=== PATIENT | male | born 2000 | race Caucasian/White ===

== ENCOUNTER → 2020-02-15 16:51 | Outpatient (BNVA) | payer BC, SELFPAY | PROVIDERS: Family Provider General Practice; PCP Family Medicine; Visit Provider Nurse Practitioner Family | DX: J02.9 Acute pharyngitis, unspecified (principal); J02.0 Streptococcal pharyngitis | CPT/HCPCS: 87880 ==

== ENCOUNTER → 2022-12-08 16:42 | Outpatient (BNVA) | payer SELFPAY | PROVIDERS: Family Provider General Practice; PCP Family Medicine; Visit Provider Registered Nurse Neonatal Intensive Care | DX: S29.9XXA Unspecified injury of thorax, initial encounter (principal); W19.XXXA Unspecified fall, initial encounter | CPT/HCPCS: 71046 ==

== ENCOUNTER 2023-03-15 21:00 | Emergency (ER) | payer SELFPAY ==
[2023-03-15 21:08] VITALS: BP 157/101; PULSE 114; RESP 16; TEMP 37.1; O2SAT 98; BMI 44.7
--- NOTE | 2023-03-15 21:26 | W.ED.BACK ---
HPI - Back Pain/Injury General: Chief Complaint: Back Pain/Injury Stated Complaint: cough, back pain Time Seen by Provider: 03/15/23 21:14 Source: patient Mode of arrival: ambulatory Limitations: no limitations History of Present Illness: Patient is a 22-year-old male who presents to ED today with complaint of posterior rib/chest pain. Patient states he has had a cough for several weeks now. He states earlier today he was coughing so hard that he heard a pop in the left side of his back. Since then he has had pain with deep inhalation, movement, further coughing. He has not complaining of shortness of breath or difficulty breathing. No abdominal pain. He has not been running fevers. MD elicited complaint: back pain Onset (ago): hour(s) Timing: constant Severity: severe Similar Symptoms Previously: No Radiation: none Exacerbating factors: movement and other (coughing) Relieving factors: none Associated symptoms: Deny abdominal pain, chills, fatigue, fever(s), nausea, syncope or vomiting Work related injury: No Review of Systems Const: Denies: fever(s), chills, body aches, fatigue or malaise Card: Reports: chest pain (L posterior chest wall pain); Denies: palpitations, irregular heart rhythm, edema, swelling of feet/ankles, lightheadedness, syncope, pre-syncope, dyspnea on exertion, orthopnea, leg pain with exertion or acrocyanosis Resp: Reports: dyspnea, non-productive cough and pain on inspiration; Denies: productive cough, wheezing, stridor, change in phlegm color, hemoptysis or chest congestion GI: Denies: abdominal pain, nausea or vomiting Musc: Reports: back pain; Denies: neck pain, extremity pain, extremity swelling, joint pain or joint swelling Skin/Breast: Denies: rash Neuro: Denies: headache(s), numbness in extremities, weakness in extremities, sensory changes or dizziness PFSH ED PFSH: Social History Smoking and tobacco status: never smoked Alcohol intake: never Substance/Drug Use: never Physical Exam Const: COMMON NORMALS: no acute distress, patient oriented x3, no limitations and alert GENERAL APPEARANCE: cooperative NUTRITIONAL APPEARANCE: obese ORIENTATION/CONSCIOUSNESS: Yes awake, Yes oriented to person, Yes oriented to place and Yes oriented to time Chest: COMMONS NORMALS: normal inspection of the chest CHEST: Yes tenderness (posteriolateral lower chest wall/rib pain; no crepitus noted) Resp: COMMON NORMALS: normal respiratory effort and clear to auscultation bilaterally AUSCULTATION: clear to auscultation bilaterally Cardio: COMMON NORMALS: regular rate and regular rhythm RATE: regular rate RHYTHM: regular rhythm GI: COMMON NORMALS: Normal to inspection, nondistended, normoactive bowel sounds present, Soft to palpation, non-tender and no masses PALPATION: Yes Soft to palpation Neuro: COMMON NORMALS: patient oriented x3 SENSORIUM/ORIENTATION: Yes alert, Yes oriented to person, Yes oriented to place and Yes oriented to time Course Vital Signs: Vital signs: Vital Signs Temperature 98.7 F 03/15/23 23:25 Pulse Rate 101 H 03/15/23 23:25 Respiratory Rate 16 03/15/23 23:25 Blood Pressure 155/105 03/15/23 23:25 Pulse Oximetry 99 03/15/23 23:25 Oxygen Delivery Me thod Room Air 03/15/23 21:08 MDM - Back Pain/Injury Medical Decision Making Patient here with a cough over the past several weeks as well as a complaint of coughing earlier today and hearing a pop to the posterior lateral aspect of the left chest wall. Patient does have tenderness here but no crepitus was appreciated. Lung sounds are normal. CXR showing no osseous abnormality but he does have findings suspicious for left lower lobe pneumonia. I suspect this is viral however we will go ahead and place him on antibiotics for coverage of community-acquired pneumonia. Will obtain respiratory panel. Will call with any results and we can tailor treatment at that time. Return ED precautions given. Will write him for anti-inflammatories for the chest wall strain. Labs Radiology Impressions Ribs X-Ray 03/15/23 21:52 IMPRESSION: 1. Mild nonspecific airspace disease at the left lung base, suspicious for left lower lobe pneumonia. This is new when compared to 12/08/2022. 2. No acute osseous abnormality demonstrated. All radiology interpretation(s) finalized by discharge Discharge Plan Discharge Patient Disposition: Home Clinical Impression: Chest wall muscle strain Qualifiers: Encounter type: initial encounter Qualified Code(s): S29.011A - Strain of muscle and tendon of front wall of thorax, initial encounter Left lower lobe pneumonia Qualifiers: Pneumonia type: due to unspecified organism Qualified Code(s): J18.9 - Pneumonia, unspecified organism Condition: Stable Prescriptions: New amoxicillin 500 mg capsule 500 mg PO BID 7 Days Qty: 14 0RF azithromycin 250 mg tablet See Rx Instructions .ROUTE .COMPLEX Qty: 6 0RF Rx Instructions: take 500 mg today (day 1), then 250 mg for 4 days (days 2-5) ibuprofen 800 mg tablet 800 mg PO Q8H PRN (Reason: pain) Qty: 20 0RF Discharge Orders: Discharge ED (Routine); Ordered 03/15/23 Ordered By: Cheryl Harris Referrals: Kelton Harmon MD [Family Provider] - Yamilet Jackson FNP [Primary Care Provider] - Activity Restrictions/Additional Instructions: As we discussed we will collect a respiratory panel and sent to lab. Results of this will not be resulted until tomorrow. You should get a follow-up phone call if something comes back positive. Your chest x-ray today showing suspicion for a left lower lobe pneumonia. You will be placed on antibiotics for this. We will treat your musculoskeletal chest wall strain with anti-inflammatories. Please follow-up with primary care later this week if symptoms do not seem to be improving. May return to the emergency department for worsening pain, shortness of breath, difficulty breathing, fevers, or any other concerns you may have. Coding Level of Care Code ED Clinical Technologist for Bekah Sahu
--- NOTE | 2023-03-15 21:52 | XRR_ITS ---
PROCEDURE INFORMATION: Exam: XR Left Ribs with PA Chest Exam date and time: 03/15/2023 9:59 PM Age: 22 years old Clinical indication: Painful respiration; Additional info: Cough, chest pain TECHNIQUE: Imaging protocol: Radiologic exam of the left ribs with PA chest. Views: 3 views COMPARISON: CR XR chest 2V* [id number] 12/08/2022 4:52 PM FINDINGS: Lungs: Mild nonspecific airspace disease at the left lung base, suspicious for left lower lobe pneumonia. Pleural spaces: No pleural effusion. No pneumothorax. Heart/Mediastinum: Unremarkable. No cardiomegaly. Bones/joints: No acute fracture or other acute osseous abnormality. XR/XR ribs LT mn 3V w CXR1V [id number] IMPRESSION: 1. Mild nonspecific airspace disease at the left lung base, suspicious for left lower lobe pneumonia. This is new when compared to 12/08/2022. 2. No acute osseous abnormality demonstrated.
[2023-03-15] MEDS: ketorolac 60 mg/2 mL INJ IM (22:12)
[2023-03-15] MEDS: orphenadrine 30 mg/mL Inj 2 mL 60 MG IM (22:12)
[2023-03-15 22:18] VITALS: BP 155/105; PULSE 101; RESP 16; O2SAT 99
[2023-03-15] MEDS: azithromycin 250 mg Tablet 500 MG PO (23:17)
[2023-03-15] MEDS: amoxicillin 500 mg Capsule PO (23:17)
[2023-03-15 23:25] VITALS: BP 155/105; PULSE 101; RESP 16; TEMP 37.1; O2SAT 99
[2023-03-16 01:18] LABS: Adenovirus Not Detected (NOT DETECT); Chlamydia Pneumoniae Not Detected (NOT DETECT); Coronavirus 229E,HKU1,NL63,OC4 Not Detected (NOT DETECT); Human Metapneumovirus Not Detected (NOT DETECT); Human Rhinovirus/Enterovirus Not Detected (NOT DETECT); Influenza A Not Detected (NOT DETECT); Influenza A H1 Not Detected (NOT DETECT); Influenza A H1-2009 Not Detected (NOT DETECT); Influenza A H3 Not Detected (NOT DETECT); Influenza B Not Detected (NOT DETECT); Mycoplasma Pneumoniae Not Detected (NOT DETECT); Parainfluenza Virus Type 1 Not Detected (NOT DETECT); Parainfluenza Virus Type 2 Not Detected (NOT DETECT); Parainfluenza Virus Type 3 Not Detected (NOT DETECT); Parainfluenza Virus Type 4 Not Detected (NOT DETECT); Respiratory Syncytial Virus A Not Detected (NOT DETECT); Respiratory Syncytial Virus B Not Detected (NOT DETECT); SARS-COV-2 Not Detected (NOT DETECT)
== END 2023-03-15 23:26 | disposition home or self-care (01) ==
PROVIDERS: Emergency Provider Physician Assistant; Family Provider General Practice; PCP Registered Nurse
DX: J18.9 Pneumonia, unspecified organism (principal); S29.011A Strain of muscle and tendon of front wall of thorax, initial encounter; X50.9XXA Other and unspecified overexertion or strenuous movements or postures, initial encounter
CPT/HCPCS: 71101; 87486; 87581; 87633; 96372; 99284; J1885; J2360; Q0144

== ENCOUNTER → 2023-06-21 16:26 | Outpatient (BNVA) | payer OTHER, SELFPAY | PROVIDERS: Family Provider General Practice; PCP Family Medicine Adult Medicine; Visit Provider Family Medicine Adult Medicine | DX: R63.4 Abnormal weight loss (principal); R63.1 Polydipsia; F54 Psychological and behavioral factors associated with disorders or diseases classified elsewhere; R11.2 Nausea with vomiting, unspecified; F41.9 Anxiety disorder, unspecified; F32.A Depression, unspecified; E66.9 Obesity, unspecified; K21.9 Gastro-esophageal reflux disease without esophagitis | CPT/HCPCS: 80053; 83036; 84443; 85025 ==

== ENCOUNTER 2023-07-07 09:07 | Outpatient (CLI) | payer OTHER, SELFPAY ==
--- NOTE | 2023-07-07 09:30 | US_ITS ---
WS: [id number] ULTRASOUND ABDOMEN CLINICAL INFORMATION: 90 lb weight loss COMPARISON: None. FINDINGS: Liver Size: Enlarged Craniocaudal length: 17.2 cm. Echogenicity: Normal. Surface nodularity: None. Mass (size and location): 2 echogenic lesions nonspecific but suspicious for cavernous hemangiomas. Bile ducts Intrahepatic ducts: Normal. Common bile duct diameter: 0.4 cm. Gallbladder Normal. Gallstones: None. Gallbladder sludge: None. Gallbladder wall thickening: None. Pericholecystic fluid: None. Sonographic Mcmanus sign: Absent. Pancreas Not well seen Spleen Splenomegaly: Mild Craniocaudal length: 12.5 cm. Right kidney: Hydronephrosis upper RIGHT kidney. Parenchymal calcifications. Hydronephrosis: Mild Size: 13.8 cm x 6.6 cm x 6.7 cm Left kidney: Normal. Hydronephrosis: None. Size: 12.8 cm x 4.9 cm x 5.0 cm. Abdominal aorta and IVC Visualized portions are normal. Ascites: None. IMPRESSION: 1. Small RIGHT pleural effusion. Small pericardial effusion. 2. Normal gallbladder and common bile duct. 3. No hydronephrosis in the LEFT kidney. 4. Mild splenomegaly measuring 12.5 cm. 5. 2 small echogenic lesions in the liver measuring 1.1 x 0.9 cm and 1.9 x 1.7 cm. These most likely represent small cavernous hemangiomas but recommend contrast-enhanced CT abdomen pelvis with liver p rotocol for confirmation. 6. Mild hepatomegaly measuring 17.2 cm 7. Mild hydronephrosis upper pole RIGHT kidney with intraparenchymal calcifications. Recommend furth er evaluation with noncontrast CT abdomen/pelvis to evaluate for obstruction. *Recommend follow-up with noncontrast CT abdomen pelvis (to evaluate for obstructing renal calculi) f ollowed by contrast-enhanced CT abdomen pelvis with liver protocol with delayed imaging for liver hem angioma evaluation.
== END 2023-07-07 09:08 | disposition home or self-care (01) ==
LOC: RAD 09:08
PROVIDERS: Family Provider General Practice; PCP Family Medicine Adult Medicine; Visit Provider Family Medicine Adult Medicine
DX: R11.2 Nausea with vomiting, unspecified (principal); R63.4 Abnormal weight loss; E66.9 Obesity, unspecified; I31.39 Other pericardial effusion (noninflammatory); J90 Pleural effusion, not elsewhere classified; D73.9 Disease of spleen, unspecified; K76.9 Liver disease, unspecified; R16.0 Hepatomegaly, not elsewhere classified; N13.30 Unspecified hydronephrosis; N20.0 Calculus of kidney
CPT/HCPCS: 76700

== ENCOUNTER → 2023-07-13 16:32 | Outpatient (BNVA) | payer OTHER, SELFPAY | PROVIDERS: Family Provider General Practice; PCP Family Medicine Adult Medicine; Visit Provider Family Medicine Adult Medicine | DX: R16.2 Hepatomegaly with splenomegaly, not elsewhere classified (principal); R93.5 Abnormal findings on diagnostic imaging of other abdominal regions, including retroperitoneum; D72.9 Disorder of white blood cells, unspecified; R05.3 Chronic cough; J40 Bronchitis, not specified as acute or chronic; R63.4 Abnormal weight loss | CPT/HCPCS: 85025 ==

== ENCOUNTER → 2023-07-27 16:26 | Outpatient (BNVA) | payer OTHER, SELFPAY | PROVIDERS: Family Provider General Practice; PCP Family Medicine Adult Medicine; Visit Provider Family Medicine Adult Medicine | DX: D72.9 Disorder of white blood cells, unspecified (principal); R63.4 Abnormal weight loss; R16.2 Hepatomegaly with splenomegaly, not elsewhere classified; R93.5 Abnormal findings on diagnostic imaging of other abdominal regions, including retroperitoneum; K21.9 Gastro-esophageal reflux disease without esophagitis; R22.32 Localized swelling, mass and lump, left upper limb; R05.3 Chronic cough; E66.9 Obesity, unspecified; F41.9 Anxiety disorder, unspecified; F32.A Depression, unspecified; Z79.899 Other long term (current) drug therapy | CPT/HCPCS: 85025; 86140 ==

== ENCOUNTER 2023-08-03 12:44 | Outpatient (CLI) | payer OTHER, MEDICAID, SELFPAY ==
--- NOTE | 2023-08-03 13:15 | CTR_ITS ---
PROCEDURE INFORMATION: Exam: CT Chest Without and With Contrast; Diagnostic Exam date and time: 08/03/2023 1:36 PM Age: 22 years old Clinical indication: Other: 100lb weight loss since feb. Cough since November, elevated white count; Additional info: Weight loss, elevated white count for 4 months last was 19,000 left TECHNIQUE: Imaging protocol: Diagnostic computed tomography of the chest without and with contrast. Radiation optimization: All CT scans at this facility use at least one of these dose optimization techniques: automated exposure control; mA and/or kV adjustment per patient size (includes targeted exams where dose is matched to clinical indication); or iterative reconstruction. Contrast material: OMNI 350; Contrast volume: 95 ml; Contrast route: INTRAVENOUS (IV); COMPARISON: CR (CHEST, ) 03/15/2023 9:59 PM RADIATION DOSE METRICS: Total DLP (mGy-cm): 2218.63 FINDINGS: Thyroid: The partially imaged bilateral thyroid lobes are unremarkable. Lungs: Innumerable pulmonary nodules, which where discernible appear to be peribronchovascular in distribution. Focal call consolidative densities anterior right apex, anterior and posterior segments right upper lobe. Pleural spaces: Large dependent right pleural effusion. No pneumothorax. Heart: No cardiomegaly. No pericardial effusion. Coronary arteries: No coronary artery calcifications. Lymph nodes: Extensive left axillary lymphadenopathy, largest 3 cm short axis. Mild right axillary lymphadenopathy, largest measuring 1.9 cm short axis. Right supraclavicular lymph node measuring 2.6 cm short axis. Left supraclavicular lymph node measuring 18 mm short axis. Anterior mediastinal lymphadenopathy, largest 2.0 cm short axis. Right internal mammary lymph node measuring 17 mm short axis. Right paratracheal lymph nodes, largest 3.3 cm short axis. Right hilar lymph nodes, largest 3.5 cm short axis. Subcarinal lymph node measuring 4.1 cm short axis. Left hilar lymph nodes, largest 3.0 cm short axis. Right paraesophageal lymph nodes, largest 2.9 cm short axis. Vasculature: Unremarkable. No aortic aneurysm. Bones/joints: Left mid thoracic spine vertebral body marginal osteophyte. Destructive lesion left posterolateral 11th rib with adjacent callus. Subacute possibly pathologic fracture posterolateral left 10th rib. Superior T2 lytic lesion which is poorly delineated and proximally 12.5 mm in size. Moderate T7-8 and T8-9 spondylosis. Mild T6-7 and T7-8 spondylosis. Soft tissues: Unremarkable. PROCEDURE INFORMATION: Exam: CT Abdomen And Pelvis Without And With Contrast Exam date and time: 08/03/2023 1:36 PM Age: 22 years old Clinical indication: Other: 100lb weight loss since feb. Cough since November, elevated white count; Additional info: Weight loss, elevated white count for 4 months last was 19,000 left TECHNIQUE: Imaging protocol: Computed tomography of the abdomen and pelvis without and with contrast. Radiation optimization: All CT scans at this facility use at least one of these dose optimization techniques: automated exposure control; mA and/or kV adjustment per patient size (includes targeted exams where dose is matched to clinical indication); or iterative reconstruction. Contrast material: OMNI 350; Contrast volume: 95 ml; Contrast route: INTRAVENOUS (IV); COMPARISON: US abdomen complete* [id number] 07/07/2023 9:15 AM RADIATION DOSE METRICS: Total DLP (mGy-cm): 2218.63 FINDINGS: Liver: Focal hypoattenuation of the hepatic left lobe medial segment adjacent to the falciform ligament fissure and adjacent to the gallbladder fossa, likely representing focal fatty infiltration. Gallbladder and bile ducts: Normal. No calcified stones. No ductal dilation. Pancreas: Normal. No ductal dilation. Spleen: Multiple hypoenhancing splenic foci, largest 10.9 mm. The spleen is enlarged measuring cm longitudinally. Adrenal glands: Normal. No mass. Kidneys and ureters: Horseshoe kidney. Right renal calculi, the largest in the lateral kidney extending into the lateral upper renal pelvis measuring 2.7 cm, with upper pole severe caliectasis. Stomach and bowel: Unremarkable. No obstruction. No mucosal thickening. Appendix: No evidence of appendicitis. Intraperitoneal space: Unremarkable. No free air. No significant fluid collection. Vasculature: Right pelvic calcified phleboliths. Lymph nodes: Upper retroperitoneal (renal level, suprarenal predominant) and celiac lymphadenopathy, the largest in the aortocaval lymph node measuring 3.5 cm AP dimension. Left internal iliac lymph node measuring 8.7 mm short axis. Right external iliac lymph node measuring 10.5 mm short axis. Left common iliac lymph nodes, largest measuring 8.8 mm short axis. Urinary bladder: The urinary bladder is decompressed and difficult to assess. Reproductive: Unremarkable as visualized. Bones/joints: Mild right L1-L2 central spondylosis. Moderate L3-L4, mild L5-S1 and T12-L1 spondylosis. Soft tissues: Unremarkable. CT/CT abdpel wo/w [id number] IMPRESSION: 1. Extensive lymphadenopathy. Consider lymphoma. 2. Large dependent right pleural effusion. 3. Innumerable pulmonary nodules, predominantly peribronchovascular. Differential diagnosis includes neoplastic and infectious etiologies. 4. Focal call consolidative densities anterior right apex, anterior and posterior segments right upper lobe. Pneumonia is difficult to exclude. Clinical correlation is recommended. 5. Lytic bony lesions concerning for neoplasia. 6. Please see the abdomen/pelvis CT report of the same date for additional findings. IMPRESSION: 1. Horseshoe kidney. 2. Right renal calyceal and pelvic lithiasis, with upper pole major calyx obstruction. 3. Upper abdominal lymphadenopathy. Consider lymphoma. 4. Multiple hypoenhancing splenic foci, differential diagnosis includes neoplasia and infection. 5. Mild splenomegaly. 6. Please see the CT chest report of the same date for additional findings.
[2023-08-03] MEDS: iohexol 350 mg/mL 500 mL Btl (per mL) PO (13:29)
[2023-08-03] MEDS: iohexol 350 mg/mL 500 mL Btl (per mL) IV (13:46)
== END 2023-08-03 12:45 | disposition home or self-care (01) ==
LOC: RAD 12:44
PROVIDERS: Family Provider General Practice; PCP Family Medicine Adult Medicine; Visit Provider Family Medicine Adult Medicine
DX: R16.2 Hepatomegaly with splenomegaly, not elsewhere classified (principal); R11.2 Nausea with vomiting, unspecified; N20.0 Calculus of kidney; Q63.1 Lobulated, fused and horseshoe kidney; R59.1 Generalized enlarged lymph nodes; J90 Pleural effusion, not elsewhere classified; R91.8 Other nonspecific abnormal finding of lung field; M89.9 Disorder of bone, unspecified; R63.4 Abnormal weight loss; D72.9 Disorder of white blood cells, unspecified
CPT/HCPCS: 71260; 74178; Q9967

== ENCOUNTER 2023-08-08 07:28 | Emergency (ER) | payer OTHER, MEDICAID, SELFPAY ==
[2023-08-08 07:35] VITALS: BP 159/89; PULSE 119; RESP 16; TEMP 37.2; O2SAT 89; BMI 31.3
--- NOTE | 2023-08-08 07:36 | XR_ITS ---
WS: [id number] PORTABLE CHEST HISTORY: dyspnea/cough COMPARISON: 03/15/2023, chest CT 08/03/2023 Patient has extensive abnormalities throughout both lungs and into the mediastinum. There are numerou s scattered nodular opacifications and more consolidated areas centrally. On the recent CT there are multiple pulmonary nodules of various sizes with lymphadenopathy centrally. Small bilateral pleural e ffusions. Cardiac size: Heart size is being obscured by the airspace disease and adenopathy. On the recent CT h eart size was normal. Mediastinum/Aorta: Dense areas of consolidation greatest along the RIGHT paratracheal region and RIGH T infrahilar consistent with adenopathy previously described. Patient has extensive bilateral adenopa thy encasing the trachea. No osseous abnormality seen. IMPRESSION: 1. Innumerable bilateral pulmonary nodules with mediastinal and hilar lymphadenopathy. These changes were also described on the CT of 08/03/2023. 2. Most likely neoplastic/lymphoma or infectious such as fungal in etiology.
--- NOTE | 2023-08-08 08:09 | ED_ITS ---
HPI - General Adult 2 General: Chief complaint: General Medical Stated complaint: cough Time Seen by Provider: 08/08/23 07:35 Source: patient Mode of arrival: ambulatory History of Present Illness: 22-year-old male presents emergency room he states he has not felt well since February 2023. Onset (ago): month(s) Severity: moderate Pain Consistency: constant Relieving factors: none Exacerbating factors: none Associated symptoms: Deny chest pain, confusion, cough, diaphoresis, decreased appetite, dyspnea, fevers/chills, headache(s), malaise, nausea, rash, palpitations, seizures, short of breath, syncope, vomiting or weakness Treatments prior to arrival: none Review of Systems 2 Const: Denies: fever(s), chills, malaise or diaphoresis Card: Denies: chest pain, palpitations or syncope Resp: Denies: dyspnea GI: Denies: abdominal pain, nausea or vomiting : Denies: flank pain, dysuria, urinary frequency or urinary urgency Musc: Reports: neck pain; Denies: back pain Skin/Breast: Denies: rash or pruritus Neuro: Denies: headache(s) or confusion Stanley/Lymph: Reports: enlarged lymph nodes and tender lymph nodes PFSH ED 2 PFSH: Medical History (Updated 08/08/23 @ 16:30 by Antoine Palumbo DO) Metastasis to lung Mass of left axilla Bronchitis Chronic coughing Neutrophilic leukocytosis Hepatosplenomegaly Abnormal abdominal ultrasound Excessive weight loss Allergic rhinitis due to allergen Obesity (BMI 30-39.9) Anxiety and depression GERD (gastroesophageal reflux disease) No pertinent past medical history Surgical History No pertinent past surgical history Family History Father Stroke Hypertension Mother Thyroid disease Social History Smoking and tobacco/nicotine status: never used tobacco/nicotine Alcohol intake: never Substance/Drug Use: never Physical Exam 2 Const: GENERAL APPEARANCE: cooperative and comfortable O RIENTATION/CONSCIOUSNESS: Yes awake, Yes oriented to person, Yes oriented to place and Yes oriented to time HENMT: COMMON NORMALS: normocephalic, atraumatic and hearing grossly normal bilaterally HEAD & SCALP: normocephalic and atraumatic Lymph: LYMPHATIC: lymphadenopathy (Anterior and posterior cervical supraclavicular and axillary bilaterally) bilateral OTHER: No inguinal nodes noted Resp: COMMON NORMALS: normal respiratory effort, No retractions, No use of accessory muscles and clear to auscultation bilaterally AUSCULTATION: clear to auscultation bilaterally Cardio: COMMON NORMALS: regular rate, regular rhythm and No murmurs present (Cardio) RATE: regular rate RHYTHM: regular rhythm GI: COMMON NORMALS: Soft to palpation and No hepatosplenomegaly present A USCULTATION: Yes normoactive bowel sounds PALPATION: Yes Soft to palpation, No Tenderness to palpation present (GI), No Guarding due to palpation present (GI) and Yes No hepatosplenomegaly present Extremity: COMMON NORMALS: normal to inspection, capillary refill normal, no clubbing, cyanosis or edema, no calf tenderness and no pedal edema Neuro: SENSORIUM/ORIENTATION: Yes oriented to person, Yes oriented to place and Yes oriented to time Skin: COMMON NORMALS: no rashes or lesions noted GENERAL SKIN EXAM: no rashes or lesions noted Course 2 Vital Signs: Vital signs: Vital Signs Temperature 98.9 F 08/08/23 07:35 Pulse Rate 119 H 08/08/23 07:35 Respiratory Rate 16 08/08/23 07:35 Blood Pressure 159/89 08/08/23 07:35 Pulse Oximetry 86 L 08/08/23 12:03 Oxygen Delivery Me thod Room Air 08/08/23 07:35 Oxygen Flow Rate 3 08/08/23 12:03 [facility] - General Adult Medical Decision Making Patient has had significant weight loss also has extremely abnormal imaging CTA of the chest and the chest x-ray. There is no PE. He is requiring oxygen. I discussed with Dr. Baldwin and with Dr. Vickers. After discussion we decided ultimately discharge patient home with oxygen support which she did qualify for 3 L/min. We have scheduled an ultrasound-guided needle core biopsy tomorrow which Dr. Vázquez agreed with. I have confirmed in that with scheduling that is scheduled for tomorrow. He had an appoint with Dr. Baldwin tomorrow we have canceled that and rescheduled for later in the week or hoping that by then we will have confirmation of diagnosis by tissue biopsy. Also contacted Dr. Fuller to update him on what was done today is to help coordinate and expedite diagnosis and treatment. Patient was discharged home with oxygen from home after home O2 eval. Return if has any worsening problems. Medical Records I reviewed the patient's medical records. Lab Data I reviewed the patient's lab results. 08/08/23 08:23 08/08/23 08:23 Laboratory Results WBC 20.56 10^3/uL (3.29-11.43) H 08/08/23 08:23 RBC 4.93 10^6/uL (3.85-5.65) 08/08/23 08:23 Hgb 11.60 g/dL (11.27-16.99) 08/08/23 08:23 Hct 38.0 % (37-53) 08/08/23 08:23 MCV 77.1 fl (82-101) L 08/08/23 08:23 MCH 23.5 pg (27-33) L 08/08/23 08:23 MCHC 30.5 g/dL (30-55) 08/08/23 08:23 RDW 18.2 % (12.1-15.1) H 08/08/23 08:23 Plt Count 660 10^3/cmm (157-399) H 08/08/23 08:23 MPV 8.9 fL (7.4-10.4) 08/08/23 08:23 Neut % (Auto) 79.5 % 08/08/23 08:23 Lymph % (Auto) 7.7 % 08/08/23 08:23 Osborne % (Auto) 10.9 % 08/08/23 08:23 Eos % (Auto) 0.5 % 08/08/23 08:23 Baso % (Auto) 0.3 % 08/08/23 08:23 Neut # (Auto) 16.34 10^3/uL (1.8-7.7) H 08/08/23 08:23 Lymph # (Auto) 1.6 10^3/uL (0.8-4.8) 08/08/23 08:23 Osborne # (Auto) 2.2 10^3/uL (0.2-0.9) H 08/08/23 08:23 Eos # (Auto) 0.1 10^3/uL (0.0-0.8) 08/08/23 08:23 Baso # (Auto) 0.1 10^3/uL (0.0-0.1) 08/08/23 08:23 Nucleated RBC % (auto) 0 % 08/08/23 08:23 Nucleated RBCs # 0.0 /100WBC 08/08/23 08:23 Sodium 132 mmol/L (136-145) L 08/08/23 08:23 Potassium 3.6 mmol/L (3.5-5.1) 08/08/23 08:23 Chloride 93 mmol/L (98-107) L 08/08/23 08:23 Carbon Dioxide 26 mmol/L (22-29) 08/08/23 08:23 Anion Gap 16.6 (5-19) 08/08/23 08:23 BUN 4 mg/dL (6-20) L 08/08/23 08:23 Creatinine 0.4 mg/dL (0.7-1.2) L 08/08/23 08:23 GFR Calculation 264.3 mL/min (90-130) H 08/08/23 08:23 Glucose 102 mg/dL (65-115) 08/08/23 08:23 Calculated Osmolality 271 mOsm/kg (285-295) L 08/08/23 08:23 Lactic Acid 1.8 mmol/L (0.5-2.2) 08/08/23 08:23 Calcium 8.3 mg/dL (8.5-10.5) L 08/08/23 08:23 Total Bilirubin 0.4 mg/dL (0.15-1.2) 08/08/23 08:23 AST 25 U/L (0-40) 08/08/23 08:23 ALT 25 U/L (0-41) 08/08/23 08:23 Alkaline Phosphatase 112 U/L (40-130) 08/08/23 08:23 Lactate Dehydrogenase 251 U/L (135-225) H 08/08/23 08:23 Total Protein 6.9 g/dL (6.6-8.7) 08/08/23 08:23 Albumin 3.0 g/dL (3.5-5.2) L 08/08/23 08:23 Globulin 3.9 g/dL (1.3-4.6) 08/08/23 08:23 Coronavirus 229E (PCR) Not detected (NOT DETECT) 08/08/23 08:25 HIV 1&2 Ab & HIV 1 Ag Non-reactive (Non-Reactiv) 08/08/23 08:23 HIV 1&2 Antibody Non-reactive (Non-Reactiv) 08/08/23 08:23 Influenza A (H1) PCR Not detected (NOT DETECT) 08/08/23 08:25 Influ A (H1/09) PCR Not detected (NOT DETECT) 08/08/23 08:25 Influenza A (H3) PCR Not detected (NOT DETECT) 08/08/23 08:25 Influenza Type A Ag Cancelled 08/08/23 08:25 Influenza Type A (PCR) Not detected (NOT DETECT) 08/08/23 08:25 Influenza Type B Ag Cancelled 08/08/23 08:25 Influenza Type B (PCR) Not detected (NOT DETECT) 08/08/23 08:25 SARS-CoV-2 (PCR) Not detected (NOT DETECT) 08/08/23 08:25 All radiology interpretation(s) finalized by discharge Discharge Plan Discharge Patient Disposition: Home Clinical Impression: Metastasis to lung of unknown origin, Leukocytosis, Lymphadenopathy, Excessive weight loss Condition: Stable Prescriptions: No Action albuterol sulfate [Ventolin HFA] 90 mcg/actuation HFA aerosol inhaler 2 puff inhalation QID Qty: 6.7 0RF clarithromycin 500 mg tablet 500 mg PO BID Qty: 30 0RF Discharge Orders: Discharge ED (Routine); Ordered 08/08/23 Ordered By: Antoine Palumbo Other Ambulatory Orders: DME: Oxygen (Order) Location: None Selected Ordered By: Antoine Palumbo Referrals: Enrrique Fuller MD [Primary Care Provider] - Walt Baldwin MD [Hospitalist] - (Dr. Baldwin's office is cancelling your appointment tomorrow since you will be having a biopsy. They will watch for your biopsy results, and they will call you with a follow-up appointment date. ) Patient Instructions: Opioid Safety, Pain Management Activity Restrictions/Additional Instructions: Thank you for choosing [facility] for your healthcare needs today. Please realize this is an emergency room and that we are providing you with a medical screening exam and this may not be complete and all inclusive of all the testing and or work up that you may need to determine your ailment or severity of your illness. It is very important that you follow up as instructed or that you return to the Emergency Department should you have concerns or if your condition changes or worsens in any way. Case management is currently working on scheduling the lymph node biopsy tomorrow in the radiology department. You do require oxygen recommend you wear oxygen at 2 L/min continuously. Case management also reschedule your appointment with the oncology clinic for later this week. Coding Level of Care Code ED Hogshead Mat Inspector for Bekah Sahu
--- NOTE | 2023-08-08 08:12 | CT_ITS ---
WS: [id number] CT CHEST ANGIOGRAPHY WITH REFORMATS HISTORY: hypoxia/tachycardia TECHNIQUE: Contiguous axial images are obtained through the chest during arterial injection of intrav enous contrast. Images are reconstructed to evaluate the pulmonary arteries. MIP imaging also reviewe d. All CT scans at [facility] use at least one of these dose optimization techniques: automat ed exposure control; mA and/or kV adjustment per patient size (includes targeted exams where dose is matched to clinical indication); or iterative reconstruction. CONTRAST: Omnipaque 350; 100 mL IV. DLP: 535.96 mGy.cm COMPARISON: 08/03/2023 Adequate opacification of the pulmonary arteries. Centrally there is no pulmonary emboli. Opacificati on becomes limited within the distal pulmonary arteries. There is soft tissue from adenopathy and air space disease encasing the central and peripheral pulmonary arteries. No embolism is identified at le ast to the lobar and proximal segmental branches. Normal size pulmonary artery. Normal sized thoracic aorta. As noted on a prior recent CT of 08/03/2023 there are innumerable pulmonary nodules and opacifications with coalescence throughout both lungs, greatest throughout the RIGHT lung along with a small to mode rate RIGHT pleural effusion. There is extensive mediastinal and hilar lymphadenopathy. Bilateral lowe r cervical chain and supraclavicular lymphadenopathy. There is extensive bilateral axillary and subpe ctoralis adenopathy. Much greater distribution of abnormal lymph nodes on the LEFT. There is extensiv e mediastinal and hilar lymphadenopathy which is confluent. Retrocrural lymph nodes. Reidentified are mesenteric and retroperitoneal lymph nodes noted in the upper abdomen. Large lymph nodes encasing th e celiac axis. Abnormal posterolateral LEFT 10th and 11th ribs. These may be healing fractures. Increasing soft tiss ue associated with the LEFT rib fracture for which neoplasm cannot be excluded. IMPRESSION: 1. No pulmonary embolism. Beyond the lobar branches the pulmonary artery opacification comes limited . 2. There is extensive, innumerable bilateral pulmonary nodules and consolidations. The areas of dens e consolidation may be pneumonia and these are greatest throughout the RIGHT lung. Nodules probably r epresent metastatic disease but less likely infectious etiology. 3. Patient has extensive lymphadenopathy throughout the chest including the lower neck, supraclavicu lar, axillary, mediastinal and hilar and retrocrural. Lymphadenopathy extends into the upper abdomen to encase the celiac axis and into the retroperitoneum. These findings were described also on 4. 4. Small to moderate RIGHT pleural effusion.
--- NOTE | 2023-08-08 08:13 | ECG_ITS ---
[facility] Test Date: 2023-08-08 Pat Name: Naeem Juarez Department: Room: Gender: Male Erp Engineer: : 2000 Requested By: Antoine Hernandez Order Number: [id number] Helen MD: Rigo Artis M.D. Measurements Intervals [place] Rate: 112 P: 31 [place]: 139 QRS: 16 QRSD: 82 T: 25 QT: 315 QTc: 432 Interpretive Statements SINUS TACHYCARDIA NONSPECIFIC T-WAVE ABNORMALITY ABNORMAL RHYTHM ECG No previous ECG available for comparison Electronically Signed On 08-08-2023 14:18:34 PET TRAINING INSTRUCTOR by Rigo Artis M.D. [email or web address] county memorial hospitalExarauc west chester hospitalShield Therapeutics/store/[id number]
[2023-08-08] MEDS: sodium chloride 0.9% 1,000 ML 999 ML IV (08:26)
[2023-08-08 08:33] LABS: Basophils # 0.1 10^3/uL (0.0-0.1); Basophils % 0.3 %; Eosinophils # 0.1 10^3/uL (0.0-0.8); Eosinophils % 0.5 %; Lymphocytes # 1.6 10^3/uL (0.8-4.8); Lymphocytes % 7.7 %; Mean Corpuscular HGB Conc 30.5 g/dL (30-55); Mean Corpuscular Hemoglobin 23.5 pg (27-33); Mean Corpuscular Volume 77.1 fl (82-101); Mean Platelet Volume 8.9 fL (7.4-10.4); Monocytes # 2.2 10^3/uL (0.2-0.9); Monocytes % 10.9 %; Neutrophils # 16.34 10^3/uL (1.8-7.7); Neutrophils % 79.5 %; Nucleated Red Blood Cells % 0 %; Platelet Count 660 10^3/cmm (157-399); Red Blood Count 4.93 10^6/uL (3.85-5.65); Red Cell Distribution Width 18.2 % (12.1-15.1); White Blood Count 20.56 10^3/uL (3.29-11.43)
[2023-08-08] MEDS: iohexol 350 mg/mL 500 mL Btl (per mL) IV (08:53)
[2023-08-08 08:57] LABS: Alanine Aminotransferase 25 U/L (0-41); Alkaline Phosphatase 112 U/L (40-130); Anion Gap 16.6 (5-19); Aspartate Amino Transferase 25 U/L (0-40); Blood Urea Nitrogen 4 mg/dL (6-20); Calcium 8.3 mg/dL (8.5-10.5); Carbon Dioxide 26 mmol/L (22-29); Chloride 93 mmol/L (98-107); Globulin 3.9 g/dL (1.3-4.6); Glomerular Filtration Rate 264.3 mL/min (90-130); Glucose 102 mg/dL (65-115); Lactate Dehydrogenase 251 U/L (135-225); Osmolality Calculated 271 mOsm/kg (285-295); Potassium 3.6 mmol/L (3.5-5.1); Sodium 132 mmol/L (136-145); Total Bilirubin 0.4 mg/dL (0.15-1.2); Total Protein 6.9 g/dL (6.6-8.7)
[2023-08-08 08:58] LABS: Lactic Sepsis W/Reflex 1.8 mmol/L (0.5-2.2)
--- NOTE | 2023-08-08 10:14 | PC.SOCIAL ---
Lymph Node Biopsy Orders faxed to [facility] Sched[facility]. Called and spoke with them to alert them that Dr. Palumbo is requesting that this be scheduled tomorrow. They are going to work on it and call CM back. Message sent to oncology to see if patient could be scheduled this /Tuesday for f/u of biopsy procedure.
[2023-08-08 10:28] LABS: Adenovirus Not Detected (NOT DETECT); Chlamydia Pneumoniae Not Detected (NOT DETECT); Coronavirus 229E,HKU1,NL63,OC4 Not Detected (NOT DETECT); Human Metapneumovirus Not Detected (NOT DETECT); Human Rhinovirus/Enterovirus Not Detected (NOT DETECT); Influenza A Not Detected (NOT DETECT); Influenza A H1 Not Detected (NOT DETECT); Influenza A H1-2009 Not Detected (NOT DETECT); Influenza A H3 Not Detected (NOT DETECT); Influenza B Not Detected (NOT DETECT); Mycoplasma Pneumoniae Not Detected (NOT DETECT); Parainfluenza Virus Type 1 Not Detected (NOT DETECT); Parainfluenza Virus Type 2 Not Detected (NOT DETECT); Parainfluenza Virus Type 3 Not Detected (NOT DETECT); Parainfluenza Virus Type 4 Not Detected (NOT DETECT); Respiratory Syncytial Virus A Not Detected (NOT DETECT); Respiratory Syncytial Virus B Not Detected (NOT DETECT); SARS-COV-2 Not Detected (NOT DETECT)
[2023-08-08 10:29] LABS: Influenza A Not Detected (NOT DETECT); Influenza A H1 Not Detected (NOT DETECT); Influenza A H1-2009 Not Detected (NOT DETECT); Influenza A H3 Not Detected (NOT DETECT); Influenza B Not Detected (NOT DETECT); Results from Genmark
[2023-08-08 10:41] LABS: HIV 1 & 2 Antibody Non-Reactive (Non-Reactiv); HIV 1 & 2 Antigen Non-Reactive (Non-Reactiv)
[2023-08-08 12:03] VITALS: O2SAT 86; O2SAT 93
--- NOTE | 2023-08-08 13:34 | PC.SOCIAL ---
Hema. Scheduling calls and reports that the soonest that Maeve in Ultrasound reported that they could get patient scheduled is Tuesday morning, and that is if patient has not had any type of blood thinner including NSAIDs in the last 7-[address] Palumbo of this information.
== END 2023-08-08 13:16 | disposition home or self-care (01) ==
PROVIDERS: Emergency Provider Family Medicine; PCP Family Medicine Adult Medicine
DX: C80.1 Malignant (primary) neoplasm, unspecified (principal); C78.00 Secondary malignant neoplasm of unspecified lung; D72.829 Elevated white blood cell count, unspecified; Z11.52 Encounter for screening for COVID-19; R59.1 Generalized enlarged lymph nodes; R63.4 Abnormal weight loss; Z68.31 Body mass index [BMI] 31.0-31.9, adult
CPT/HCPCS: 36415; 71045; 71275; 80053; 83605; 83615; 85025; 87040; 87631; 87635; 87806; 93005; 96360; 99285; J7030; Q9967

== ENCOUNTER 2023-08-09 07:01 | Outpatient (CLI) | payer OTHER, MEDICAID, SELFPAY ==
--- NOTE | 2023-08-09 | US_ITS ---
WS: [id number] ULTRASOUND GUIDED LEFT AXILLARY BIOPSY. INDICATION: LEFT axillary biopsy. Enlarged lymph nodes. FINDINGS: The procedure including risk, benefits, and complications were discussed with the patient w ho agreed to proceed. Timeout was performed. After 1% lidocaine, using ultrasound guidance, 8 18-gaug e core samples were obtained of the largest enlarged LEFT axillary lymph node. No immediate complicat ions. Pathology is pending. IMPRESSION: 1. Uncomplicated LEFT axillary lymph node biopsy 2. Pathology demonstrates Lymph node, left axilla, needle core biopsy: 1. 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 3. Recommend oncology consultation.
[2023-08-10 13:05] LABS: Lymphoma Profile (BBPL) See Report
== END 2023-08-09 07:02 | disposition home or self-care (01) ==
LOC: RAD 07:02
PROVIDERS: PCP Family Medicine Adult Medicine; Visit Provider Family Medicine
DX: C81.14 Nodular sclerosis Hodgkin lymphoma, lymph nodes of axilla and upper limb (principal)
CPT/HCPCS: 38505; 76942; 88184; 88185; 88305; 88342

== ENCOUNTER 2023-08-15 12:54 | Emergency (ER) | payer OTHER, MEDICAID, SELFPAY ==
[2023-08-15] VITALS (7 sets, daily range): BP systolic 143–173; BP diastolic 83–100; PULSE 113–124; RESP 17–20; TEMP 36.6; O2SAT 89–97; BMI 34.2
--- NOTE | 2023-08-15 13:53 | ECG_ITS ---
[facility] Test Date: 2023-08-15 Pat Name: Naeem Juarez Department: Room: Gender: Male Edge Setter: : 2000 Requested By: Rohan Bass Order Number: [id number] Cervantes MD: Mehran Oscar M.D. Measurements Intervals [place] Rate: 119 P: 14 NM: 138 QRS: 16 QRSD: 72 T: 21 QT: 326 QTc: 459 Interpretive Statements SINUS TACHYCARDIA POSSIBLE ANTERIOR MYOCARDIAL INFARCTION , PROBABLY OLD [30 ms Q WAVE IN V3/V4, OR R < 0.2 mV IN V4] Compared to ECG 08/08/2023 08:21:34 Myocardial infarct finding now present T-wave abnormality no longer present Electronically Signed On 08-15-2023 15:43:30 MANDREL MAKER by Mehran Oscar M.D. [email or web address] [email or web address] clinic [email or web address] hospital.[employer]/store/[id number]
[2023-08-15 14:03] LABS: Basophils % 0.2 %; Eosinophils % 0.2 %; Hematocrit 37.4 % (37-53); Lymphocytes # 1.8 10^3/uL (0.8-4.8); Lymphocytes % 9.3 %; Mean Corpuscular HGB Conc 29.4 g/dL (30-55); Mean Corpuscular Hemoglobin 23.1 pg (27-33); Mean Corpuscular Volume 78.4 fl (82-101); Mean Platelet Volume 8.2 fL (7.4-10.4); Monocytes # 1.6 10^3/uL (0.2-0.9); Monocytes % 8.3 %; Neutrophils # 15.28 10^3/uL (1.8-7.7); Neutrophils % 81.4 %; Nucleated Red Blood Cells % 0 %; Platelet Count 567 10^3/cmm (157-399); Red Blood Count 4.77 10^6/uL (3.85-5.65); Red Cell Distribution Width 17.9 % (12.1-15.1); White Blood Count 18.77 10^3/uL (3.29-11.43)
[2023-08-15 14:26] LABS: Partial Thromboplastin Time 38.4 SECONDS (23.9-36.7)
[2023-08-15 14:27] LABS: INR 1.24 (0.8-1.2)
[2023-08-15 14:30] LABS: Troponin(5th) Baseline 9 ng/L (0-15)
[2023-08-15 14:35] LABS: D Dimer 5.54 ug/mLFEU (0-0.59)
[2023-08-15 14:42] LABS: Alanine Aminotransferase 20 U/L (0-41); Alkaline Phosphatase 107 U/L (40-130); Anion Gap 17.3 (5-19); Aspartate Amino Transferase 22 U/L (0-40); Blood Urea Nitrogen 5 mg/dL (6-20); Calcium 8.5 mg/dL (8.5-10.5); Carbon Dioxide 29 mmol/L (22-29); Chloride 93 mmol/L (98-107); Globulin 3.3 g/dL (1.3-4.6); Glomerular Filtration Rate 264.3 mL/min (90-130); Glucose 93 mg/dL (65-115); Magnesium 2.1 mg/dL (1.7-2.3); NT Pro B Type Natriuretic Pept 123 pg/mL (0-125); Osmolality Calculated 277 mOsm/kg (285-295); Potassium 4.3 mmol/L (3.5-5.1); Sodium 135 mmol/L (136-145); Total Bilirubin 0.3 mg/dL (0.15-1.2); Total Protein 6.3 g/dL (6.6-8.7)
--- NOTE | 2023-08-15 15:14 | USR_ITS ---
PROCEDURE INFORMATION: Exam: US Duplex Lower Extremity Veins, Bilateral Exam date and time: 08/15/2023 3:39 PM Age: 22 years old Clinical indication: Swelling (edema) of limb; Lower extremity, left; Additional info: Swelling new onset-h/o new dx hodgkin's TECHNIQUE: Imaging protocol: Real-time duplex ultrasound of the bilateral extremities with 2-D kim scale, color Doppler flow and spectral waveform analysis including responses to compression and other maneuvers (when performed) with image documentation. Complete exam focused on the lower extremity veins. COMPARISON: CT ch abdpel wo/w [id number] 08/03/2023 1:36 PM FINDINGS: Right deep veins: Unremarkable. The common femoral, femoral, proximal profunda femoral and popliteal veins as well as the visualized deep veins of the lower leg are patent without thrombus. Normal Doppler waveforms. Normal compressibility and/or augmentation response. Left deep veins: Unremarkable. The common femoral, femoral, proximal profunda femoral and popliteal veins as well as the visualized deep veins of the lower leg are patent without thrombus. Normal Doppler waveforms. Normal compressibility and/or augmentation response. Superficial veins: Bilateral saphenofemoral junctions are patent without thrombus. Soft tissues: Unremarkable. US/[place] [id number] IMPRESSION: No evidence of deep vein thrombosis.
--- NOTE | 2023-08-15 15:39 | ECG_ITS ---
[facility] Test Date: 2023-08-15 Pat Name: Naeem Juarez Department: Room: Gender: Male Termite Renewal Inspector: : 2000 Requested By: Rohan Bass Order Number: [id number] Cervantes MD: Mehran Oscar M.D. Measurements Intervals [place] Rate: 120 P: 15 SD: 142 QRS: 17 QRSD: 79 T: 20 QT: 313 QTc: 443 Interpretive Statements SINUS TACHYCARDIA POSSIBLE ANTERIOR MYOCARDIAL INFARCTION , PROBABLY OLD [30 ms Q WAVE IN V3/V4, OR R < 0.2 mV IN V4] Compared to ECG 08/15/2023 13:53:25 No significant changes Electronically Signed On 08-15-2023 17:07:40 MRI TECHNICIAN by Mehran Oscar M.D. [email or web address] riverside [facility] hospital.[employer]/store/[id number]
--- NOTE | 2023-08-15 16:17 | ED_ITS ---
HPI - Extremity Problem 2 General: Chief complaint: Extremity Injury, Lower Stated complaint: swollen feet and ankles, cancer pt Time Seen by Provider: 08/15/23 13:38 History of Present Illness: 22-year-old male presents to the emergen cy department with complaints of bilateral lower extremity swelling for the previous 1 week. He states he was recently diagnosed with Hodgkin's lymphoma with significant pulmonary nodules he did have a CT scan on 08/08/2023 that did not show a pulmonary embolism. He is on supplemental oxygen since the diagnosis. His mother states that he sits up in a chair to sleep as he is unable to lay flat because of his tumor burden. Review of Systems 2 General: Reports: 10 or more systems reviewed and unremarkable except in HPI and below Const: Reports: fatigue and malaise Card: Reports: edema Resp: Reports: dyspnea PFS ED 2 PFSH: Medical History (Updated 08/15/23 @ 17:50 by Rohan Bass MD) Metastasis to lung Mass of left axilla Bronchitis Chronic coughing Neutrophilic leukocytosis Hepatosplenomegaly Abnormal abdominal ultrasound Excessive weight loss Allergic rhinitis due to allergen Obesity (BMI 30-39.9) Anxiety and depression GERD (gastroesophageal reflux disease) No pertinent past medical history Surgical History No pertinent past surgical history Family History Father Stroke Hypertension Mother Thyroid disease Social History Smoking and tobacco/nicotine status: former use of tobacco/nicotine Quit status (tobacco/nicotine): has quit using Year quit tobacco: 2021 Former quit date comment: 2 years vaping Alcohol intake: never Substance/Drug Use: never Physical Exam 2 Narrative: EXAM NARRATIVE: Constitutional: the patient appears well nourished and of normal development. Vital signs as documented. No acute distress at present. Alert and oriented-to person, place, time and situation. Head, eyes, ears, nose, mouth, throat: Normocephalic, atraumatic. Pupils-equal, round, reactive to light. No scleral icterus. Normal-appearing external ears. Normal appearing nasal turbinates, no drainage. No obvious oral lesions, posterior oropharynx without erythema or exudates. Neck: Supple, trachea is midline, no lymphadenopathy, no jugular venous distension, thyromegaly, or carotid bruits. Carotid upstrokes are brisk bilaterally. Lungs: Coarse throughout, decreased significantly bilaterally in the bases symmetrical rise and fall of chest, no obvious signs of increased work of breathing at present. Cardiac: Sinus tachycardia, positive S1, S2. No murmurs, rubs or gallops that I can appreciate Abdomen: Soft, non-tender to palpation, normal active bowel sounds to all quadrants. No palpable masses, no organomegaly and abdominal bruits. Extremities: 2+ pulses in the upper extremities that are equal bilaterally, 2+ pulses in the lower extremities that are equal bilaterally. 1+ bilateral lower extremity edema. Moves all extremities well, sensation to all extremities are noted. Skin: Warm, dry, intact. Course 2 Vital Signs: Vital signs: Vital Signs Temperature 97.9 F 08/15/23 13:12 Pulse Rate 118 H 08/15/23 17:30 Respiratory Rate 17 08/15/23 17:30 Blood Pressure 169/98 08/15/23 17:30 Pulse Oximetry 94 08/15/23 17:30 Oxygen Delivery Me thod Nasal Cannula 08/15/23 17:30 Oxygen Flow Rate 3 08/15/23 17:30 MDM - Extremity (Nontraumatic) Medical Decision Making Physical exam completed and documented I will obtain an ultrasound to rule out DVT as well as a CBC CMP and a D-dimer and if the D-dimer is elevated I will obtain a CTA to rule out pulmonary embolism risk. Patient recently had a CTA for ruling out PE on 08/08/2023 given his recent diagnosis of lymphoma he may have developed a clot burden we will evaluate that and treat accordingly. The patient has continued to have swelling to the lower extremities we will provide him Lasix as a written prescription to help him decrease his fluid volume excess and have advised him to utilize compression socks. Medical Records I reviewed the patient's medical records. Lab Data I reviewed the patient's lab results. 08/15/23 13:57 08/15/23 13:57 Radiology Impressions Venous Duplex 08/15/23 15:14 IMPRESSION: No evidence of deep vein thrombosis. Chest CTA 08/15/23 16:25 IMPRESSION: I see no significant exchange administrator the past week. Extensive metastatic tumor again noted along with a moderate right pleural effusion. Laboratory Results WBC 18.77 10^3/uL (3.29-11.43) H 08/15/23 13:57 RBC 4.77 10^6/uL (3.85-5.65) 08/15/23 13:57 Hgb 11.00 g/dL (11.27-16.99) L 08/15/23 13:57 Hct 37.4 % (37-53) 08/15/23 13:57 MCV 78.4 fl (82-101) L 08/15/23 13:57 MCH 23.1 pg (27-33) L 08/15/23 13:57 MCHC 29.4 g/dL (30-55) L 08/15/23 13:57 RDW 17.9 % (12.1-15.1) H 08/15/23 13:57 Plt Count 567 10^3/cmm (157-399) H 08/15/23 13:57 MPV 8.2 fL (7.4-10.4) 08/15/23 13:57 Neut % (Auto) 81.4 % 08/15/23 13:57 Lymph % (Auto) 9.3 % 08/15/23 13:57 [place] % (Auto) 8.3 % 08/15/23 13:57 Eos % (Auto) 0.2 % 08/15/23 13:57 Baso % (Auto) 0.2 % 08/15/23 13:57 Neut # (Auto) 15.28 10^3/uL (1.8-7.7) H 08/15/23 13:57 Lymph # (Auto) 1.8 10^3/uL (0.8-4.8) 08/15/23 13:57 [place] # (Auto) 1.6 10^3/uL (0.2-0.9) H 08/15/23 13:57 Eos # (Auto) 0.0 10^3/uL (0.0-0.8) 08/15/23 13:57 Baso # (Auto) 0.0 10^3/uL (0.0-0.1) 08/15/23 13:57 Nucleated RBC % (auto) 0 % 08/15/23 13:57 Nucleated RBCs # 0.0 /100WBC 08/15/23 13:57 PT 16.00 SECONDS (12.1-14.9) H 08/15/23 13:57 INR 1.24 (0.8-1.2) H 08/15/23 13:57 APTT 38.4 SECONDS (23.9-36.7) H 08/15/23 13:57 D-Dimer 5.54 ug/mLFEU (0-0.59) H 08/15/23 13:57 Sodium 135 mmol/L (136-145) L 08/15/23 13:57 Potassium 4.3 mmol/L (3.5-5.1) 08/15/23 13:57 Chloride 93 mmol/L (98-107) L 08/15/23 13:57 Carbon Dioxide 29 mmol/L (22-29) 08/15/23 13:57 Anion Gap 17.3 (5-19) 08/15/23 13:57 BUN 5 mg/dL (6-20) L 08/15/23 13:57 Creatinine 0.4 mg/dL (0.7-1.2) L 08/15/23 13:57 GFR Calculation 264.3 mL/min (90-130) H 08/15/23 13:57 Glucose 93 mg/dL (65-115) 08/15/23 13:57 Calculated Osmolality 277 mOsm/kg (285-295) L 08/15/23 13:57 Calcium 8.5 mg/dL (8.5-10.5) 08/15/23 13:57 Magnesium 2.1 mg/dL (1.7-2.3) 08/15/23 13:57 Total Bilirubin 0.3 mg/dL (0.15-1.2) 08/15/23 13:57 AST 22 U/L (0-40) 08/15/23 13:57 ALT 20 U/L (0-41) 08/15/23 13:57 Alkaline Phosphatase 107 U/L (40-130) 08/15/23 13:57 Troponin T Baseline 9 ng/L (0-15) 08/15/23 13:57 Troponin T 120 Minute 8.34 ng/L (0-15) 08/15/23 15:55 Delta Troponin T -0.66 ABS# (0-10) L 08/15/23 15:55 NT-Pro-B Natriuret Pep 123 pg/mL (0-125) 08/15/23 13:57 Total Protein 6.3 g/dL (6.6-8.7) L 08/15/23 13:57 Albumin 3.0 g/dL (3.5-5.2) L 08/15/23 13:57 Globulin 3.3 g/dL (1.3-4.6) 08/15/23 13:57 All radiology interpretation(s) finalized by discharge EKG Data EKG 1: Interpretation: Twelve-lead EKG obtained at 1620 reviewed at 1622 demonstrates sinus tachycardia with a ventricular rate of 120, DE interval 142, QRS duration 79, QT 313, QTc 384 at present there is no ST elevation or depression to demonstrate acute ischemia or infarction. Discharge Plan Discharge Patient Disposition: Home Clinical Impression: Bilateral edema of lower extremity, Acute dyspnea Condition: Stable Prescriptions: New Lasix 20 mg tablet 20 mg PO DAILY Qty: 7 0RF No Action acetaminophen 500 mg capsule 500 mg PO Q6H PRN (Reason: Pain) albuterol sulfate [Ventolin HFA] 90 mcg/actuation HFA aerosol inhaler 2 puff inhalation QID Qty: 6.7 0RF clarithromycin 500 mg tablet 500 mg PO BID Qty: 30 0RF benzonatate 200 mg capsule 200 mg PO TID Qty: 90 0RF oxycodone 10 mg tablet 10 - 20 mg PO Q4H PRN (Reason: pain) pantoprazole 40 mg tablet,delayed release (DR/EC) 40 mg PO BID PRN (Reason: Acid Reflux) ondansetron 4 mg tablet,disintegrating 4 mg PO Q6H PRN (Reason: NAUSEA/VOMITING) Discharge Orders: Discharge ED (Routine); Ordered 08/15/23 Ordered By: Rohan Bass Referrals: Enrrique Fuller MD [Primary Care Provider] - Discharge Diet: Low Salt Discharge Activity: Resume usual activity Patient Instructions: Opioid Safety, Pain Management Activity Restrictions/Additional Instructions: Activity Restrictions/Additional Instructions: Thank you for choosing [facility] for your healthcare needs today. Please realize that you were seen in the Emergency Department and that we are providing you with an emergency medical screening exam and this may not be a complete and all inclusive of all the testing and or medical work-up that you may need to determine your ailment or severity of your illness. It is very important that you follow-up as instructed with your Primary care provider or Specialist for additional evaluation and to discuss your medical treatment plan. You may return to the Emergency Department should you have concerns or if your condition changes or worsens in any way. Coding Level of Care Code ED Supervisor Reclamation for Bekah Sahu
--- NOTE | 2023-08-15 16:25 | CTR_ITS ---
PROCEDURE INFORMATION: Exam: CTA Chest With Contrast Exam date and time: 08/15/2023 4:47 PM Age: 22 years old Clinical indication: Dyspnea; Additional info: Dyspnea/edema to le TECHNIQUE: Imaging protocol: Computed tomographic angiography of the chest with contrast. Exam focused on the arteries. 3D rendering (Not supervised by radiologist): MIP and/or 3D reconstructed images were created by the technologist. Radiation optimization: All CT scans at this facility use at least one of these dose optimization techniques: automated exposure control; mA and/or kV adjustment per patient size (includes targeted exams where dose is matched to clinical indication); or iterative reconstruction. Contrast material: OMNI 350; Contrast volume: 100 ml; Contrast route: INTRAVENOUS (IV); COMPARISON: CT angio chest PE protcl [id number] 08/08/2023 8:48 AM RADIATION DOSE METRICS: Total DLP (mGy-cm): 1123 FINDINGS: Pulmonary arteries: Normal. No pulmonary emboli. Aorta: Unremarkable. No aortic aneurysm. No aortic dissection. Lungs: Numerous pulmonary nodules are noted bilaterally. Pleural spaces: Moderate right-sided pleural effusion noted. Heart: Unremarkable. No cardiomegaly. No pericardial effusion. Lymph nodes: There are massively enlarged lymph nodes throughout both axillary regions as well as the mediastinum and both lux. Enlarged lymph nodes are noted in the periaortic space of the upper abdomen. Bones/joints: Unremarkable. No acute fracture. Soft tissues: Unremarkable. CT/CT angio chest PE protcl [id number] IMPRESSION: I see no significant knife changer the past week. Extensive metastatic tumor again noted along with a moderate right pleural effusion.
[2023-08-15 16:49] LABS: Troponin 5 2HR 8.34 ng/L (0-15)
[2023-08-15 16:50] LABS: Troponin 5 2HR Delta -0.66 ABS# (0-10)
== END 2023-08-15 18:19 | disposition home or self-care (01) ==
PROVIDERS: Emergency Provider Internal Medicine; PCP Family Medicine Adult Medicine
DX: R60.0 Localized edema (principal); R06.00 Dyspnea, unspecified; Z87.891 Personal history of nicotine dependence
CPT/HCPCS: 36415; 71275; 80053; 83735; 83880; 84484; 85025; 85378; 85610; 85730; 93005; 93970; 99285; Q9967

== ENCOUNTER 2023-08-16 07:45 | Outpatient (CLI) | payer OTHER, SELFPAY ==
--- NOTE | 2023-08-16 08:00 | PETR_ITS ---
PROCEDURE INFORMATION: Exam: PET/CT Skull Base to Mid-thigh Exam date and time: 08/16/2023 9:26 AM Age: 22 years old Clinical indication: Initial staging of Hodgkin lymphoma with involvement of the lungs. LABS AND CLINICAL REPORTS: Glucose: 113 mg/dl Treatment strategy for malignancy (PET staging): Initial Staging (PI) TECHNIQUE: Imaging protocol: Following at least four-hour fasting and following the injection of radiopharmaceutical, low dose CT images were obtained. Then, PET images were obtained. Attenuation corrected images were constructed using the CT scan. Fused images of PET and CT were reviewed. The standardized uptake values (SUV) reported below are maximum values within a region of interest, expressed in gm/ml. Exam includes orbital meatal line to mid-thigh. Radiopharmaceutical: 13.11 mCi F-18 FDG (Fluorodeoxyglucose), IV. Time of imaging post radiopharmaceutical administration: 1 hour Injection site: Left antecubital vein COMPARISON: CT angio chest PE protcl [id number] 08/15/2023 4:47 PM FINDINGS: Brain: Visualized brain has normal physiologic uptake. Pharynx: No abnormal uptake. Larynx: No abnormal uptake. Lungs, pleura and trachea: Innumerable lung nodules with the highest uptake of 3.7 SUV are suggestive of lung involvement by lymphoma. There is associated diffuse thickening of the secondary pulmonary lobules in the bilateral upper lobes on the right more than on the left suggestive of lymphangitic lymphomatosis. Significant partial consolidation in the right middle lobe with air bronchogram. There is [id number] right pleural effusion (maximal thickness of 4 cm) and a trace amount of left pleural effusion with no abnormal uptake in the pleura. Heart: Normal physiologic uptake. There is no cardiomegaly. There is minimal pericardial effusion. No abnormal uptake within the pericardium. Mediastinal space: No abnormal uptake. Liver: No abnormal uptake. Maximum uptake of 2 SUV. Gallbladder and bile ducts: No abnormal uptake. No calcified gallstones. Pancreas: No abnormal uptake. Spleen: Mildly diffusely increased uptake of 2.8 SUV slightly increased in comparison with normal uptake in the liver suspicious for lymphomatous involvement. The spleen is mildly enlarged measuring 13.6 cm in the oblique craniocaudal span.. Adrenal glands: No abnormal uptake. No nodules. Kidneys and ureters: Normal physiologic uptake. No hydronephrosis. 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 Stomach and bowel: No abnormal uptake. Intraperitoneal and retroperitoneal spaces: No abnormal uptake. No ascites. Bladder: Normal physiologic uptake. Reproductive: No abnormal uptake. Vasculature: No abnormal uptake. No aortic aneurysm. Lymph nodes: There is multicompartmental lymphadenopathy in bilateral neck more bulky on the right side particularly in the supraclavicular area (10.1 SUV on the left side 7.8 SUV on the left side), in both axillas more bulky on the left (7.9 SUV on the left side, 5.3 SUV on the right side), in the mediastinum (9.8 SUV in the paratracheal area, 9.5 SUV in the subcarinal nodes, 8.3 SUV in the posterior mediastinum), in bilateral lux (9.7 SUV on the right side, in the in the right internal mammary chain (6.4 SUV), 7.3 SUV on the left side), along the diaphragm (4.7 SUV), in the retroperitoneum (7.4 SUV above the level of renal vessels, 9.9 SUV below the level of renal vessels). Mildly enlarged bilateral common iliac lymph nodes measure up to 6.2 SUV. Mildly enlarged 1.9 x 1.2 cm right mesenteric lymph node on axial image 194 measures 3.1 SUV. Borderline in size left external iliac lymph nodes with a short axis of 0.9 cm shows low-grade uptake of 1.3 SUV. Bones/joints: No abnormal uptake in the visualized axial and appendicular skeleton. Soft tissues: No abnormal uptake in the visualized head, neck, chest, abdomen, pelvis, and extremities. There is soft tissue edema in the left axilla, left anterior chest wall, in the back, gluteal areas and proximal thighs. PET/PET [facility] INITIAL [id number] IMPRESSION: Multicompartmental lymphadenopathy in the neck, axillas, chest and the retroperitoneum in keeping with known lymphomatous involvement with the highest uptake of 10.1 SUV in the left neck. A few small mildly enlarged and mildly FDG avid mesenteric and pelvic lymph nodes. Mild splenomegaly with mildly diffusely increased uptake of 2.8 SUV suggestive of lymphomatous involvement of the spleen. Extensive diffuse bilateral lymphomatous involvement of the lungs within numerable lung nodules measuring up to 3.7 SUV and thickening of the secondary pulmonary lobules indicating lymphangitic lymphomatosis. [id number] right pleural effusion, trace amount left pleural effusion, minimal pericardial effusion with no abnormal uptake within the pleura or pericardium.
== END 2023-08-16 07:46 | disposition home or self-care (01) ==
PROVIDERS: PCP Family Medicine Adult Medicine; Visit Provider Internal Medicine Medical Oncology
DX: C81.99 Hodgkin lymphoma, unspecified, extranodal and solid organ sites (principal); R93.89 Abnormal findings on diagnostic imaging of other specified body structures; R16.1 Splenomegaly, not elsewhere classified; J90 Pleural effusion, not elsewhere classified
CPT/HCPCS: 78815; A9552

== ENCOUNTER 2023-08-23 11:24 | Day surgery (SDC) | payer OTHER, SELFPAY ==
[2023-08-23] VITALS (9 sets, daily range): BP systolic 134–151; BP diastolic 83–101; PULSE 119–124; RESP 16–20; TEMP 36.4–36.8; O2SAT 86–97; BMI 34.4
--- NOTE | 2023-08-23 11:35 | XR_ITS ---
WS: [id number] Exam: XR chest 1V portable [id number] Date/Time of Exam: 08/23/2023 1:46 PM Reason For Exam: Postop Mediport placement No previous exams. Extensive nodular appearing infiltrates throughout both lungs. Dense area of consolidation in the mid dle and upper lobes of the RIGHT lung. The heart is slightly enlarged. Probable small bibasal pleural effusions. A LEFT subclavian port appears to in near the cavoatrial junction. No pneumothorax. Bony structures are intact. IMPRESSION: 1. Left-sided Port-A-Cath ending at the cavoatrial junction. 2. Extensive nodular appearing infiltrates throughout both lungs. Consolidating infiltrate in the mid dle and upper lobes of the RIGHT lung.
--- NOTE | 2023-08-23 11:35 | SC_ITS ---
WS: [id number] Exam: C-arm FL for CVA [id number] Date/Time of Exam: 08/23/2023 11:35 AM Reason For Exam: Mediport placement Single AP C-arm image of the upper LEFT chest submitted for evaluation. The image depicts a LEFT subc lavian port in place with the tip difficult to identify on this limited study. No obvious pneumothora x. Numerous nodules identified in the visualized LEFT lung.
--- NOTE | 2023-08-23 11:40 | W.PM.OPSUD ---
Surgery/Procedure H&P Update DATE OF PROCEDURE: August 23, 2023 DATE H&P PERFORMED: 08/18/23 H&P UPDATE INFORMATION: I have reviewed H&P completed within last 30 days, I have examined patient prior to procedure and No changes to prior documentation PLANNED PROCEDURE: Operation Date: 08/23/23 12:55 Proposed Procedures p [id number] port placement R59.0,R22.32,C81.90(Not Applicable) - Jared Natarajan,
--- NOTE | 2023-08-23 12:18 | P.ANESASSM_ITS ---
Pre-Anesthetic Assessment Height/Weight: Height 1.8 m Weight 112.037 kg Temp Pulse Resp BP Pulse Ox O2 Del Method O2 Flow Rate 97.6 F 120 H 16 151/92 90 Nasal Cannula 4 08/23/23 11:51 08/23/23 11:51 08/23/23 11:51 08/23/23 11:51 08/23/23 12:14 08/23/23 12:14 08/23/23 12:14 Operation Date: 08/23/23 12:55 Proposed Procedures p [id number] port placement R59.0,R22.32,C81.90(Not Applicable) - Jared Natarajan, DO Was Beta Ronnie taken within 24 hours: N/A Was Clonidine taken within 24 hours: N/A Last intake: Intake Last Liquid Date 08/22/23 Last Liquid Time 23:30 Last Solid Date 08/22/23 Last Solid Time 23:30 Social No tobacco Exam alert and oriented x 3 Airway Submandibular: within normal limits Cervical ROM: within normal limits Mallampati: Class I History/ROS No significant history except as noted and No significant complaints Pulmonary Shortness of Breath Hodgkins lymphoma with METS to lung; O2 @ 3 Lpm x 17/01 Anesthetic Plan ASA status: 3 Anesthesia: General and MAC Risk of > 500 ml blood loss (7ml/kg in children): No Medications/Allergies Home Medications Medication Instructions Recorded Confirmed Last Taken Type albuterol sulfate 90 mcg/actuation 2 puff inhalation QID #6.7 grams 04/25/23 08/23/23 08/19/23 Rx aerosol inhaler (Ventolin HFA) acetaminophen 500 mg capsule 500 mg PO Q6H PRN Pain 08/11/23 08/23/23 3 Weeks Ago History ~08/02/23 benzonatate 200 mg capsule 200 mg PO TID #90 caps 08/11/23 08/23/23 08/22/23 Rx ondansetron 4 mg disintegrating 4 mg PO Q6H PRN NAUSEA/VOMITING 08/15/23 08/23/23 2 Weeks Ago History tablet ~08/09/23 oxycodone 10 mg tablet 10 mg PO Q4H PRN pain 30 days #120 08/17/23 08/23/23 08/23/23 Rx tabs Allergies Allergy/AdvReac Type Severity Reaction Status Date / Time No Known Allergies Allergy Verified 08/23/23 11:50 [facility] Anesthesia Medical History Metastasis to lung Mass of left axilla Bronchitis Chronic coughing Neutrophilic leukocytosis Hepatosplenomegaly Abnormal abdominal ultrasound Excessive weight loss Allergic rhinitis due to allergen Obesity (BMI 30-39.9) Anxiety and depression GERD (gastroesophageal reflux disease) No pertinent past medical history Surgical History No pertinent past surgical history Family History Father Stroke Hypertension Mother Thyroid disease Social History Smoking and tobacco/nicotine status: former use of tobacco/nicotine Quit status (tobacco/nicotine): has quit using Year quit tobacco: 2021 Former quit date comment: 2 years vaping Alcohol intake: never Substance/Drug Use: never Data Anesthesia Cardiac Studies: No Data to Display
[2023-08-23] MEDS: sodium chloride 0.9% 1,000 ML 30 ML IV (12:29)
[2023-08-23] MEDS: midazolam 1 mg/mL INJ 2 mL 2 MG IVP (12:30)
[2023-08-23] MEDS: albuterol 2.5 mg/3 mL Neb INHALATION (12:35)
[2023-08-23] MEDS: ipratropium 0.5 mg/2.5 mL Neb INHALATION (12:35)
[2023-08-23] MEDS: ceFAZolin 2,000 MG in sodium chloride 0.9% (plus) 50 ML 100 MG IV (12:54)
[2023-08-23] MEDS: lidocaine-epi 2% PF 1:200,000 20 mL SDV XX (13:17)
[2023-08-23] MEDS: heparin, porcine 1,000 unit/mL INJ 10 mL 10000 UNIT IRRIGATION (13:17)
--- NOTE | 2023-08-23 14:18 | SUR.PHASEII ---
pt is to be sent home with simple mask for pt to utilize during episodes where a higher dose of O2 is needed than what has be initially prescribed pt sat at 94 to 95 on 8L with simple mask during phase 2 recovery these recommendations were given to the family by Dr. Rosa from anesthesia pt family educated on having discussion with pt care team about increasing the amount of O2 the patient is currently receiving
[2023-08-23] MEDS: oxyCODONE 5 mg IR Tab/Cap 10 MG PO (14:23)
--- NOTE | 2023-08-23 15:57 | PM.OP ---
Operative Report Date of procedure: September 01, 2023 Pre-op diagnosis: Hodgkin's lymphoma Post-op diagnosis: same Procedure done: Mediport placement Implants: PowerPort Specimens removed/disposition: None Surgeon: Jared Natarajan DO Anesthesia: MAC and Local Estimated blood loss (mL): 5 Complications: None apparent Brief History: Is a very pleasant 22-year-old gentleman with Hodgkin's lymphoma. Chemotherapy access was required. Mediport placement was indicated. The risk and benefits were explained and documented. Procedure: They put another order I will do right now things the patient was taken to the operating room and placed supine on the operating room table. All bony prominences were padded. She was given IV sedation and monitored throughout the case by the anesthesia personnel. SCDs were placed and turned on. The arms were tucked to the side. Patient received Ancef 2 g preoperatively IV. The bilateral chest wall was prepped and draped in usual sterile fashion using chlorhexidine base prep. Sterile drapes were applied. We did procedure pause prior to beginning. An 18 gauge needle was placed in the left subclavian vein. Dark, nonpulsatile blood was aspirated. A guidewire was placed through the needle centrally toward the atrial/vena caval junction. Fluoroscopy visualized good placement. The needle was removed and the guidewire was clipped to the drape with a hemostat. Further local anesthetic was infiltrated in the soft tissues of the left chest wall and a #15 blade was used to make a horizontal skin incision. A subcutaneous Mediport pocket was created using Bovie cautery, dissecting down through the skin and subcutaneous tissues. Meticulous hemostasis was achieved. The Mediport was sutured in position using 3-0 vicryl suture x2 stitches. A #15 blade was used to make a small skin may around the guidewire insertion area. The Mediport tubing was tunneled through the subcutaneous tissues up to the needle insertion location. A dilator with a peel-away sheath was placed over the guidewire and placed centrally. After measuring the Mediport tubing was cut to length so that the tip would end at the atrial/vena caval junction. The inner cannula and the guidewire were removed, leaving the dilator sheath in place. The Mediport was flushed. The tip of the catheter was inserted through the peel-away sheath and the peel-away sheath removed in the standard fashion. The Mediport was accessed with a straight [place] needle and dark, nonpulsatile blood was aspirated and flushed using heparinized saline to hep-lock the Mediport. Final fluoroscopy visualization showed no kink in the catheter and the tip of the Mediport tubing near the atrial/vena caval junction. Both skin incisions were thoroughly irrigated and suctioned dry. Meticulous hemostasis noted. The dermis was approximated with 3-0 Vicryl in an interrupted fashion. Skin was closed with Dermabond. Patient was awakened from anesthesia and transferred via her cart to the recovery room in stable condition. All needle, sponge, and instrument counts were correct per the operating personnel x2 counts.
--- NOTE | 2023-08-23 16:33 | ANE.PACU2 ---
Inpatient post-anesthesia follow up: Airway intact: Yes Vital signs: Temperature 98.3 F Pulse Rate 119 Respiratory Rate 20 Blood Pressure 148/93 Pulse Oximetry 96 Oxygen Delivery Me thod Simple Mask Oxygen Flow Rate 8 Fraction of Inspir ed Oxygen Hydration adequate: Yes Nausea and vomiting: No Pain level: 1 Mental status: Baseline
== END 2023-08-23 14:45 | disposition home or self-care (01) ==
PROVIDERS: PCP Family Medicine Adult Medicine; Visit Provider Surgery
PROC: (CPT 36561; principal; 2023-08-23 12:35)
DX: C81.90 Hodgkin lymphoma, unspecified, unspecified site (principal); C78.00 Secondary malignant neoplasm of unspecified lung; Z99.81 Dependence on supplemental oxygen; E66.9 Obesity, unspecified; Z68.34 Body mass index [BMI] 34.0-34.9, adult; K21.9 Gastro-esophageal reflux disease without esophagitis; Z87.891 Personal history of nicotine dependence; R59.0 Localized enlarged lymph nodes
CPT/HCPCS: 36561; 71045; 77001; 94640; C1788; J0690; J1644; J2250; J2704; J3490; J7030; J7613; J7644

== ENCOUNTER 2023-08-24 14:15 | Outpatient (CLI) | payer OTHER, SELFPAY ==
--- NOTE | 2023-08-24 14:30 | USCV_ITS ---
Larry Naeem Age: 22 Gender: M : 2000 Exam Date: 08/24/2023 13:53 Ordering Phys: Walt Baldwin MD Technologist: CT Exam Location: [facility] [place] Indication: CA pt., sob BP: 139 / 86 HR: Rhythm: Sinus Technical Quality: Adequate MEASUREMENTS (Male / Female) Normal Values 2D ECHO LVOT Diameter 2.1 cm LV Ejection Fraction MOD 2C 73.7 % LV Ejection Fraction 2C AL 0.0 % LA Diameter 3.1 cm Aorta at Sinotubular Diameter 2.6 cm IVC Diameter 1.9 cm M-MODE LA Ao Ratio MM 1.1 AV Cusp Separation MM 2.7 cm DOPPLER AV Peak Velocity 186.0 cm/s LVOT Peak Velocity 196.0 cm/s AV Area Cont Eq vti 3.9 cm squared AV Area Cont Eq pk 3.6 cm squared MV Area PHT 5.6 cm squared Mitral E to A Ratio 0.9 TR Peak Velocity 99.0 cm/s TR Peak Gradient 3.9 mmHg TV Peak E Velocity 69.0 cm/s Right Atrial Pressure 3.0 mmHg Pulmonary Artery Systolic Pressu 6.9 mmHg PV Peak Velocity 150.0 cm/s FINDINGS Left Ventricle Normal left ventricular size and systolic function, EF 74%. No gross wall motion normalities. Right Ventricle The right ventricle is normal in size and function. Right Atrium The right atrium is normal in size. Left Atrium The left atrium is normal in size. Mitral Valve Mild mitral valve regurgitation. Aortic Valve No gross abnormalities noted . Tricuspid Valve No gross abnormalities noted Pulmonic Valve No gross abnormalities noted Pericardium Trivial to small pericardial effusion. Aorta Normal ascending aorta dimension. IVC Normal inferior vena cava. CONCLUSIONS Normal left ventricular size and systolic function, EF 74%. No gross wall motion normalities. Normal chamber sizes Trace to small pericardial effusion No intracardiac masses Dr Larry Gramajo MD FACC (Electronically Signed) Final Date: 24 August 2023 20:21 S
== END 2023-08-24 14:16 | disposition home or self-care (01) ==
LOC: RAD 14:15
PROVIDERS: PCP Family Medicine Adult Medicine; Visit Provider Internal Medicine Medical Oncology
DX: I31.39 Other pericardial effusion (noninflammatory) (principal); C78.00 Secondary malignant neoplasm of unspecified lung; C81.90 Hodgkin lymphoma, unspecified, unspecified site; Z79.899 Other long term (current) drug therapy
CPT/HCPCS: 93306

== ENCOUNTER 2023-08-29 09:17 | Oncology outpatient (recurring) (ONCR) | payer OTHER, SELFPAY ==
[2023-08-29 10:08] LABS: Basophils # 0.1 10^3/uL (0.0-0.1); Basophils % 0.2 %; Eosinophils # 0.1 10^3/uL (0.0-0.8); Eosinophils % 0.4 %; Hematocrit 37.9 % (37-53); Lymphocytes # 2.8 10^3/uL (0.8-4.8); Lymphocytes % 12.5 %; Mean Corpuscular HGB Conc 28.2 g/dL (30-55); Mean Corpuscular Hemoglobin 23.3 pg (27-33); Mean Corpuscular Volume 82.4 fl (82-101); Mean Platelet Volume 8.3 fL (7.4-10.4); Monocytes # 1.9 10^3/uL (0.2-0.9); Monocytes % 8.5 %; Neutrophils # 17.22 10^3/uL (1.8-7.7); Neutrophils % 77.9 %; Nucleated Red Blood Cells % 0 %; Platelet Count 385 10^3/cmm (157-399); White Blood Count 22.11 10^3/uL (3.29-11.43)
[2023-08-29 10:22] VITALS: BP 152/90; PULSE 127; RESP 20; TEMP 36.6; O2SAT 92
[2023-08-29 10:46] LABS: Alanine Aminotransferase 18 U/L (0-41); Albumin Level 2.9 g/dL (3.5-5.2); Alkaline Phosphatase 106 U/L (40-130); Anion Gap 9.6 (5-19); Aspartate Amino Transferase 17 U/L (0-40); Blood Urea Nitrogen 8 mg/dL (6-20); Calcium 8.7 mg/dL (8.5-10.5); Chloride 92 mmol/L (98-107); Globulin 3.9 g/dL (1.3-4.6); Glomerular Filtration Rate 264.3 mL/min (90-130); Glucose 123 mg/dL (65-115); Lactate Dehydrogenase 231 U/L (135-225); Osmolality Calculated 286 mOsm/kg (285-295); Potassium 4.6 mmol/L (3.5-5.1); Sodium 138 mmol/L (136-145); Thyroid Stimulating Hormone 1.09 uIU/mL (0.27-4.20); Total Bilirubin 0.2 mg/dL (0.15-1.2); Total Protein 6.8 g/dL (6.6-8.7)
[2023-08-29 10:54] LABS: Carbon Dioxide 41 mmol/L (22-29)
[2023-08-29] MEDS: acetaminophen 325 mg Tablet 650 MG PO (12:27)
[2023-08-29] MEDS: OLANZapine 5 mg TABLET PO (12:27)
[2023-08-29] MEDS: sodium chloride 0.9% 250 ML 75 ML IV (12:27)
[2023-08-29] MEDS: famotidine 20 mg/2 mL INJ IVP (12:28)
[2023-08-29] MEDS: diphenhydrAMINE 50 mg/mL SDV 1mL 25 MG IVP (12:34)
[2023-08-29] MEDS: palonosetron 0.25 mg/5 mL SDV IVP (12:35)
[2023-08-29] MEDS: fosaprepitant 150 MG in sodium chloride 0.9% 150 ML 300 MG IV (12:57)
[2023-08-29 13:28] VITALS: BMI 34.2
[2023-08-29 13:50] VITALS: BP 152/94; PULSE 132; RESP 20; TEMP 36.1; O2SAT 76
--- NOTE | 2023-08-29 14:06 | PC.NURSE ---
Addendum entered by Tiny Rodriguez RN 08/29/23 14:14: 1350 Original Note: 1050 Patient pale diaphoretic 76% on 4L NC HR 132 O2 turned up to 10L Breathing treatment given per RN. MD notified of change in condition. Orders for breathing treatment and hold chemo until condition improves. Orders implemented. Very lethargic. Unable to answer questions. Will nod head at times. Monitored continually.
[2023-08-29] MEDS: ipratropium-albuterol 3 mL Neb INHALATION (14:15)
[2023-08-29] MEDS: nivolumab 480 MG in sodium chloride 0.9% 250 ML 596 MG IV (14:47)
[2023-08-29] MEDS: DOXOrubicin 2 mg/ml MDV 58 MG IVP (15:41)
[2023-08-29] MEDS: VINBLASTINE IV (15:56)
[2023-08-29] MEDS: SODIUM CHLORIDE 0.9% IV ×2 (15:56→16:15)
[2023-08-29 16:00] VITALS: BP 144/82; PULSE 128; RESP 24; TEMP 36.6; O2SAT 97
[2023-08-29] MEDS: DACARBAZINE IV (16:15)
[2023-08-29 16:33] VITALS: BP 142/81; PULSE 128; RESP 24; TEMP 36.1; O2SAT 91
[2023-08-29 17:55] VITALS: BP 144/90; PULSE 126; RESP 24; TEMP 36.1; O2SAT 91
== END 2023-08-29 23:59 | disposition home or self-care (01) ==
PROVIDERS: Internal Medicine Medical Oncology; PCP Family Medicine Adult Medicine; Visit Provider Family Medicine Adult Medicine
DX: C78.00 Secondary malignant neoplasm of unspecified lung; C80.1 Malignant (primary) neoplasm, unspecified; Z51.11 Encounter for antineoplastic chemotherapy; Z51.12 Encounter for antineoplastic immunotherapy
CPT/HCPCS: 80053; 83615; 84443; 85025; 96365; 96367; 96374; 96375; 96409; 96413; 96417; A4222; J1100; J1200; J1453; J2469; J3490; J7040; J7050; J9000; J9130; J9299; J9360

== ENCOUNTER 2023-08-29 17:13 | Inpatient (IN) | payer OTHER, SELFPAY ==
[2023-08-29] VITALS (19 sets, daily range): BP systolic 116–177; BP diastolic 66–101; PULSE 87–121; RESP 19–25; TEMP 36.7; O2SAT 91–100; BMI 35.3
--- NOTE | 2023-08-29 18:11 | P.HP_ITS ---
Providers/Chief Complaint 2 Admitting Physician: Evelyn Martinez MD Primary Care Provider: Enrrique Fuller MD Chief Complaint: Hypoxia,lethargic History of Present Illness Naeem Juarez is a 22 year old male who has a diagnosis of nodular sclerosing Hodgkin's lymphoma went to Dr. Baldwin clinic to start for session of chemotherapy today, as per the family patient has been experiencing disturbed sleeping pattern, frequently naps, shortness of breath for last 1 week, he will experience significant night sweats, he would use a fan in his room, did not complain of any chest pain, recently had a PET scan and echo which is showing metastatic lesion to lungs, pelvic lymph nodes, there is mild splenomegaly lymphangitic lymphomatosis of lung respiratory effusion. As per the family when Naeem walked in the clinic he started experiencing shortness of breath with profuse sweating, he was very drowsy however will be redirectable, this happened before chemotherapy was started, however chemotherapy took 3 hours then he was sent to the hospital as a direct admit for evaluation of his symptoms. On arrival patient is extremely groggy, he is verbally redirectable, he opens eyes to verbal commands, gives me a thumbs up and then goes back to sleep stat ABG showed hypoxic hypercarbic respite failure with put him on AVAPS with tidal volume 550, plan was made to immediately transfer him to ICU from [facility] Our goal is to stabilize him before starting the investigation Considering the fact he is responsive to verbal commands and following simple commands(gave me a thumbs up when I asked him how he is feeling) will repeat ABG in 30 to 40 minutes in the ICU, my threshold to intubate patient stay low, I will stay in the hospital until he is stabilized before signing out to the night team at the time of dictation of this note time is 7:26 PM Family is at the bedside & in agreement As per the uncle who is at the bedside stating that he has been taking shallow breaths for last 1 week, they knew something was off he was seen in the ER twice in past few weeks he was given supply of Lasix, . Echo shows preserved ejection fraction, Chemotherapy, Adriamycin, dacarbazine, vinblastine Opdivo Patient became hypoxic following premedication Review of Systems 2 General: Reports: ROS unobtainable due to medical condition Const: Denies: fever(s) Eyes: Reports: change in vision Medications/Allergies Home Medications Medication Instructions Recorded Confirmed Last Taken Type albuterol sulfate 90 mcg/actuation 2 puff inhalation QID #6.7 grams 04/25/23 08/29/23 08/19/23 Rx aerosol inhaler (Ventolin HFA) acetaminophen 500 mg capsule 500 mg PO Q6H PRN Pain 08/11/23 08/29/23 3 Weeks Ago History ~08/02/23 benzonatate 200 mg capsule 200 mg PO TID #90 caps 08/11/23 08/29/23 08/29/23 08:00 Rx ondansetron 4 mg disintegrating 4 mg PO Q6H PRN NAUSEA/VOMITING 08/15/23 08/29/23 2 Weeks Ago History tablet ~08/09/23 oxycodone 10 mg tablet 10 mg PO Q4H PRN pain 30 days #120 08/17/23 08/29/23 08/29/23 08:00 Rx tabs ondansetron HCl 4 mg tablet 4 mg PO QID PRN Nausea/vomiting 08/26/23 08/29/23 Unknown Rx #30 tabs prochlorperazine maleate 10 mg 10 mg PO Q4H PRN Mild Nausea #30 08/26/23 08/29/23 Unknown Rx tablet (Compazine) tabs allopurinol 300 mg tablet 300 mg PO DAILY #30 tabs 08/29/23 08/29/23 08/29/23 Rx 0800 lidocaine-prilocaine 2.5 %-2.5 % 1 applic topical .COMPLEX #30 grams 08/29/23 08/29/23 Unknown Rx topical cream lorazepam 1 mg tablet 0.5 - 1 mg (0.5 - 1 x 1 mg) PO Q6H 08/29/23 08/29/23 Unknown Rx PRN Severe Nausea #30 tabs Allergies Allergy/AdvReac Type Severity Reaction Status Date / Time No Known Allergies Allergy Verified 08/29/23 10:48 PFSH Acute 2 PFSH: Medical History (Updated 08/29/23 @ 19:29 by Evelyn Martinez MD) Nodular sclerosis Hodgkin lymphoma, unspecified site Metastasis to lung Mass of left axilla Bronchitis Chronic coughing Neutrophilic leukocytosis Hepatosplenomegaly Abnormal abdominal ultrasound Excessive weight loss Last 110 pounds in last 6 to 8 weeks Allergic rhinitis due to allergen Obesity (BMI 30-39.9) Anxiety and depression GERD (gastroesophageal reflux disease) No pertinent past medical history Surgical History No pertinent past surgical history Family History Father Stroke Hypertension Mother Thyroid disease Social History Smoking and tobacco/nicotine status: former use of tobacco/nicotine Quit status (tobacco/nicotine): has quit using Year quit tobacco: 2021 Former quit date comment: 2 years vaping Alcohol intake: never Substance/Drug Use: never Physical Exam 2 Narrative: Patient is very drowsy Able to follow simple commands Morbidly obese Visible lymph nodes cervical chain Splenomegaly Distended abdomen Nontender Patient gave me a thumbs up when asked him how he is doing today Family at the bedside S1, S2 sinus tachycardia Transition from 10 L nasal cannula to AVAPS Lower extremity edema Data 08/29/23 18:31 A&P Assessment and plan (1) Obesity (BMI 30-39.9): (2) Excessive weight loss: (3) GERD (gastroesophageal reflux disease): Qualifiers: Esophagitis presence: without esophagitis Qualified Code(s): K21.9 - Gastro-esophageal reflux disease without esophagitis (4) Neutrophilic leukocytosis: (5) Metastasis to lung: (6) Chronic coughing: (7) Bronchitis: (8) Mass of left axilla: (9) Nodular sclerosis Hodgkin lymphoma, unspecified site: (10) Acute hypoxic on chronic hypercapnic respiratory failure: (11) Lymphedema: Plan Acute hypoxic hypercarbic respite failure pCO2 is 121 Patient is responding to simple verbal commands Able to open eyes on verbal command We did not use noxious stimuli to get a response He protruded his tongue when I asked him to show his teeth and tongue Currently we are using AVAPS Transfer him to ICU Repeat ABG in 30 to 40 minutes Threshold to intubate him to stay low for airway protection Because of hyperventilation seems to be medication with underlying pulmonary pathology with lymphoma with mets Will request CTA chest CT head CT abdomen pelvis without contrast Diastolic preserved ejection fraction heart failure exacerbation Will give him [id number] IV Lasix Lymphedema related to significant pelvic lymphadenopathy He is wearing compression stocking Significant weight loss in the recent few months related to lymphoma Significant diaphoresis, Asterixis positive Related to hypercapnic respite failure Will request serial troponin EKG No need to repeat echo as it was done recently For prevention of tumor lysis syndrome I will put him on Decadron and allopurinol Avoid Ativan or opioids Transfer to ICU Full code N.p.o. Review of records reviewed patient received chemotherapy today, PET scan showed significant mets to spleen, pelvic lymph nodes and lungs Patient not able provide history, uncle at the bedside and mother providing history Attestations 2 Medical Necessity Statement*: More than 2 midnights anticipated Coding Level of Care Code Critical Care >/= 30 minutes Critical care time (in minutes): 90 The high probability of a clinically significant, sudden or life threatening deterioration, as referenced in this documentation, required my full and direct attention, intervention and personal management. The critical care time shown is in addition to time spent performing any reported separately billable procedures and includes the following: [x] Data and vital sign review and interpretation [x ] Patient assessment, examination and intervention [x] Medication orders and management [x] Patient/Family updates as able [x] Care Coordination and Documentation. Diagnoses Obesity (BMI 30-39.9) E66.9 Excessive weight loss R63.4 Gastroesophageal reflux disease without esophagitis K21.9 Esophagitis presence: without esophagitis Neutrophilic leukocytosis D72.9 Metastasis to lung C78.00 Chronic coughing R05.3 Bronchitis J40 Mass of left axilla R22.32 Nodular sclerosis Hodgkin lymphoma, unspecified site C81.10 Acute hypoxic on chronic hypercapnic respiratory failure J96.01; J96.12 Lymphedema I89.0
--- NOTE | 2023-08-29 18:11 | CTR_ITS ---
PROCEDURE INFORMATION: Exam: CTA Chest With Contrast Exam date and time: 08/30/2023 1:11 AM Age: 22 years old Clinical indication: Other: Hypoxia, lymphoma TECHNIQUE: Imaging protocol: Computed tomographic angiography of the chest with contrast. Exam focused on the arteries. 3D rendering (Not supervised by radiologist): MIP and/or 3D reconstructed images were created by the technologist. Radiation optimization: All CT scans at this facility use at least one of these dose optimization techniques: automated exposure control; mA and/or kV adjustment per patient size (includes targeted exams where dose is matched to clinical indication); or iterative reconstruction. Contrast material: OMNI 350; Contrast volume: 100 ml; Contrast route: INTRAVENOUS (IV); COMPARISON: CT angio chest PE protcl [id number] 08/15/2023 4:47 PM RADIATION DOSE METRICS: Total DLP (mGy-cm): 1853 FINDINGS: Tubes, catheters and devices: Tunneled left-sided chest port catheter terminates in the mid SVC. Pulmonary arteries: Normal. No pulmonary emboli. Aorta: Unremarkable. No aortic aneurysm. No aortic dissection. Thyroid: Unremarkable thyroid lobes. Lungs: Innumerable diffuse pulmonary nodules are redemonstrated. Diffuse septal thickening features throughout the lungs. Increasing peribronchial opacities are noted in the right middle lobe and the lower lobes with further volume loss of the normal lung parenchyma. The bronchi are constricted in appearance with no focal obstructing endobronchial lesion seen. Pleural spaces: Large volume right pleural effusion. Small volume left pleural effusion. Heart: Unremarkable. No cardiomegaly. No pericardial effusion. Lymph nodes: Extensive bilateral supraclavicular and axillary lymphadenopathy is redemonstrated without significant change from the recent comparison. Extensive diffuse mediastinal and bilateral hilar lymphadenopathy is redemonstrated without significant change from the comparison. Bones/joints: Unremarkable. No acute fracture. Soft tissues: Unremarkable. PROCEDURE INFORMATION: Exam: CT Abdomen And Pelvis With Contrast Exam date and time: 08/30/2023 1:11 AM Age: 22 years old Clinical indication: Other: Hypoxia, lymphoma TECHNIQUE: Imaging protocol: Computed tomography of the abdomen and pelvis with contrast. Radiation optimization: All CT scans at this facility use at least one of these dose optimization techniques: automated exposure control; mA and/or kV adjustment per patient size (includes targeted exams where dose is matched to clinical indication); or iterative reconstruction. Contrast material: OMNI 350; Contrast volume: 100 ml; Contrast route: INTRAVENOUS (IV); COMPARISON: 1. PT PET skulltothigh INITIAL [id number] 08/16/2023 9:[address] ch abdpel wo/w [id number] 08/03/2023 1:36 PM RADIATION DOSE METRICS: Total DLP (mGy-cm): 1853 FINDINGS: Liver: Normal. No mass. Gallbladder and bile ducts: Normal. No calcified stones. No ductal dilation. Pancreas: Normal. No ductal dilation. Spleen: Mild severity splenomegaly. Spleen measures 15.8 cm longitudinal. Adrenal glands: Normal. No mass. Kidneys and ureters: Horseshoe kidney. The right renal moiety upper pole calices are dilated with multiple stones similar to prior. Stomach and bowel: Unremarkable. No obstruction. No mucosal thickening. Appendix: No evidence of appendicitis. Intraperitoneal space: Unremarkable. No free air. No significant fluid collection. Vasculature: Unremarkable. No abdominal aortic aneurysm. Lymph nodes: Bulky extensive upper abdominal lymphadenopathy is redemonstrated without significant interval changes. Urinary bladder: Claudio catheter in the bladder. Reproductive: Unremarkable as visualized. Bones/joints: Unremarkable. No acute fracture. Soft tissues: Body wall anasarca. CT/CT angio chest w abd pel w con IMPRESSION: Negative for pulmonary artery embolism. IMPRESSION: 1. Negative for acute abdominopelvic pathology. 2. No significant overall change in the metastatic disease.
[2023-08-29 18:42] LABS: Alveolar-Arterial Oxygen Gradi 25.9 mmHg (5-10); Base Excess ABG 8.8 mmol/L (-2.0-2.0); Blood Gas Allen Test Pos; Blood Gas Operator Identificat glc; Blood Gas Sample Site Radial, left; Blood Gas Sample Type Arterial; Carboxyhemoglobin 1.2 %THgb (0.4-20.1); HCO3 ABG 41.3 mmol/L (22-26); HGB O2 Sat 93.1 % (95-100); Ionized Calcium Level - ABG 1.3 mmol/L (1.1-1.4); Methemoglobin 0.1 % (0.4-1.5); Oxygen Device NC; Oxygen Saturation ABG 94.3; PO2 ABG 86.2 mmHg (80.0-100.0); PO2 FiO2 Ratio Arterial Blood 0; Potassium Level - ABG 4.9 mmol/L (3.5-5.0); Total Hemoglobin 11.1 g/dL (14-18)
[2023-08-29 18:44] LABS: ABG PH Result 7.14 (7.35-7.45)
[2023-08-29 19:08] LABS: NT Pro B Type Natriuretic Pept 336 pg/mL (0-125); Procalcitonin 0.15 ng/mL (0-0.5)
[2023-08-29 19:10] LABS: D Dimer 5.05 ug/mLFEU (0-0.59)
--- NOTE | 2023-08-29 19:18 | CTR_ITS ---
PROCEDURE INFORMATION: Exam: CT Head Without Contrast Exam date and time: 08/30/2023 1:04 AM Age: 22 years old Clinical indication: Altered mental status/memory loss; Additional info: AMS TECHNIQUE: Imaging protocol: Computed tomography of the head without contrast. Radiation optimization: All CT scans at this facility use at least one of these dose optimization techniques: automated exposure control; mA and/or kV adjustment per patient size (includes targeted exams where dose is matched to clinical indication); or iterative reconstruction. COMPARISON: No relevant prior studies available. RADIATION DOSE METRICS: Total DLP (mGy-cm): 1116 FINDINGS: Brain: No acute intracranial hemorrhage or mass effect. No definite acute infarct by CT. MRI would be more sensitive/specific for detection, as clinically directed. Cerebral ventricles: Ventricle size is normal for age. Paranasal sinuses: Included paranasal sinuses are essentially clear. Mastoid air cells: No significant acute finding. Bones/joints: No definite acute skull fracture. Soft tissues: No significant acute finding. CT/CT head wo con* [id number] IMPRESSION: 1. No acute intracranial hemorrhage or mass effect. 2. No definite acute infarct by CT, see above. 3. Other findings discussed above.
[2023-08-29 19:19] LABS: Blood Urea Nitrogen 10 mg/dL (6-20); Calcium 8.6 mg/dL (8.5-10.5); Carbon Dioxide 39 mmol/L (22-29); Chloride 93 mmol/L (98-107); Glomerular Filtration Rate 204.3 mL/min (90-130); Glucose 170 mg/dL (65-115); Lactate Dehydrogenase 219 U/L (135-225); Osmolality Calculated 285 mOsm/kg (285-295); Sodium 136 mmol/L (136-145)
[2023-08-29] MEDS: allopurinol 300 mg Tablet PO (19:25)
[2023-08-29] MEDS: FUROsemide 10 mg/mL SDV 10mL 20 MG IVP (19:25)
[2023-08-29] MEDS: dexamethasone 10 mg/mL INJ IVP (19:26)
--- NOTE | 2023-08-29 19:30 | PC.NURSE ---
Called and gave report to Mane MOY. Patient to be transfered when floor is ready to take patient.
[2023-08-29 19:34] LABS: Troponin(5th) Baseline 13 ng/L (0-15)
[2023-08-29 20:06] LABS: ABG PH Result 7.29 (7.35-7.45); Alveolar-Arterial Oxygen Gradi 32.1 mmHg (5-10); Arterial Blood Gas Hematocrit 32.7 % (42-52); Base Excess ABG 12.9 mmol/L (-2.0-2.0); Blood Gas Sample Site Brachial, left; Blood Gas Sample Type Arterial; HCO3 ABG 42.5 mmol/L (22-26); HGB O2 Sat 96.1 % (95-100); Ionized Calcium Level - ABG 1.2 mmol/L (1.1-1.4); Methemoglobin < 0.0 % (0.4-1.5); Oxygen Device BIPAP; Oxygen Saturation ABG 94.9; PO2 ABG 74.6 mmHg (80.0-100.0); PO2 FiO2 Ratio Arterial Blood 0; Potassium Level - ABG 4.9 mmol/L (3.5-5.0); Total Hemoglobin 10.7 g/dL (14-18)
[2023-08-29 20:07] LABS: ABG PCO2 88.9 mmHg (35-45)
[2023-08-29] MEDS: ondansetron 2 mg/ML SDV 2 mL 4 MG IVP (20:29)
[2023-08-29] MEDS: ipratropium-albuterol 3 mL Neb INHALATION (20:42)
[2023-08-29] MEDS: vancomycin 1,500 MG/300 ML PIGGYBACK 200 MG IV (20:42)
[2023-08-29 21:44] LABS: Troponin 5 2HR 22.84 ng/L (0-15); Troponin 5 2HR Delta 9.84 ABS# (0-10)
[2023-08-29 21:59] LABS: ABG PH Result 7.32 (7.35-7.45); Base Excess ABG 15.2 mmol/L (-2.0-2.0); Blood Gas Allen Test Pos; Blood Gas Sample Site Radial, right; Blood Gas Sample Type Arterial; HCO3 ABG 44.3 mmol/L (22-26); PO2 FiO2 Ratio Arterial Blood 0
[2023-08-29 22:02] LABS: ABG PCO2 86.8 mmHg (35-45)
[2023-08-29] MEDS: piperacillin-tazobactam 4.5 GM in sodium chloride 0.9% (plus) 50 ML IV (22:03)
[2023-08-30] VITALS (91 sets, daily range): BP systolic 92–152; BP diastolic 53–111; PULSE 94–117; RESP 0–30; TEMP 36.7–37.2; O2SAT 86–100; BMI 35.3
--- NOTE | 2023-08-30 01:15 | ECG_ITS ---
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 Measurements Intervals [place] Rate: 105 P: 12 [place]: 131 QRS: 55 QRSD: 74 T: 30 QT: 323 QTc: 428 Interpretive Statements SINUS TACHYCARDIA ABNORMAL RHYTHM ECG Compared to ECG 08/15/2023 16:20:09 Myocardial infarct finding no longer present Electronically Signed On 08-30-2023 18:32:34 [employer] by Larry Gramajo M.D. [id number]
[2023-08-30] MEDS: iohexol 350 mg/mL 500 mL Btl (per mL) IV (01:24)
[2023-08-30 01:40] LABS: Basophils % 0.1 %; Hematocrit 32.3 % (37-53); Lymphocytes # 0.5 10^3/uL (0.8-4.8); Lymphocytes % 3.1 %; Mean Corpuscular HGB Conc 28.2 g/dL (30-55); Mean Corpuscular Hemoglobin 23.1 pg (27-33); Mean Platelet Volume 8.4 fL (7.4-10.4); Monocytes # 0.2 10^3/uL (0.2-0.9); Monocytes % 1.4 %; Neutrophils # 16.12 10^3/uL (1.8-7.7); Neutrophils % 94.9 %; Nucleated Red Blood Cells % 0 %; Platelet Count 296 10^3/cmm (157-399); Red Blood Count 3.94 10^6/uL (3.85-5.65); Red Cell Distribution Width 18.1 % (12.1-15.1); White Blood Count 16.98 10^3/uL (3.29-11.43)
[2023-08-30 01:58] LABS: Troponin 5 6HR 15.64 ng/L (0-15); Troponin 5 6HR Delta 2.64 ng/L (0-12)
[2023-08-30] MEDS: ipratropium-albuterol 3 mL Neb INHALATION ×4 (02:00→19:38)
[2023-08-30 02:09] LABS: Blood Urea Nitrogen 12 mg/dL (6-20); Calcium 8.3 mg/dL (8.5-10.5); Carbon Dioxide 38 mmol/L (22-29); Chloride 95 mmol/L (98-107); Creatinine Clr Calc Pharmacy 293.8022; Glomerular Filtration Rate 204.3 mL/min (90-130); Glucose 122 mg/dL (65-115); Magnesium 2.1 mg/dL (1.7-2.3); Osmolality Calculated 291 mOsm/kg (285-295); Phosphorus 3.8 mg/dL (2.5-4.5); Sodium 140 mmol/L (136-145)
[2023-08-30 02:15] LABS: Anion Gap 12.2 (5-19); Potassium 5.2 mmol/L (3.5-5.1)
[2023-08-30 02:32] LABS: Add Urine Microscopic? YES; Bacteria Urine TRACE /hpf; Bilirubin Urine Neg (Negative); Blood Urine Neg (Negative); Glucose Urine UA Norm (Normal); Ketones Urine Negative (Negative); Leukocyte Esterase Urine Trace (Negative); Nitrate Urine Negative (Negative); Protein Urine Trace (Negative); RBC Urine 0-4 /hpf (0-2); Urine Appearance Clear (CLEAR); Urine Color Yellow (Yellow); Urobilinogen Urine Neg (Negative); WBC Urine 0-4 /hpf (0-5); pH Urine 7 (5-7)
[2023-08-30 02:33] LABS: Add Urine Culture? No; Calcium Oxalate Crystals Urine 0-4 /hpf; Mucus Urine 1+ /hpf
[2023-08-30 04:14] LABS: ABG PCO2 70.6 mmHg (35-45); ABG PH Result 7.39 (7.35-7.45); Arterial Blood Gas Hematocrit 29.9 % (42-52); Base Excess ABG 15.6 mmol/L (-2.0-2.0); Blood Gas Sample Site Brachial, right; Blood Gas Sample Type Arterial; Oxygen Device BIPAP; PO2 ABG 77.9 mmHg (80.0-100.0); PO2 FiO2 Ratio Arterial Blood 0
[2023-08-30] MEDS: piperacillin-tazobactam 4.5 GM in sodium chloride 0.9% (plus) 50 ML IV ×3 (05:18→21:15)
[2023-08-30] MEDS: FUROsemide 10 mg/mL SDV 10mL 20 MG IVP ×2 (08:32→17:33)
[2023-08-30] MEDS: vancomycin 1,250 MG/250 ML PIGGYBACK 250 MG IV ×2 (08:33→21:11)
[2023-08-30 09:35] LABS: INR 1.15 (0.8-1.2)
[2023-08-30 09:37] LABS: Partial Thromboplastin Time 33.1 SECONDS (23.9-36.7)
[2023-08-30] MEDS: allopurinol 300 mg Tablet PO (09:42)
[2023-08-30] MEDS: sennosides-docusate Tablet 1 TAB PO (09:42)
--- NOTE | 2023-08-30 12:12 | P.PN_ITS ---
Subjective 2 Subjective: Transition from BiPAP to high flow nasal cannula On BiPAP requiring 55% oxygen Patient is awake and alert Overnight no vomiting Requesting thoracentesis today Hemolyzed sample to show high potassium LDH is not high BNP 336 No new changes on CT scan of head chest abdomen pelvis Patient seems to have indication for BiPAP, he is hypercapnic which improved with BiPAP hypoxia improved as well is morbidly obese it is very important for this young male to receive BiPAP at home will request pulse ox overnight Vitals/I&O/Wt Last Vital Signs Temp 98.9 F 08/30/23 06:15 Pulse 109 H 08/30/23 10:15 Resp 22 H 08/30/23 10:06 BP 141/80 08/30/23 10:15 Pulse Ox 88 L 08/30/23 10:15 O2 Del Method BiPAP 08/30/23 08:00 O2 Flow Rate 50 08/30/23 10:06 FiO2 55 08/30/23 10:06 08/29/23 08/30/23 08/30/23 22:59 06:59 14:59 Intake Total 300 / 300 50 / 350 300 / 300 Output Total 230 / 230 1450 / 1680 Balance 70 / 70 -1400 / -1330 300 / 300 Weight last 48 hrs Weight 115 kg Weight 115 kg Physical Exam 2 Narrative: Awake and alert GCS 15 Nonfocal neuroexam Pleasant cooperative Off BiPAP to nasal cannula Wants to eat No active vomiting No sign of stroke NIH 0 Extremity edema present, Abdomen soft Splenomegaly Palpable lymphadenopathy anterior cervical neck chain Urinary Catheter Management: Claudio: Cath Placed During This Visit: yes Reason for Continuing Indwelling Catheter: Accurate Measurement of Urinary Output in Critically Ill Patients Urinary Catheter Date of Insertion: 08/29/23 Urinary Catheter Time of Insertion: 21:30 Data 08/30/23 01:33 08/30/23 01:33 A&P Assessment and plan (1) Anxiety and depression: (2) Obesity (BMI 30-39.9): (3) Excessive weight loss: (4) GERD (gastroesophageal reflux disease): Qualifiers: Esophagitis presence: without esophagitis Qualified Code(s): K21.9 - Gastro-esophageal reflux disease without esophagitis (5) Hepatosplenomegaly: (6) Abnormal abdominal ultrasound: (7) Neutrophilic leukocytosis: (8) Metastasis to lung: (9) Chronic coughing: (10) Bronchitis: (11) Acute hypoxic on chronic hypercapnic respiratory failure: (12) Mass of left axilla: (13) Lymphedema: (14) Nodular sclerosis Hodgkin lymphoma, unspecified site: Plan Acute hypoxic hypercarbic respiratory failure Improved on BiPAP Patient will need BiPAP at home He had significant hypoxic hypercarbic episode Will request overnight pulse ox study as well CT head abdomen pelvis did not show any acute neurochange other than worsening right-sided pleural effusion I have requested thoracentesis Patient has not been getting any anticoagulating agent PT/INR is unremarkable I will let him eat after thoracentesis Continue empirical antibiotic coverage Full code Recent echo showed preserved action fraction is seen to be in heart failure continue Lasix Will monitor him in ICU Attestations 2 Medical Necessity Statement*: Keep him in ICU continue current management Diagnoses Anxiety and depression F41.9; F32.A Obesity (BMI 30-39.9) E66.9 Excessive weight loss R63.4 Gastroesophageal reflux disease without esophagitis K21.9 Esophagitis presence: without esophagitis Hepatosplenomegaly R16.2 Abnormal abdominal ultrasound R93.5 Neutrophilic leukocytosis D72.9 Metastasis to lung C78.00 Chronic coughing R05.3 Bronchitis J40 Acute hypoxic on chronic hypercapnic respiratory failure J96.01; J96.12 Mass of left axilla R22.32 Lymphedema I89.0 Nodular sclerosis Hodgkin lymphoma, unspecified site C81.10
--- NOTE | 2023-08-30 14:07 | XR_ITS ---
WS: [id number] PORTABLE CHEST HISTORY: Post thoracentesis, RIGHT COMPARISON: 08/23/2023 No pneumothorax status post thoracentesis. Right-sided thoracentesis was performed. No residual pleur al effusion identified. There is a very small LEFT pleural effusion. Dense consolidation in the centr al RIGHT lung and scattered opacifications throughout the remaining lungs. Cardiac size: Mildly enlarged. Mediastinum/Aorta: Mediastinal widening due to airspace disease. Left-sided Mediport. No osseous abnormality seen. IMPRESSION: 1. No right-sided pneumothorax status post thoracentesis. 2. No residual RIGHT pleural effusion. 3. Dense areas of consolidation and scattered opacifications throughout both lungs.
--- NOTE | 2023-08-30 14:32 | PC.NURSE ---
500 ml removed with thoracentesis
[2023-08-30 15:04] LABS: Mononuclear %, Pleural Fluid 91 %; Mononuclear, Pleural Fluid # 2.203 10^3/uL; Polynuclear Cells, Pleural % 9 %
[2023-08-30 15:09] LABS: LDH Pleural Fluid 188 U/L; Total Protein Pleural Fluid 2.8 g/dL
[2023-08-30 15:42] LABS: Appearance, Pleural Fluid CLOUDY (CLEAR); Color, Pleural Fluid Yellow (Pale Yellow); PATH Referal YES
[2023-08-30 15:43] LABS: Fluid Laterality RIGHT LOWER
[2023-08-30 15:46] LABS: Right Pleural Fluid Right Lung
[2023-08-30 15:52] LABS: Cyto Order Verification No Order; PATH Referral YES
--- NOTE | 2023-08-30 18:15 | US_ITS ---
WS: [id number] ULTRASOUND-GUIDED THORACENTESIS HISTORY: rt sided effusion Procedure, risks, and complications were explained to the patient. With the patient in an upright pos ition, the skin over the RIGHT posterior thorax was cleansed with ChloraPrep and anesthetized with 1% buffered lidocaine. A 5 Serbian Yueh needle is inserted into the pleural fluid without complication. Approximately 500 cc of clear pleural fluid is removed without difficulty. Specimen collected for analysis. IMPRESSION: 1. RIGHT thoracentesis yielding 500 cc of fluid. 2. Chest radiograph to follow to evaluate for pneumothorax.
[2023-08-31] VITALS (32 sets, daily range): BP systolic 96–142; BP diastolic 48–83; PULSE 81–107; RESP 10–24; TEMP 36.4–37; O2SAT 88–100; BMI 35.2
[2023-08-31] MEDS: ipratropium-albuterol 3 mL Neb INHALATION ×4 (02:22→20:02)
[2023-08-31 05:18] LABS: Basophils % 0.1 %; Hematocrit 28.2 % (37-53); Lymphocytes # 1.3 10^3/uL (0.8-4.8); Lymphocytes % 8.1 %; Mean Corpuscular HGB Conc 29.1 g/dL (30-55); Mean Corpuscular Hemoglobin 23.4 pg (27-33); Mean Corpuscular Volume 80.6 fl (82-101); Mean Platelet Volume 9.2 fL (7.4-10.4); Monocytes # 0.9 10^3/uL (0.2-0.9); Monocytes % 5.3 %; Neutrophils # 13.88 10^3/uL (1.8-7.7); Nucleated Red Blood Cells % 0 %; Platelet Count 263 10^3/cmm (157-399); Red Cell Distribution Width 18.6 % (12.1-15.1); White Blood Count 16.14 10^3/uL (3.29-11.43)
[2023-08-31] MEDS: piperacillin-tazobactam 4.5 GM in sodium chloride 0.9% (plus) 50 ML IV ×3 (05:30→21:44)
[2023-08-31 05:45] LABS: Anion Gap 9.1 (5-19); Blood Urea Nitrogen 17 mg/dL (6-20); Calcium 8.1 mg/dL (8.5-10.5); Chloride 96 mmol/L (98-107); Creatinine Clr Calc Pharmacy 293.4916; Glomerular Filtration Rate 204.3 mL/min (90-130); Glucose 112 mg/dL (65-115); Osmolality Calculated 296 mOsm/kg (285-295); Potassium 4.1 mmol/L (3.5-5.1); Sodium 142 mmol/L (136-145)
[2023-08-31 05:59] LABS: Carbon Dioxide 41 mmol/L (22-29)
[2023-08-31 08:23] LABS: ABG PH Result 7.44 (7.35-7.45); Arterial Blood Gas Hematocrit 26.1 % (42-52); Blood Gas Allen Test Pos; Blood Gas Operator Identificat GD; Blood Gas Sample Site Radial, left; Blood Gas Sample Type Arterial; HCO3 ABG 44.6 mmol/L (22-26); Oxygen Device BIPAP; PO2 ABG 81.3 mmHg (80.0-100.0); PO2 FiO2 Ratio Arterial Blood 0
[2023-08-31 08:24] LABS: ABG PCO2 66.4 mmHg (35-45)
[2023-08-31] MEDS: vancomycin 1,250 MG/250 ML PIGGYBACK 250 MG IV (08:50)
[2023-08-31] MEDS: allopurinol 300 mg Tablet PO (08:51)
[2023-08-31] MEDS: sennosides-docusate Tablet 1 TAB PO (08:51)
[2023-08-31] MEDS: FUROsemide 10 mg/mL SDV 10mL 20 MG IVP ×2 (08:51→18:14)
--- NOTE | 2023-08-31 09:55 | P.PN_ITS ---
Subjective 2 Subjective: History much better Required BiPAP overnight pCO2 has improved Will request pulse ox overnight they were not able to because he was requiring 50% oxygen on heated high flow and BiPAP I have turned his oxygen down to 35% I have asking Resp therapist to use humidified high flow nasal cannula 5 to 6 L Patient will not go home without BiPAP because he is at risk of respiratory compromise with significant hypercapnic episode noted during hospitalization, he is also requiring higher oxygen concentration, sleep apnea episode noted by the nursing staff overnight Vitals/I&O/Wt Last Vital Signs Temp 97.5 F L 08/31/23 05:30 Pulse 84 08/31/23 08:00 Resp 16 08/31/23 07:45 BP 110/61 08/31/23 06:00 Pulse Ox 95 08/31/23 08:00 O2 Del Method BiPAP 08/31/23 07:45 O2 Flow Rate 50 08/31/23 02:23 FiO2 55 08/31/23 08:00 08/30/23 08/31/23 08/31/23 22:59 06:59 14:59 Intake Total 550 / 850 850 / 1700 690 / 690 Output Total 1100 / 2400 1100 / 3500 Balance -550 / -1550 -250 / -1800 690 / 690 Weight last 48 hrs Weight 114.759 kg Weight 115 kg Weight 115 kg Physical Exam 2 Narrative: Sign of fluid load improving Extremity edema Pleasant cooperative GCS 15 No signs of confusion S1, S2 Nonfocal neuroexam Abdomen soft with splenomegaly Lower extremity edema Urinary Catheter Management: Claudio: Cath Placed During This Visit: yes Reason for Continuing Indwelling Catheter: Accurate Measurement of Urinary Output in Critically Ill Patients Urinary Catheter Date of Insertion: 08/29/23 Urinary Catheter Time of Insertion: 21:30 Data 08/31/23 04:44 08/31/23 04:44 A&P Assessment and plan (1) Anxiety and depression: (2) Obesity (BMI 30-39.9): (3) Excessive weight loss: (4) GERD (gastroesophageal reflux disease): Qualifiers: Esophagitis presence: without esophagitis Qualified Code(s): K21.9 - Gastro-esophageal reflux disease without esophagitis (5) Hepatosplenomegaly: (6) Neutrophilic leukocytosis: (7) Metastasis to lung: (8) Chronic coughing: (9) Bronchitis: (10) Acute hypoxic on chronic hypercapnic respiratory failure: (11) Lymphedema: (12) Nodular sclerosis Hodgkin lymphoma, unspecified site: Plan Acute hypoxic hypercapnic respiratory failure Improved with BiPAP We are trying to arrange BiPAP for home Will request pulse ox study overnight He is significantly hypercapnic Acute hypoxia: Requiring 35% oxygen on BiPAP I will switch him to humidified nasal cannula 5 to 6 L Postthoracentesis Exudative as per lights criteria Likely cancer related Afebrile Continue broad-spectrum antibiotics I will request respiratory panel Lymphoma status post first chemotherapy with Dr. Baldwin No signs of tumor lysis syndrome Continue allopurinol Discontinue steroids Diastolic CHF exacerbation continue Lasix as well and continue IV Lasix 20 IV twice daily Full code Regular diet Continue ICU management Attestations 2 Medical Necessity Statement*: Continue ICU management Diagnoses Anxiety and depression F41.9; F32.A Obesity (BMI 30-39.9) E66.9 Excessive weight loss R63.4 Gastroesophageal reflux disease without esophagitis K21.9 Esophagitis presence: without esophagitis Hepatosplenomegaly R16.2 Neutrophilic leukocytosis D72.9 Metastasis to lung C78.00 Chronic coughing R05.3 Bronchitis J40 Acute hypoxic on chronic hypercapnic respiratory failure J96.01; J96.12 Lymphedema I89.0 Nodular sclerosis Hodgkin lymphoma, unspecified site C81.10
[2023-08-31 11:24] LABS: Adenovirus Not Detected (NOT DETECT); Chlamydia Pneumoniae Not Detected (NOT DETECT); Coronavirus 229E,HKU1,NL63,OC4 Not Detected (NOT DETECT); Human Metapneumovirus Not Detected (NOT DETECT); Human Rhinovirus/Enterovirus Not Detected (NOT DETECT); Influenza A Not Detected (NOT DETECT); Influenza A H1 Not Detected (NOT DETECT); Influenza A H1-2009 Not Detected (NOT DETECT); Influenza A H3 Not Detected (NOT DETECT); Influenza B Not Detected (NOT DETECT); Mycoplasma Pneumoniae Not Detected (NOT DETECT); Parainfluenza Virus Type 1 Not Detected (NOT DETECT); Parainfluenza Virus Type 2 Not Detected (NOT DETECT); Parainfluenza Virus Type 3 Not Detected (NOT DETECT); Parainfluenza Virus Type 4 Not Detected (NOT DETECT); Respiratory Syncytial Virus A Not Detected (NOT DETECT); Respiratory Syncytial Virus B Not Detected (NOT DETECT); SARS-COV-2 Not Detected (NOT DETECT)
[2023-08-31 20:33] LABS: Vancomycin Trough 7.8 ug/mL (10-15)
[2023-08-31] MEDS: vancomycin 1,500 MG/300 ML PIGGYBACK 200 MG IV (21:46)
[2023-09-01] VITALS (30 sets, daily range): BP systolic 107–135; BP diastolic 54–85; PULSE 95–109; RESP 1–39; O2SAT 86–100; BMI 35.2
[2023-09-01] MEDS: ipratropium-albuterol 3 mL Neb INHALATION ×2 (01:02→08:28)
[2023-09-01 05:17] LABS: ABG PH Result 7.42 (7.35-7.45); Arterial Blood Gas Hematocrit 25.7 % (42-52); Base Excess ABG 14.7 mmol/L (-2.0-2.0); Blood Gas Allen Test Pos; Blood Gas Operator Identificat JB; Blood Gas Sample Site Radial, right; Blood Gas Sample Type Arterial; Oxygen Device NC; PO2 ABG 69.1 mmHg (80.0-100.0)
[2023-09-01 05:18] LABS: Basophils % 0.2 %; Eosinophils % 0.3 %; Hematocrit 30.6 % (37-53); Lymphocytes # 1.5 10^3/uL (0.8-4.8); Lymphocytes % 16.9 %; Mean Corpuscular HGB Conc 28.4 g/dL (30-55); Mean Corpuscular Volume 80.7 fl (82-101); Mean Platelet Volume 8.8 fL (7.4-10.4); Monocytes # 0.3 10^3/uL (0.2-0.9); Neutrophils # 7.17 10^3/uL (1.8-7.7); Neutrophils % 79.2 %; Nucleated Red Blood Cells % 0 %; Platelet Count 266 10^3/cmm (157-399); Red Blood Count 3.79 10^6/uL (3.85-5.65); Red Cell Distribution Width 19.2 % (12.1-15.1); White Blood Count 9.06 10^3/uL (3.29-11.43)
[2023-09-01] MEDS: piperacillin-tazobactam 4.5 GM in sodium chloride 0.9% (plus) 50 ML IV (05:42)
[2023-09-01 05:55] LABS: Anion Gap 10.8 (5-19); Blood Urea Nitrogen 14 mg/dL (6-20); Calcium 7.9 mg/dL (8.5-10.5); Carbon Dioxide 39 mmol/L (22-29); Chloride 96 mmol/L (98-107); Creatinine Clr Calc Pharmacy 293.4916; Glomerular Filtration Rate 204.3 mL/min (90-130); Glucose 91 mg/dL (65-115); Osmolality Calculated 294 mOsm/kg (285-295); Potassium 3.8 mmol/L (3.5-5.1); Sodium 142 mmol/L (136-145)
[2023-09-01] MEDS: sennosides-docusate Tablet 1 TAB PO (08:35)
[2023-09-01] MEDS: FUROsemide 10 mg/mL SDV 10mL 20 MG IVP (08:35)
[2023-09-01] MEDS: allopurinol 300 mg Tablet PO (08:35)
--- NOTE | 2023-09-01 10:04 | PM.DCS ---
Discharge Providers Date of Admission: 08/29/23 17:13 Date of Discharge: September 01, 2023 Attending Provider at Admission: Evelyn Martinez MD Attending Provider at Discharge: Evelyn Martinez MD Primary Care Provider: Enrrique Fuller MD Diagnoses at Discharge Discharge Diagnosis (1) Anxiety and depression: Status: Acute (2) Obesity (BMI 30-39.9): Status: Acute (3) Excessive weight loss: Status: Acute Permanent problem details: Last 110 pounds in last 6 to 8 weeks (4) GERD (gastroesophageal reflux disease): Status: Acute Qualifiers: Esophagitis presence: without esophagitis Qualified Code(s): K21.9 - Gastro-esophageal reflux disease without esophagitis (5) Hepatosplenomegaly: Status: Acute (6) Neutrophilic leukocytosis: Status: Acute (7) Metastasis to lung: Status: Acute (8) Chronic coughing: Status: Chronic (9) Bronchitis: Status: Acute (10) Acute hypoxic on chronic hypercapnic respiratory failure: Status: Acute (11) Lymphedema: Status: Acute (12) Nodular sclerosis Hodgkin lymphoma, unspecified site: Status: Acute Reason for Visit Reason for Visit: Hypoxia,lethargic Hospital Course Hospital Course 22-year-old male who was diagnosed with sclerosing Hodgkin's lymphoma, came to Dr. Baldwin clinic to attend his first chemotherapy session became symptomatic with diaphoresis, altered mental status, very drowsy, he was sent to the hospital as a direct admit after 3 hours of first chemotherapy cycle, patient was diagnosed with hypoxic hypercarbic respiratory failure pCO2 121, he was immediately transferred from CICU to ICU he was put on AVAPS with tidal volume 550 mL, repeat blood gases did show improvement, we were able to avoid intubation, he was closely monitored in the ICU, repeat ABGs showed gradual improvement, patient seems to have obesity hypoventilation syndrome, qualify for BiPAP, overnight pulse ox showed hypoxia as well, we arranging BiPAP with settings 18/8 FiO2 50% respirate 14, patient will also need home oxygen about 4 L at the time of discharge, CT head, chest abdomen pelvis did not show anything acute/new onset. I kept him on broad-spectrum antibiotics however he remained afebrile cultures negative no significant leukocytosis. He was given allopurinol no signs of tumor lysis syndrome. He will discharge back home with BiPAP and oxygen. Patient has preserved action fraction heart failure mild exacerbation for which I will give him Lasix to be used on as needed basis along albuterol Physical Exam Narrative: Awake and alert GCS 15 Using 4 L of oxygen Pleasant and cooperative Sign of fluid load improving Lymphedema of lower extremities S1, S2 Nonfocal neuroexam NIH 0 Urinary Catheter Management: Claudio: Cath Placed During This Visit: yes Reason for Continuing Indwelling Catheter: Accurate Measurement of Urinary Output in Critically Ill Patients Urinary Catheter Date of Insertion: 08/29/23 Urinary Catheter Time of Insertion: 21:30 Discharge Data Studies Completed and Pending Completed Studies During Hospitalization Category Date Time Status CT angio chest w abd pel w con Routine Cat Scan 08/29/23 18:[address] head wo con* [id number] Routine Cat Scan 08/29/23 19:18 Completed XR chest 1V portable [id number] Routine Exams 08/30/23 14:07 Completed US thoracentesis [id number] Routine Ultrasound 08/30/23 18:15 Completed Radiology Impressions Chest/Abdomen/Pelvis CT 08/29/23 18:11 IMPRESSION: Negative for pulmonary artery embolism. IMPRESSION: 1. Negative for acute abdominopelvic pathology. 2. No significant overall change in the metastatic disease. Head CT 08/29/23 19:18 IMPRESSION: 1. No acute intracranial hemorrhage or mass effect. 2. No definite acute infarct by CT, see above. 3. Other findings discussed above. Laboratory Results WBC 9.06 10^3/uL (3.29-11.43) 09/01/23 04:02 RBC 3.79 10^6/uL (3.85-5.65) L 09/01/23 04:02 Hgb 8.70 g/dL (11.27-16.99) L 09/01/23 04:02 Hct 30.6 % (37-53) L 09/01/23 04:02 MCV 80.7 fl (82-101) L 09/01/23 04:02 MCH 23.0 pg (27-33) L 09/01/23 04:02 MCHC 28.4 g/dL (30-55) L 09/01/23 04:02 RDW 19.2 % (12.1-15.1) H 09/01/23 04:02 Plt Count 266 10^3/cmm (157-399) 09/01/23 04:02 MPV 8.8 fL (7.4-10.4) 09/01/23 04:02 Neut % (Auto) 79.2 % 09/01/23 04:02 Lymph % (Auto) 16.9 % 09/01/23 04:02 [facility] % (Auto) 3.0 % 09/01/23 04:02 Eos % (Auto) 0.3 % 09/01/23 04:02 Baso % (Auto) 0.2 % 09/01/23 04:02 Neut # (Auto) 7.17 10^3/uL (1.8-7.7) 09/01/23 04:02 Lymph # (Auto) 1.5 10^3/uL (0.8-4.8) 09/01/23 04:02 [facility] # (Auto) 0.3 10^3/uL (0.2-0.9) 09/01/23 04:02 Eos # (Auto) 0.0 10^3/uL (0.0-0.8) 09/01/23 04:02 Baso # (Auto) 0.0 10^3/uL (0.0-0.1) 09/01/23 04:02 Nucleated RBC % (auto) 0 % 09/01/23 04:02 Total Counted Not Reportable 08/30/23 14:05 Nucleated RBCs # 0.0 /100WBC 09/01/23 04:02 PT 15.00 SECONDS (12.1-14.9) H 08/30/23 09:03 INR 1.15 (0.8-1.2) 08/30/23 09:03 APTT 33.1 SECONDS (23.9-36.7) 08/30/23 09:03 D-Dimer 5.05 ug/mLFEU (0-0.59) H 08/29/23 18:31 Specimen Type Arterial 09/01/23 04:45 Sample Site Radial, right 09/01/23 04:45 ABG pH 7.42 (7.35-7.45) 09/01/23 04:45 ABG pCO2 63.0 mmHg (35-45) H* 09/01/23 04:45 ABG pO2 69.1 mmHg (80.0-100.0) L 09/01/23 04:45 ABG PO2/FiO2 Ratio 0 08/31/23 08:07 ABG HCO3 41.0 mmol/L (22-26) H 09/01/23 04:45 ABG O2 Saturation 94.9 08/29/23 19:52 ABG Base Excess 14.7 mmol/L (-2.0-2.0) H 09/01/23 04:45 Juan C Test Pos 09/01/23 04:45 A-a O2 Gradient 32.1 mmHg (5-10) H 08/29/23 19:52 Hematocrit 25.7 % (42-52) L 09/01/23 04:45 Hgb O2 Saturation 96.1 % (95-100) 08/29/23 19:52 Carboxyhemoglobin 1.0 %THgb (0.4-20.1) 08/29/23 19:52 Methemoglobin < 0.0 % (0.4-1.5) L 08/29/23 19:52 Total Hemoglobin 10.7 g/dL (14-18) L 08/29/23 19:52 Sodium 142.0 mmol/L (131-143) 08/29/23 19:52 Potassium 4.9 mmol/L (3.5-5.0) 08/29/23 19:52 Glucose 167.0 mg/dL (70-115) H 08/29/23 19:52 Ionized Calcium 1.2 mmol/L (1.1-1.4) 08/29/23 19:52 O2 Delivery Device Nc 09/01/23 04:45 O2 Liters/Min 5.0 % 09/01/23 04:45 FiO2 55.0 % 08/31/23 08:07 Tidal Volume 0.50 08/30/23 04:00 PEEP 8.0 cmH20 08/30/23 04:00 Bracelet Form Coverer ID Augustin 09/01/23 04:45 Sodium 142 mmol/L (136-145) 09/01/23 04:02 Potassium 3.8 mmol/L (3.5-5.1) 09/01/23 04:02 Chloride 96 mmol/L (98-107) L 09/01/23 04:02 Carbon Dioxide 39 mmol/L (22-29) H 09/01/23 04:02 Anion Gap 10.8 (5-19) 09/01/23 04:02 BUN 14 mg/dL (6-20) 09/01/23 04:02 Creatinine 0.5 mg/dL (0.7-1.2) L 09/01/23 04:02 GFR Calculation 204.3 mL/min (90-130) H 09/01/23 04:02 Glucose 91 mg/dL (65-115) 09/01/23 04:02 Calculated Osmolality 294 mOsm/kg (285-295) 09/01/23 04:02 Calcium 7.9 mg/dL (8.5-10.5) L 09/01/23 04:02 Phosphorus 3.8 mg/dL (2.5-4.5) 08/30/23 01:33 Magnesium 2.1 mg/dL (1.7-2.3) 08/30/23 01:33 Lactate Dehydrogenase 219 U/L (135-225) 08/29/23 18:31 Troponin T Baseline 13 ng/L (0-15) 08/29/23 18:31 Troponin T 120 Minute 22.84 ng/L (0-15) H 08/29/23 21:17 Delta Troponin T 9.84 ABS# (0-10) 08/29/23 21:17 Troponin T Hi Sens 6Hr 15.64 ng/L (0-15) H 08/30/23 01:33 Troponin T Hi Sens 6Hr Delta 2.64 ng/L (0-12) 08/30/23 01:33 C-Reactive Protein 137.0 mg/L (0.0-4.9) H 08/30/23 01:33 NT-Pro-B Natriuret Pep 336 pg/mL (0-125) H 08/29/23 18:31 Procalcitonin 0.15 ng/mL (0-0.5) 08/29/23 18:31 TSH 0.50 uIU/mL (0.27-4.20) 08/29/23 18:31 Urine Color Yellow (Yellow) 08/30/23 02:15 Urine Appearance Clear (CLEAR) 08/30/23 02:15 Urine pH 7 (5-7) 08/30/23 02:15 Ur Specific [place] 1.010 (1.005-1.030) 08/30/23 02:15 Urine Protein Trace (Negative) 08/30/23 02:15 Urine Glucose (UA) Norm (Normal) 08/30/23 02:15 Urine Ketones Negative (Negative) 08/30/23 02:15 Urine Blood Neg (Negative) 08/30/23 02:15 Urine Nitrate Negative (Negative) 08/30/23 02:15 Urine Bilirubin Neg (Negative) 08/30/23 02:15 Urine Urobilinogen Neg mg/dL (Negative) 08/30/23 02:15 Ur Leukocyte Esterase Trace (Negative) H 08/30/23 02:15 Urine RBC 0-4 /hpf (0-2) H 08/30/23 02:15 Urine WBC 0-4 /hpf (0-5) H 08/30/23 02:15 Ur Squamous Epith Cells None /hpf (0-5) 08/30/23 02:15 Calcium Oxalate Crystal 0-4 /hpf H 08/30/23 02:15 Amorphous Sediment Not Reportable 08/30/23 02:15 Urine Bacteria Trace /hpf (NONE) 08/30/23 02:15 Urine Mucus 1+ /hpf 08/30/23 02:15 Fld Crystal Laterality Right lower 08/30/23 14:05 Pleural Color Yellow (Pale Yellow) H 08/30/23 14:05 Pleural Appearance Cloudy (CLEAR) 08/30/23 14:05 Pleural pH 9.00 (6.5-7.5) H 08/30/23 14:05 Pleural WBC 2433.000 /uL (0-1000) H 08/30/23 14:05 Pleural RBC 1.000 10^3/uL 08/30/23 14:05 Pleural Mononuc # Auto 2.203 10^3/uL 08/30/23 14:05 Pleural Other Cells Not Reportable 08/30/23 14:05 Pleural Polynuclear % 9 % 08/30/23 14:05 Pleural Polynuclear # 0.230 10^3/uL 08/30/23 14:05 Pleural Mononuclear % 91 % 08/30/23 14:05 Pleural Other Cells Rt Right lung 08/30/23 14:05 Pleural Total Protein 2.8 g/dL 08/30/23 14:05 Pleural LDH 188 U/L 08/30/23 14:05 Pleural Glucose 118.0 mg/dL 08/30/23 14:05 Vancomycin Trough 7.8 ug/mL (10-15) L 08/31/23 19:20 Adenovirus (PCR) Not detected (NOT DETECT) 08/31/23 09:00 C. pneumoniae DNA (PCR) Not detected (NOT DETECT) 08/31/23 09:00 Coronavirus 229E (PCR) Not detected (NOT DETECT) 08/31/23 09:00 Human Metapneumovir PCR Not detected (NOT DETECT) 08/31/23 09:00 Influenza A (H1) PCR Not detected (NOT DETECT) 08/31/23 09:00 Influ A (H1/09) PCR Not detected (NOT DETECT) 08/31/23 09:00 Influenza A (H3) PCR Not detected (NOT DETECT) 08/31/23 09:00 Influenza Type A (PCR) Not detected (NOT DETECT) 08/31/23 09:00 Influenza Type B (PCR) Not detected (NOT DETECT) 08/31/23 09:00 M. pneumoniae (PCR) Not detected (NOT DETECT) 08/31/23 09:00 Parainfluenza 1 (PCR) Not detected (NOT DETECT) 08/31/23 09:00 Parainfluenza 2 (PCR) Not detected (NOT DETECT) 08/31/23 09:00 Parainfluenza 3 (PCR) Not detected (NOT DETECT) 08/31/23 09:00 Parainfluenza 4 (PCR) Not detected (NOT DETECT) 08/31/23 09:00 RSV Type A (PCR) Not detected (NOT DETECT) 08/31/23 09:00 RSV Type B (PCR) Not detected (NOT DETECT) 08/31/23 09:00 Entero/Rhino (PCR) Not detected (NOT DETECT) 08/31/23 09:00 SARS-CoV-2 (PCR) Not detected (NOT DETECT) 08/31/23 09:00 Path Cons w/Slide Yes 08/30/23 14:05 Pathology Message Yes 08/30/23 14:05 Vitals Last Vital Signs Temp 98.5 F 08/31/23 22:00 Pulse 95 09/01/23 08:35 Resp 16 09/01/23 08:28 BP 111/75 09/01/23 04:20 Pulse Ox 100 09/01/23 08:28 O2 Del Method High Flow Nasal Cannula 09/01/23 08:28 O2 Flow Rate 4 09/01/23 08:28 FiO2 55 08/31/23 08:00 Discharge Plan Discharge Patient Disposition: Home Condition: Stable Prescriptions: New albuterol sulfate 90 mcg/actuation HFA aerosol inhaler 2 inh inhalation Q8H PRN (Reason: shortness of breath or wheezing) Qty: 6.7 3RF furosemide [Lasix] 20 mg tablet 20 mg PO DAILY PRN (Reason: edema) Qty: 60 2RF potassium chloride 10 mEq tablet extended release 10 meq PO .As needed PRN (Reason: edema) Qty: 30 1RF Rx Instructions: Only take 1 pill when you take Lasix Continued acetaminophen 500 mg capsule 500 mg PO Q6H PRN (Reason: Pain) lidocaine-prilocaine 2.5-2.5 % cream 1 applic topical .COMPLEX Qty: 30 3RF Rx Instructions: Apply quarter size amount 30-45 minutes prior to port access, cover with cellophane lorazepam 1 mg tablet 0.5 - 1 mg PO Q6H PRN (Reason: Severe Nausea) Qty: 30 3RF allopurinol 300 mg tablet 300 mg PO DAILY Qty: 30 0RF albuterol sulfate [Ventolin HFA] 90 mcg/actuation HFA aerosol inhaler 2 puff inhalation QID Qty: 6.7 0RF benzonatate 200 mg capsule 200 mg PO TID Qty: 90 0RF oxycodone 10 mg tablet 10 mg PO Q4H PRN (Reason: pain) 30 Days Qty: 120 0RF ondansetron HCl 4 mg Tablet 4 mg PO QID PRN (Reason: Nausea/vomiting) Qty: 30 3RF prochlorperazine maleate [Compazine] 10 mg tablet 10 mg PO Q4H PRN (Reason: Mild Nausea) Qty: 30 3RF ondansetron 4 mg tablet,disintegrating 4 mg PO Q6H PRN (Reason: NAUSEA/VOMITING) Discharge Orders: Discharge Order (Routine); Ordered 09/01/23 Ordered By: Evelyn Martinez Other Ambulatory Orders: DME: BIPAP (Order) Location: None Selected Ordered By: Evelyn Martinez Discharge Diet: Cardiac Discharge Activity: Increase activity as tolerated Patient Instructions: Opioid Safety Activity Restrictions/Additional Instructions: You can use Lasix when you think you are getting fluid overloaded and shortness of breath is getting worse I have given you potassium as well which you can take only on days when you are taking Lasix You have obesity hypoventilation syndrome that is why we have approved your BiPAP to be used at nighttime and oxygen during the day Good luck with your chemo treatment Discharge Attestations Time Spent in Discharge Care*: greater than 30 min Quality Metrics Clinical Quality Measures [ No reported AMI, CVA or VTE this stay] Coding Level of Care Code Acute Code for Chg Fwd Diagnoses Anxiety and depression F41.9; F32.A Obesity (BMI 30-39.9) E66.9 Excessive weight loss R63.4 Gastroesophageal reflux disease without esophagitis K21.9 Esophagitis presence: without esophagitis Hepatosplenomegaly R16.2 Neutrophilic leukocytosis D72.9 Metastasis to lung C78.00 Chronic coughing R05.3 Bronchitis J40 Acute hypoxic on chronic hypercapnic respiratory failure J96.01; J96.12 Lymphedema I89.0 Nodular sclerosis Hodgkin lymphoma, unspecified site C81.10
--- NOTE | 2023-09-01 13:57 | PC.NURSE ---
Discharge Note Patient discharged to [home] via [w/c to POV] accompanied by [family]. Discharge instructions reviewed with patient and/or indirect sales representative. Mobile pharmacy medications and/or prescriptions provided. Belongings returned.
== END 2023-09-01 13:20 | disposition home or self-care (01) | DRG 166 ==
LOC: CSU 17:33 → ICU 19:52
PROVIDERS: Student in an Organized Health Care Education/Training Program; Admitting Provider Internal Medicine; PCP Family Medicine Adult Medicine; Visit Provider Internal Medicine
DX: J96.22 Acute and chronic respiratory failure with hypercapnia (principal); I50.33 Acute on chronic diastolic (congestive) heart failure; C81.10 Nodular sclerosis Hodgkin lymphoma, unspecified site; J90 Pleural effusion, not elsewhere classified; E66.2 Morbid (severe) obesity with alveolar hypoventilation; C78.00 Secondary malignant neoplasm of unspecified lung; C78.89 Secondary malignant neoplasm of other digestive organs; J96.21 Acute and chronic respiratory failure with hypoxia; Z68.35 Body mass index [BMI] 35.0-35.9, adult; F41.9 Anxiety disorder, unspecified; F32.A Depression, unspecified; K21.9 Gastro-esophageal reflux disease without esophagitis; Z87.891 Personal history of nicotine dependence; R63.4 Abnormal weight loss; R05.3 Chronic cough; I89.0 Lymphedema, not elsewhere classified; J40 Bronchitis, not specified as acute or chronic; R22.9 Localized swelling, mass and lump, unspecified
CPT/HCPCS: 32555; 36415; 36591; 36592; 36600; 51702; 70450; 71045; 71275; 74177; 80048; 80051; 80053; 80202; 80503; 81001; 82330; 82803; 82805; 82945; 83615; 83735; 83880; 83986; 84100; 84145; 84157; 84443; 84484; 85025; 85378; 85610; 85730; 86140; 87486; 87581; 87633; 89050; 93005; 94640; 94660; 94760; 96365; 96367; 96374; 96375; 96376; 96409; 96413; 96417; A4222; J1100; J1200; J1453; J1642; J1940; J2405; J2469; J2543; J3370; J3490; J7040; J7050; J9000; J9130; J9299; J9360; Q9967

== ENCOUNTER 2023-09-03 21:22 | Inpatient (IN) | payer OTHER, SELFPAY ==
[2023-09-03 21:25] VITALS: BP 132/83; PULSE 115; RESP 22; TEMP 38.1; O2SAT 96; BMI 34.8
--- NOTE | 2023-09-03 21:33 | XRR_ITS ---
PROCEDURE INFORMATION: Exam: XR Chest Exam date and time: 09/03/2023 9:37 PM Age: 22 years old Clinical indication: Prior surgery; Surgery date: 6+ months; Surgery type: Chest port; Patient HX: Fever. History of lymphoma with lung mets. TECHNIQUE: Imaging protocol: Radiologic exam of the chest. Views: 1 view. COMPARISON: CR XR chest 1V portable [id number] 08/30/2023 2:21 PM FINDINGS: Tubes, catheters and devices: Left-sided infusion port catheter tip again reaches the cavoatrial junction. Low lung volumes. Lungs: Extensive bilateral airspace opacities in peribronchial thickening and micro nodularity again demonstrated. The degree of right upper lobe and suprahilar consolidation has improved since 08/30/2023. . Low lung volumes. Pleural spaces: Small left pleural effusion is unchanged. Trace recurrent right pleural effusion. Heart/Mediastinum: Stable borderline cardiac silhouette size. Bones/joints: Unremarkable. XR/XR chest 1V portable [id number] IMPRESSION: 1. Interval improvement in the degree of airspace consolidation in the right perihilar/upper and middle lobes since 08/30/2023. Moderately extensive bilateral airspace opacities remain bilaterally. 2. Small bilateral pleural effusions. Low lung volumes. Numerous lung nodules again demonstrated.
--- NOTE | 2023-09-03 21:39 | ED_ITS ---
HPI - Fever 2 General: Chief Complaint: Fever Stated Complaint: fever Time Seen by Provider: 09/03/23 21:30 Source: patient and family Mode of arrival: ambulatory Limitations: no limitations History of Present Illness: 22-year-old male who was diagnosed with Hodgkin's lymphoma roughly a month ago he got admitted last week after his first chemo treatment after having severe respiratory distress he has been on 4 L oxygen and was discharged . He states that today he started to feel very weak and very tired with body aches mother states she took his temperature and he is febrile he does have a temp of 100.5. Denies any worsening shortness of breath states that he just does feel very tired. Associated symptoms: Reports chills; Deny abdominal pain, chest pain, diarrhea, dysuria, headache(s), nausea or vomiting Review of Systems 2 Const: Reports: fever(s), chills, fatigue and malaise; Denies: body aches or change in appetite Eyes: Denies: eye discomfort ENMT: Denies: throat pain or dental pain Card: Denies: chest pain Resp: Reports: dyspnea GI: Denies: abdominal pain, nausea, vomiting or diarrhea : Denies: dysuria Musc: Denies: neck pain or back pain Skin/Breast: Denies: rash Neuro: Denies: headache(s) PFSH ED 2 PFSH: Medical History Lymphedema Acute hypoxic on chronic hypercapnic respiratory failure Nodular sclerosis Hodgkin lymphoma, unspecified site Metastasis to lung Mass of left axilla Bronchitis Chronic coughing Neutrophilic leukocytosis Hepatosplenomegaly Abnormal abdominal ultrasound Excessive weight loss Last 110 pounds in last 6 to 8 weeks Allergic rhinitis due to allergen Obesity (BMI 30-39.9) Anxiety and depression GERD (gastroesophageal reflux disease) No pertinent past medical history Surgical History No pertinent past surgical history Family History Father Stroke Hypertension Mother Thyroid disease Social History Smoking and tobacco/nicotine status: former use of tobacco/nicotine Quit status (tobacco/nicotine): has quit using Year quit tobacco: 2021 Former quit date comment: 2 years vaping Alcohol intake: never Substance/Drug Use: never Physical Exam 2 Const: COMMON NORMALS: patient oriented x3 GENERAL APPEARANCE: ill appearing HENMT: COMMON NORMALS: normocephalic and atraumatic HEAD & SCALP: n ormocephalic and atraumatic Eye: COMMON NORMALS: Equal, round and reactive pupils present and EOMs intact bilaterally PUPIL: Yes Equal, round and reactive pupils present Neck/C-Spine: COMMON NORMALS: full ROM and supple Chest: COMMONS NORMALS: normal inspection of the chest Resp: COMMON NORMALS: normal respiratory effort, No retractions, No use of accessory muscles and clear to auscultation bilaterally AUSCULTATION: clear to auscultation bilaterally Cardio: COMMON NORMALS: regular rhythm and No murmurs present (Cardio) R ATE: tachycardic RHYTHM: regular rhythm GI: COMMON NORMALS: Normal to inspection, nondistended, normoactive bowel sounds present, Soft to palpation, non-tender and no masses PALPATION: Yes Soft to palpation Extremity: COMMON NORMALS: normal to inspection and full ROM Neuro: COMMON NORMALS: patient oriented x3, moves all extremities and no focal motor deficits Psych: COMMON NORMALS: mental status grossly normal, Normal thought process present and cooperative THOUGHT PROCESS: Normal thought process present Skin: COMMON NORMALS: no rashes or lesions noted and no wounds GENERAL SKIN EXAM: no rashes or lesions noted Course 2 Vital Signs: Vital signs: Vital Signs Temperature 100.5 F H 09/03/23 21:25 Pulse Rate 109 H 09/03/23 22:21 Respiratory Rate 19 H 09/03/23 22:21 Blood Pressure 121/90 09/03/23 22:21 Pulse Oximetry 97 09/03/23 22:21 Oxygen Delivery Me thod Nasal Cannula 09/03/23 22:21 Oxygen Flow Rate 4 09/03/23 22:21 MDM - Fever Medical Decision Making Patient presents here with a fever he has a history of Hodgkin's as well he recently discussed with ICU here blood work here is normal x-ray is improving spoke to hospitalist will admit at this time following blood cultures did give him IV antibiotics. Medical Records I reviewed the patient's medical records. Lab Data I reviewed the patient's lab results. 09/03/23 22:18 09/03/23 22:18 Radiology Impressions Chest X-Ray 09/03/23 21:33 IMPRESSION: 1. Interval improvement in the degree of airspace consolidation in the right perihilar/upper and middle lobes since 08/30/2023. Moderately extensive bilateral airspace opacities remain bilaterally. 2. Small bilateral pleural effusions. Low lung volumes. Numerous lung nodules again demonstrated. Laboratory Results WBC 6.32 10^3/uL (3.29-11.43) 09/03/23 22:18 RBC 3.64 10^6/uL (3.85-5.65) L 09/03/23 22:18 Hgb 8.40 g/dL (11.27-16.99) L 09/03/23 22:18 Hct 28.5 % (37-53) L 09/03/23 22:18 MCV 78.3 fl (82-101) L 09/03/23 22:18 MCH 23.1 pg (27-33) L 09/03/23 22:18 MCHC 29.5 g/dL (30-55) L 09/03/23 22:18 RDW 18.6 % (12.1-15.1) H 09/03/23 22:18 Plt Count 222 10^3/cmm (157-399) 09/03/23 22:18 MPV 8.8 fL (7.4-10.4) 09/03/23 22:18 Neut % (Auto) 85.5 % 09/03/23 22:18 Lymph % (Auto) 10.3 % 09/03/23 22:18 [place] % (Auto) 0.9 % 09/03/23 22:18 Eos % (Auto) 1.9 % 09/03/23 22:18 Baso % (Auto) 0.3 % 09/03/23 22:18 Neut # (Auto) 5.40 10^3/uL (1.8-7.7) 09/03/23 22:18 Lymph # (Auto) 0.7 10^3/uL (0.8-4.8) L 09/03/23 22:18 [place] # (Auto) 0.1 10^3/uL (0.2-0.9) L 09/03/23 22:18 Eos # (Auto) 0.1 10^3/uL (0.0-0.8) 09/03/23 22:18 Baso # (Auto) 0.0 10^3/uL (0.0-0.1) 09/03/23 22:18 Nucleated RBC % (auto) 0 % 09/03/23 22:18 Nucleated RBCs # 0.0 /100WBC 09/03/23 22:18 Specimen Type Arterial 09/03/23 22:02 Sample Site Brachial, left 09/03/23 22:02 ABG pH 7.47 (7.35-7.45) H 09/03/23 22:02 ABG pCO2 43.4 mmHg (35-45) 09/03/23 22:02 ABG pO2 89.0 mmHg (80.0-100.0) 09/03/23 22:02 ABG PO2/FiO2 Ratio 0 09/03/23 22:02 ABG HCO3 31.7 mmol/L (22-26) H 09/03/23 22:02 ABG Base Excess 7.3 mmol/L (-2.0-2.0) H 09/03/23 22:02 Juan C Test N/a 09/03/23 22:02 Hematocrit 25.8 % (42-52) L 09/03/23 22:02 O2 Delivery Device Nc 09/03/23 22:02 O2 Liters/Min 4.0 % 09/03/23 22:02 FiO2 36.0 % 09/03/23 22:02 Tape Sewer ID Nadia 09/03/23 22:02 Sodium 133 mmol/L (136-145) L 09/03/23 22:18 Potassium 4.0 mmol/L (3.5-5.1) 09/03/23 22:18 Chloride 96 mmol/L (98-107) L 09/03/23 22:18 Carbon Dioxide 29 mmol/L (22-29) 09/03/23 22:18 Anion Gap 12.0 (5-19) 09/03/23 22:18 BUN 6 mg/dL (6-20) 09/03/23 22:18 Creatinine 0.4 mg/dL (0.7-1.2) L 09/03/23 22:18 GFR Calculation 264.3 mL/min (90-130) H 09/03/23 22:18 Glucose 97 mg/dL (65-115) 09/03/23 22:18 Calculated Osmolality 274 mOsm/kg (285-295) L 09/03/23 22:18 Calcium 7.6 mg/dL (8.5-10.5) L 09/03/23 22:18 Magnesium 2.0 mg/dL (1.7-2.3) 09/03/23 22:18 Total Bilirubin 0.3 mg/dL (0.15-1.2) 09/03/23 22:18 AST 20 U/L (0-40) 09/03/23 22:18 ALT 26 U/L (0-41) 09/03/23 22:18 Alkaline Phosphatase 110 U/L (40-130) 09/03/23 22:18 NT-Pro-B Natriuret Pep 426 pg/mL (0-125) H 09/03/23 22:18 Total Protein 5.5 g/dL (6.6-8.7) L 09/03/23 22:18 Albumin 2.9 g/dL (3.5-5.2) L 09/03/23 22:18 Globulin 2.6 g/dL (1.3-4.6) 09/03/23 22:18 Urine Color Light yellow (Yellow) 09/03/23 22:46 Urine Appearance Clear (CLEAR) 09/03/23 22:46 Urine pH 9 (5-7) H 09/03/23 22:46 Ur Specific [place] 1.015 (1.005-1.030) 09/03/23 22:46 Urine Protein Neg (Negative) 09/03/23 22:46 Urine Glucose (UA) Norm (Normal) 09/03/23 22:46 Urine Ketones Negative (Negative) 09/03/23 22:46 Urine Blood Neg (Negative) 09/03/23 22:46 Urine Nitrate Negative (Negative) 09/03/23 22:46 Urine Bilirubin Neg (Negative) 09/03/23 22:46 Prot Sulfosalicylic Acd Negative (Negative) 09/03/23 22:46 Urine Urobilinogen Neg mg/dL (Negative) 09/03/23 22:46 Ur Leukocyte Esterase Negative (Negative) 09/03/23 22:46 Influenza Type A Ag negative (Negative) 09/03/23 21:46 Influenza Type B Ag negative (Negative) 09/03/23 21:46 SARS-CoV-2 Ag (Rapid) negative (Negative) 09/03/23 21:46 All radiology interpretation(s) finalized by discharge EKG Data EKG 1: I personally reviewed and interpreted this EKG as follows: EKG interpretation date: 09/03/23 EKG interpretation time: 21:39 Interpretation: sinus tach hr [address] or t wave abnormalities qrs 78 qtc 363 Discharge Plan Discharge Patient Disposition: Admitted As Inpatient Clinical Impression: Fever of unknown origin Condition: Stable Prescriptions: No Action acetaminophen 500 mg capsule 500 mg PO Q6H PRN (Reason: Pain) lidocaine-prilocaine 2.5-2.5 % cream 1 applic topical .COMPLEX Qty: 30 3RF Rx Instructions: Apply quarter size amount 30-45 minutes prior to port access, cover with cellophane lorazepam 1 mg tablet 0.5 - 1 mg PO Q6H PRN (Reason: Severe Nausea) Qty: 30 3RF allopurinol 300 mg tablet 300 mg PO DAILY Qty: 30 0RF albuterol sulfate [Ventolin HFA] 90 mcg/actuation HFA aerosol inhaler 2 puff inhalation QID Qty: 6.7 0RF benzonatate 200 mg capsule 200 mg PO TID Qty: 90 0RF oxycodone 10 mg tablet 10 mg PO Q4H PRN (Reason: pain) 30 Days Qty: 120 0RF ondansetron HCl 4 mg Tablet 4 mg PO QID PRN (Reason: Nausea/vomiting) Qty: 30 3RF prochlorperazine maleate [Compazine] 10 mg tablet 10 mg PO Q4H PRN (Reason: Mild Nausea) Qty: 30 3RF Lasix 20 mg tablet 20 mg PO DAILY PRN (Reason: edema) Qty: 60 2RF potassium chloride 10 mEq tablet extended release 10 meq PO .As needed PRN (Reason: edema) Qty: 30 1RF Rx Instructions: Only take 1 pill when you take Lasix albuterol sulfate 90 mcg/actuation HFA aerosol inhaler 2 inh inhalation Q8H PRN (Reason: shortness of breath or wheezing) Qty: 6.7 3RF ondansetron 4 mg tablet,disintegrating 4 mg PO Q6H PRN (Reason: NAUSEA/VOMITING) Referrals: Enrrique Fuller MD [Primary Care Provider] - Coding Level of Care Code ED Civil Celebrant for Bekah Sahu
--- NOTE | 2023-09-03 21:39 | ECG_ITS ---
[facility] Test Date: 2023-09-03 Pat Name: Naeem Juarez Department: Room: Gender: Male Sanitation Manager: : 2000 Requested By: Basim Nazario Order Number: [id number] Helen MD: Rigo Artis M.D. Measurements Intervals [place] Rate: 116 P: 7 NC: 129 QRS: 24 QRSD: 78 T: 16 QT: 294 QTc: 409 Interpretive Statements SINUS TACHYCARDIA ABNORMAL RHYTHM ECG Compared to ECG 08/30/2023 02:13:09 No significant changes Electronically Signed On 09-04-2023 10:24:14 CDT by Rigo Artis M.D. [id number]
[2023-09-03] MEDS: acetaminophen 500 mg Tablet 1000 MG PO (21:47)
[2023-09-03] MEDS: sodium chloride 0.9% 1,000 ML 999 ML IV (21:52)
[2023-09-03 22:16] LABS: ABG PCO2 43.4 mmHg (35-45); ABG PH Result 7.47 (7.35-7.45); Arterial Blood Gas Hematocrit 25.8 % (42-52); Base Excess ABG 7.3 mmol/L (-2.0-2.0); Blood Gas Sample Site Brachial, left; Blood Gas Sample Type Arterial; HCO3 ABG 31.7 mmol/L (22-26); Oxygen Device NC; PO2 FiO2 Ratio Arterial Blood 0
[2023-09-03 22:21] VITALS: BP 121/90; PULSE 109; RESP 19; O2SAT 97
[2023-09-03 22:27] LABS: Influenza A by IFA negative (Negative); Influenza B by IFA negative (Negative)
[2023-09-03 22:28] LABS: SARS Covid-2 Antigen negative (Negative)
[2023-09-03 22:30] VITALS: BP 135/79; PULSE 101; RESP 20; O2SAT 99
[2023-09-03 22:33] LABS: Basophils % 0.3 %; Eosinophils # 0.1 10^3/uL (0.0-0.8); Eosinophils % 1.9 %; Hematocrit 28.5 % (37-53); Lymphocytes # 0.7 10^3/uL (0.8-4.8); Lymphocytes % 10.3 %; Mean Corpuscular HGB Conc 29.5 g/dL (30-55); Mean Corpuscular Hemoglobin 23.1 pg (27-33); Mean Corpuscular Volume 78.3 fl (82-101); Mean Platelet Volume 8.8 fL (7.4-10.4); Monocytes # 0.1 10^3/uL (0.2-0.9); Monocytes % 0.9 %; Neutrophils % 85.5 %; Nucleated Red Blood Cells % 0 %; Platelet Count 222 10^3/cmm (157-399); Red Blood Count 3.64 10^6/uL (3.85-5.65); Red Cell Distribution Width 18.6 % (12.1-15.1); White Blood Count 6.32 10^3/uL (3.29-11.43)
[2023-09-03] MEDS: vancomycin 1,000 MG in sodium chloride 0.9% 250 ML 250 MG IV (22:43)
[2023-09-03] MEDS: piperacillin-tazobactam 3.375 GM in sodium chloride 0.9% (plus) 50 ML IV (22:43)
[2023-09-03 22:54] LABS: Add Urine Microscopic? NO; Charge for UA Resulting for Rev
[2023-09-03 23:00] VITALS: BP 135/79; PULSE 102; RESP 20; O2SAT 98
[2023-09-03 23:00] LABS: Bilirubin Urine Neg (Negative); Blood Urine Neg (Negative); Glucose Urine UA Norm (Normal); Ketones Urine Negative (Negative); Leukocyte Esterase Urine Negative (Negative); Nitrate Urine Negative (Negative); Protein Urine Neg (Negative); Specific Gravity, Urine 1.015 (1.005-1.030); Sulfosalicylic Acid Urine Negative (Negative); Urine Appearance Clear (CLEAR); Urine Color Light yellow (Yellow); Urobilinogen Urine Neg (Negative); pH Urine 9 (5-7)
[2023-09-03 23:00] LABS: Alanine Aminotransferase 26 U/L (0-41); Albumin Level 2.9 g/dL (3.5-5.2); Alkaline Phosphatase 110 U/L (40-130); Aspartate Amino Transferase 20 U/L (0-40); Blood Urea Nitrogen 6 mg/dL (6-20); Calcium 7.6 mg/dL (8.5-10.5); Carbon Dioxide 29 mmol/L (22-29); Chloride 96 mmol/L (98-107); Creatinine Clr Calc Pharmacy 364.6718; Globulin 2.6 g/dL (1.3-4.6); Glomerular Filtration Rate 264.3 mL/min (90-130); Glucose 97 mg/dL (65-115); NT Pro B Type Natriuretic Pept 426 pg/mL (0-125); Osmolality Calculated 274 mOsm/kg (285-295); Sodium 133 mmol/L (136-145); Total Bilirubin 0.3 mg/dL (0.15-1.2); Total Protein 5.5 g/dL (6.6-8.7)
[2023-09-03 23:37] VITALS: BP 124/68; PULSE 100; RESP 18; TEMP 36.9; O2SAT 96; BMI 34.9
[2023-09-03 23:44] VITALS: BP 153/79; PULSE 103; RESP 21; TEMP 37.6; O2SAT 98
[2023-09-04] VITALS (23 sets, daily range): BP systolic 114–153; BP diastolic 54–89; PULSE 102–116; RESP 16–18; TEMP 36.7–39; O2SAT 95–99; BMI 34.9
[2023-09-04 03:08] LABS: Lactic Sepsis W/Reflex 0.8 mmol/L (0.5-2.2)
--- NOTE | 2023-09-04 03:32 | P.HP_ITS ---
Providers/Chief Complaint 2 Admitting Physician: Kyree Bañuelos MD Primary Care Provider: Enrrique Fuller MD Chief Complaint: fever History of Present Illness Naeem Juarez is a 22 year old male with a diagnosis of Hodgkin's lymphoma diagnosed in July 2023 presenting as multiple pulmonary nodules and extensive lymphadenopathy. He started chemotherapy with nivolumab and AVD earlier this month. He was admitted to the hospital on August 29, 2023 after presenting with hypercapnic hypoxic respiratory failure. Gradually he improved with continuous use of BiPAP. Arrangements were made for BiPAP at home however patient was unable to use it consistently after discharge. She was treated with broad-spectrum antibiotics during the course of admission which was discontinued at discharge as there was no gross evidence of infection after extensive workup. CTA of the chest was negative for PE. Bilateral diffuse pulmonary nodules were noted with increased peribronchial opacities in the right middle lobe and lower lobe. There was a large volume right-sided pleural effusion for which she underwent thoracentesis on August 30, 2023. 500 cc fluid was removed. Pleural fluid Gram stain and cultures not available. Pathology showed acute and chronic inflammatory infiltrate.he was also started on Lasix on his previous admission due to signs of hypervolemia. Recent echocardiogram from August 24 showed normal LVEF of 74%, no gross regional wall motion abnormalities, trace to small pericardial effusion. He was discharged from the hospital on September 01, 2023, felt like he was improving over the next 2 days, however yesterday started developing generalized weakness, fatigue, body ache and had a fever up to 102 Fahrenheit. Mother reports that his cough appears to be increased compared to previously, minimal expectoration. No hemoptysis. 3 episodes of diarrhea yesterday. No abdominal pain or nausea. Port site without any obvious changes. No new rashes. Review of Systems 2 General: Reports: 10 or more systems reviewed and unremarkable except in HPI and below Const: Denies: fever(s), chills or body aches Eyes: Denies: change in vision, blurry vision or photophobia ENMT: Reports: hoarseness; Denies: throat pain, enlarged tonsils, odynophagia or nasal congestion Card: Denies: chest pain, palpitations, irregular heart rhythm, edema, swelling of feet/ankles, lightheadedness, pre-syncope, dyspnea on exertion or orthopnea Resp: Denies: dyspnea, productive cough, non-productive cough, wheezing, stridor, pain on inspiration, change in phlegm color, hemoptysis or chest congestion GI: Denies: abdominal pain, nausea, vomiting, hematemesis, coffee ground emesis, dysphagia, heartburn, diarrhea, constipation, GI cramping, change in stool character, hematochezia or melena : Denies: flank pain, dysuria, urinary frequency, urinary urgency, urinary hesitancy or hematuria Musc: Denies: neck pain, back pain, extremity pain, joint swelling, joint warmth or deformity Neuro: Denies: headache(s), numbness in extremities, weakness in extremities, sensory changes, difficulty walking, frequent falls, dizziness, vertigo, behavioral changes, Slurred speech present or seizure-like activity Psych: Denies: anxiety, depression, suicidal ideation or homicidal ideation Endo: Denies: polyuria, polydipsia, tired all the time, cold intolerance or hot flashes [place]/Lymph: Denies: easy bruising or easy bleeding Medications/Allergies Home Medications Medication Instructions Recorded Confirmed Last Taken Type albuterol sulfate 90 mcg/actuation 2 puff inhalation QID #6.7 grams 04/25/23 09/03/23 08/19/23 Rx aerosol inhaler (Ventolin HFA) acetaminophen 500 mg capsule 500 mg PO Q6H PRN Pain 08/11/23 09/03/23 3 Weeks Ago History ~08/02/23 ondansetron 4 mg disintegrating 4 mg PO Q6H PRN NAUSEA/VOMITING 08/15/23 09/03/23 2 Weeks Ago History tablet ~08/09/23 oxycodone 10 mg tablet 10 mg PO Q4H PRN pain 30 days #120 08/17/23 09/03/23 08/29/23 08:00 Rx tabs ondansetron HCl 4 mg tablet 4 mg PO QID PRN Nausea/vomiting 08/26/23 09/03/23 Unknown Rx #30 tabs lidocaine-prilocaine 2.5 %-2.5 % 1 applic topical .COMPLEX #30 grams 08/29/23 09/03/23 Unknown Rx topical cream albuterol sulfate 90 mcg/actuation 2 inh inhalation Q8H PRN shortness 09/01/23 09/03/23 Unknown Rx aerosol inhaler of breath or wheezing #6.7 grams furosemide 20 mg tablet (Lasix) 20 mg PO DAILY PRN edema #60 tabs 09/01/23 09/03/23 09/03/23 11:30 Rx potassium chloride 10 mEq 10 meq PO .As needed PRN edema #30 09/01/23 09/03/23 09/03/23 11:30 Rx tablet,extended release tabs benzonatate 200 mg capsule 200 mg PO TID PRN Cough 09/03/23 09/03/23 09/03/23 16:30 History pantoprazole 40 mg tablet,delayed 40 mg PO DAILY 09/04/23 09/04/23 09/03/23 11:30 History release (Protonix) Allergies Allergy/AdvReac Type Severity Reaction Status Date / Time No Known Allergies Allergy Verified 09/03/23 21:33 PFSH Acute 2 PFSH: Medical History Lymphedema Acute hypoxic on chronic hypercapnic respiratory failure Nodular sclerosis Hodgkin lymphoma, unspecified site Metastasis to lung Mass of left axilla Bronchitis Chronic coughing Neutrophilic leukocytosis Hepatosplenomegaly Abnormal abdominal ultrasound Excessive weight loss Last 110 pounds in last 6 to 8 weeks Allergic rhinitis due to allergen Obesity (BMI 30-39.9) Anxiety and depression GERD (gastroesophageal reflux disease) No pertinent past medical history Surgical History No pertinent past surgical history Family History Father Stroke Hypertension Mother Thyroid disease Social History Smoking and tobacco/nicotine status: former use of tobacco/nicotine Quit status (tobacco/nicotine): has quit using Year quit tobacco: 2021 Former quit date comment: 2 years vaping Alcohol intake: never Substance/Drug Use: never Vitals/I&O/Wt Last Vital Signs Temp 99.6 F 09/03/23 23:44 Pulse 103 H 09/03/23 23:44 Resp 21 H 09/03/23 23:44 BP 153/79 09/03/23 23:44 Pulse Ox 98 09/03/23 23:44 O2 Del Method Nasal Cannula 09/04/23 00:03 O2 Flow Rate 4 09/03/23 23:37 09/03/23 09/03/23 09/04/23 14:59 22:59 07:59 Intake Total 1300 / 1300 Balance 1300 / 1300 Weight last 48 hrs Weight 113.398 kg Physical Exam 2 Narrative: General: No acute distress, AO x3, appears pale and tired. HEENT: PERRLA, pupils bilaterally equal and reactive, pallors not present Chest: Normal vesicular breath sounds, no added sounds, equal good air entry bilaterally CVS: S1-S2 regular, no murmurs, no tachycardia, no gallops, no rubs Abdomen: Soft, nontender, no organomegaly, bowel sounds present Neuro: No focal deficits, no facial deformity, AO x3, power 5/5 in all limbs Extremities: No edema clubbing or cyanosis Data 09/03/23 22:18 09/03/23 22:18 Other Labs: Radiology Impressions Chest X-Ray 09/03/23 21:33 IMPRESSION: 1. Interval improvement in the degree of airspace consolidation in the right perihilar/upper and middle lobes since 08/30/2023. Moderately extensive bilateral airspace opacities remain bilaterally. 2. Small bilateral pleural effusions. Low lung volumes. Numerous lung nodules again demonstrated. Laboratory Results WBC 6.32 10^3/uL (3.29-11.43) 09/03/23 22:18 RBC 3.64 10^6/uL (3.85-5.65) L 09/03/23 22:18 Hgb 8.40 g/dL (11.27-16.99) L 09/03/23 22:18 Hct 28.5 % (37-53) L 09/03/23 22:18 MCV 78.3 fl (82-101) L 09/03/23 22:18 MCH 23.1 pg (27-33) L 09/03/23 22:18 MCHC 29.5 g/dL (30-55) L 09/03/23 22:18 RDW 18.6 % (12.1-15.1) H 09/03/23 22:18 Plt Count 222 10^3/cmm (157-399) 09/03/23 22:18 MPV 8.8 fL (7.4-10.4) 09/03/23 22:18 Neut % (Auto) 85.5 % 09/03/23 22:18 Lymph % (Auto) 10.3 % 09/03/23 22:18 [place] % (Auto) 0.9 % 09/03/23 22:18 Eos % (Auto) 1.9 % 09/03/23 22:18 Baso % (Auto) 0.3 % 09/03/23 22:18 Neut # (Auto) 5.40 10^3/uL (1.8-7.7) 09/03/23 22:18 Lymph # (Auto) 0.7 10^3/uL (0.8-4.8) L 09/03/23 22:18 [place] # (Auto) 0.1 10^3/uL (0.2-0.9) L 09/03/23 22:18 Eos # (Auto) 0.1 10^3/uL (0.0-0.8) 09/03/23 22:18 Baso # (Auto) 0.0 10^3/uL (0.0-0.1) 09/03/23 22:18 Nucleated RBC % (auto) 0 % 09/03/23 22:18 Nucleated RBCs # 0.0 /100WBC 09/03/23 22:18 Specimen Type Arterial 09/03/23 22:02 Sample Site Brachial, left 09/03/23 22:02 ABG pH 7.47 (7.35-7.45) H 09/03/23 22:02 ABG pCO2 43.4 mmHg (35-45) 09/03/23 22:02 ABG pO2 89.0 mmHg (80.0-100.0) 09/03/23 22:02 ABG PO2/FiO2 Ratio 0 09/03/23 22:02 ABG HCO3 31.7 mmol/L (22-26) H 09/03/23 22:02 ABG Base Excess 7.3 mmol/L (-2.0-2.0) H 09/03/23 22:02 Juan C Test N/a 09/03/23 22:02 Hematocrit 25.8 % (42-52) L 09/03/23 22:02 O2 Delivery Device Nc 09/03/23 22:02 O2 Liters/Min 4.0 % 09/03/23 22:02 FiO2 36.0 % 09/03/23 22:02 Applications Trainer ID Nadia 09/03/23 22:02 Sodium 133 mmol/L (136-145) L 09/03/23 22:18 Potassium 4.0 mmol/L (3.5-5.1) 09/03/23 22:18 Chloride 96 mmol/L (98-107) L 09/03/23 22:18 Carbon Dioxide 29 mmol/L (22-29) 09/03/23 22:18 Anion Gap 12.0 (5-19) 09/03/23 22:18 BUN 6 mg/dL (6-20) 09/03/23 22:18 Creatinine 0.4 mg/dL (0.7-1.2) L 09/03/23 22:18 GFR Calculation 264.3 mL/min (90-130) H 09/03/23 22:18 Glucose 97 mg/dL (65-115) 09/03/23 22:18 Calculated Osmolality 274 mOsm/kg (285-295) L 09/03/23 22:18 Lactic Acid 0.8 mmol/L (0.5-2.2) 09/03/23 22:18 Calcium 7.6 mg/dL (8.5-10.5) L 09/03/23 22:18 Magnesium 2.0 mg/dL (1.7-2.3) 09/03/23 22:18 Total Bilirubin 0.3 mg/dL (0.15-1.2) 09/03/23 22:18 AST 20 U/L (0-40) 09/03/23 22:18 ALT 26 U/L (0-41) 09/03/23 22:18 Alkaline Phosphatase 110 U/L (40-130) 09/03/23 22:18 NT-Pro-B Natriuret Pep 426 pg/mL (0-125) H 09/03/23 22:18 Total Protein 5.5 g/dL (6.6-8.7) L 09/03/23 22:18 Albumin 2.9 g/dL (3.5-5.2) L 09/03/23 22:18 Globulin 2.6 g/dL (1.3-4.6) 09/03/23 22:18 Urine Color Light yellow (Yellow) 09/03/23 22:46 Urine Appearance Clear (CLEAR) 09/03/23 22:46 Urine pH 9 (5-7) H 09/03/23 22:46 Ur Specific [place] 1.015 (1.005-1.030) 09/03/23 22:46 Urine Protein Neg (Negative) 09/03/23 22:46 Urine Glucose (UA) Norm (Normal) 09/03/23 22:46 Urine Ketones Negative (Negative) 09/03/23 22:46 Urine Blood Neg (Negative) 09/03/23 22:46 Urine Nitrate Negative (Negative) 09/03/23 22:46 Urine Bilirubin Neg (Negative) 09/03/23 22:46 Prot Sulfosalicylic Acd Negative (Negative) 09/03/23 22:46 Urine Urobilinogen Neg mg/dL (Negative) 09/03/23 22:46 Ur Leukocyte Esterase Negative (Negative) 09/03/23 22:46 Influenza Type A Ag negative (Negative) 09/03/23 21:46 Influenza Type B Ag negative (Negative) 09/03/23 21:46 SARS-CoV-2 Ag (Rapid) negative (Negative) 09/03/23 21:46 CT/CT angio chest w abd pel w con IMPRESSION: Negative for pulmonary artery embolism. IMPRESSION: 1. Negative for acute abdominopelvic pathology. 2. No significant overall change in the metastatic disease. Dictated By: Rigo Gipson Signed By: Rigo Gipson Signed Date/Time: 08/30/23 0240 Micro: Microbiology 09/03/23 22:18 Blood Culture - Preliminary Blood SPECIMEN COLLECTED 09/03/23 21:48 Blood Culture - Preliminary Blood SPECIMEN COLLECTED ABG Interpretation 1: 09/03/23 22:02 ABG pH 7.47 H ABG pCO2 43.4 ABG pO2 89.0 ABG HCO3 31.7 H ABG Base Excess 7.3 H A&P Assessment and plan (1) Fever: Qualifiers: Fever type: unspecified Qualified Code(s): R50.9 - Fever, unspecified (2) Immunocompromised patient: Plan 22-year-old male with Hodgkin's lymphoma, recently started chemotherapy with AVD plus nivolumab, recent admission for hypoxic hypercapnic respiratory failure and large right-sided pleural effusion status post thoracentesis. Presents today after recent discharge on September 01, 2023 for fever malaise fatigue and new onset of diarrhea. COVID-19 antigen negative. Will check expanded respiratory viral panel. Blood cultures taken in the emergency room, currently pending. Chest x-ray today showing persistent pulmonary infiltrates which are likely to represent the known malignant process, pleural effusion improved over previously. ABG today without signs of hypoxia or hypercapnia Given new onset diarrhea, check stool C. difficile PCR since he had been on broad-spectrum antibiotics recently Check MRSA nasal screen; possibility of partially treated pneumonia not excluded at this time as he reports worsening in his cough and expectoration. Check sputum culture and Gram stain. There is no gross leukocytosis, however in immunocompromised patient would not be expected to mount a florid immune response. UA unremarkable Empiric treatment with piperacillin/tazobactam and vancomycin while pending results of above pending testing. Continue BiPAP at nighttime Continue oxycodone 10 mg p.o. every 4 hours as needed for pain management. Anemia, hemoglobin unchanged over recent baseline. No gross signs of bleeding. Likely related to recent chemotherapy. check iron studies: DVT prophylaxis: Lovenox 40 Full code Attestations 2 Medical Necessity Statement*: Greater than 2 midnight stay is anticipated for evaluation of fever in immunocompromised patient with recent admission for respiratory failure Coding Level of Care Code Acute Code for Chg Fwd Diagnoses Fever, unspecified fever cause R50.9 Fever type: unspecified Immunocompromised patient D84.9
[2023-09-04] MEDS: enoxaparin 40 mg/0.4 mL Syringe SUBCUT (04:02)
[2023-09-04] MEDS: piperacillin-tazobactam 3.375 GM in sodium chloride 0.9% (plus) 50 ML IV ×3 (04:32→21:44)
[2023-09-04] MEDS: acetaminophen 325 mg Tablet 650 MG PO (04:56)
[2023-09-04 07:26] LABS: Basophils % 0.4 %; Eosinophils # 0.1 10^3/uL (0.0-0.8); Hematocrit 27.1 % (37-53); Lymphocytes # 0.6 10^3/uL (0.8-4.8); Lymphocytes % 10.2 %; Mean Corpuscular HGB Conc 29.2 g/dL (30-55); Mean Corpuscular Volume 78.8 fl (82-101); Mean Platelet Volume 8.8 fL (7.4-10.4); Monocytes # 0.1 10^3/uL (0.2-0.9); Monocytes % 1.3 %; Neutrophils # 4.58 10^3/uL (1.8-7.7); Neutrophils % 84.8 %; Nucleated Red Blood Cells % 0 %; Platelet Count 186 10^3/cmm (157-399); Red Blood Count 3.44 10^6/uL (3.85-5.65); Red Cell Distribution Width 18.6 % (12.1-15.1)
[2023-09-04] MEDS: albuterol 2.5 mg/3 mL Neb INHALATION ×3 (07:29→20:31)
[2023-09-04] MEDS: oxyCODONE 5 mg IR Tab/Cap 10 MG PO ×3 (07:31→19:51)
[2023-09-04 07:58] LABS: Slide Review Slide Review Perform
[2023-09-04 08:15] LABS: Adenovirus Not Detected (NOT DETECT); Chlamydia Pneumoniae Not Detected (NOT DETECT); Coronavirus 229E,HKU1,NL63,OC4 Not Detected (NOT DETECT); Human Metapneumovirus Not Detected (NOT DETECT); Human Rhinovirus/Enterovirus Not Detected (NOT DETECT); Influenza A Not Detected (NOT DETECT); Influenza A H1 Not Detected (NOT DETECT); Influenza A H1-2009 Not Detected (NOT DETECT); Influenza A H3 Not Detected (NOT DETECT); Influenza B Not Detected (NOT DETECT); Mycoplasma Pneumoniae Not Detected (NOT DETECT); Parainfluenza Virus Type 1 Not Detected (NOT DETECT); Parainfluenza Virus Type 2 Not Detected (NOT DETECT); Parainfluenza Virus Type 3 Not Detected (NOT DETECT); Parainfluenza Virus Type 4 Not Detected (NOT DETECT); Respiratory Syncytial Virus A Not Detected (NOT DETECT); Respiratory Syncytial Virus B Not Detected (NOT DETECT); SARS-COV-2 Not Detected (NOT DETECT)
[2023-09-04 08:18] LABS: Ferritin 834 ng/mL (30-400); Iron 9 ug/dL (59-158); Percent Saturation 5.1 % (20-50); Total Iron Binding Capacity 174 mcg/dl; Unsaturated Iron Binding 165 ug/dL (112-347); Vitamin B12 334 pg/mL (232-1245)
[2023-09-04] MEDS: pantoprazole DR 40 mg Tablet PO (08:49)
--- NOTE | 2023-09-04 11:44 | W.PM.EVENTAC ---
Event Note Event Note: Patient is feeling better No fever this morning Hemoglobin 7.9 Considering his age I will like to give him 1 bag of iron, may need PRBC if hemoglobin drops below 7 believe this is chemotherapy-induced bone marrow suppression Patient is endorsing night sweats, this time he is spiking fever Thoracentesis done during last admission not showing any positive cultures It was exudative in nature Concern for parapneumonic effusion Continue broad-spectrum antibiotics I will prescribe him BiPAP with new settings of 06/03 with FiO2 40% respiratory rate 12 Patient was not able to use BiPAP because of higher pressure settings Compensated pH He was scheduled to see Dr. Baldwin Tuesday, please inform Dr. Baldwin as well on Tuesday He does have lymphopenia no sign of neutropenia Lactic acid is normal He has iron deficiency anemia Check FOBT Fluid overload preserve ejection fraction heart failure exacerbation BNP is high
[2023-09-04] MEDS: vancomycin 2,000 MG/400 ML PIGGYBACK 200 MG IV (12:02)
[2023-09-04 12:04] LABS: Reticulocyte % 0.3 % (0.5-2.0)
[2023-09-04] MEDS: ketorolac 30 mg/mL INJ 15 MG IVP ×3 (12:07→23:21)
[2023-09-04 12:45] LABS: Lactate Dehydrogenase 145 U/L (135-225)
[2023-09-04 13:00] LABS: Vitamin B12 351 pg/mL (232-1245)
[2023-09-04] MEDS: iron sucrose 200 MG in sodium chloride 0.9% (100 ml) 100 ML 220 MG IV (13:27)
--- NOTE | 2023-09-04 20:37 | CTR_ITS ---
PROCEDURE INFORMATION: Exam: CT Chest With Contrast; Diagnostic Exam date and time: 09/04/2023 8:18 PM Age: 22 years old Clinical indication: Shortness of breath; Prior surgery; Surgery date: 6+ months; Surgery type: Chest port; Patient HX: Fever with SOB and anemia. 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 TECHNIQUE: Imaging protocol: Diagnostic computed tomography of the chest with contrast. Sagittal and coronal reformatted images were created and reviewed. Radiation optimization: All CT scans at this facility use at least one of these dose optimization techniques: automated exposure control; mA and/or kV adjustment per patient size (includes targeted exams where dose is matched to clinical indication); or iterative reconstruction. Contrast material: OMNI 350; Contrast volume: 100 ml; Contrast route: INTRAVENOUS (IV); COMPARISON: CT angio chest w abd pel w con 08/30/2023 1:11 AM RADIATION DOSE METRICS: Total DLP (mGy-cm): 1583.53 FINDINGS: Tubes, catheters and devices: Left internal jugular Port-A-Cath is stable in position with the tip in the lower superior vena cava. Trachea: Tracheobronchial structures are patent. Lungs: Stable smooth interlobular septal thickening in the right upper lobe and right lower lobe that may represent asymmetric pulmonary edema versus lymphangitic spread of tumor. Numerous bilateral pulmonary nodules have decreased in size. The largest is in the left lung apex and measures 2.1 x 2.2 cm, previously measured 3.3 x 3.5 cm (series 4, image 14). Mild to moderate narrowing of the right and left mainstem bronchi and all lobar bronchi bilaterally, decreased compared with the previous study. There is improving alveolar airspace disease bilaterally with multiple foci of patchy opacification again seen in both lungs. Pleural spaces: Large right and small/moderate left pleural effusions have mildly increased in size. Pleural fluid on the left extends along the left major fissure. No pneumothorax. Heart: Stable mild enlargement of the heart. Esophagus: The esophagus is unremarkable. Mediastinal space: No mediastinal hematoma. No pneumomediastinum. Lymph nodes: Redemonstration of extensive lymphadenopathy in the lower neck and chest.Mild degenerative changes in the visualized spine. Bilateral supraclavicular and axillary lymphadenopathy has decreased in size. The largest lymph node is in the left axilla and now measures 2.3 x 4.6 cm, previously measured 3.8 x 5.3 cm (series 3, image 14). Improvement of mediastinal and bilateral lymphadenopathy as well. The largest lymph node in the mediastinum is in the subcarinal region and now measures 3.1 x 4.6 cm, previously measured 5.0 x 6.1 cm (series 3, image 32). Largest right hilar lymph node now measures 4.1 x 3.0 cm, previously measured 6.1 x 5.2 cm (series 3, image 30). Largest left hilar lymph node now measures 3.0 x 2.6 cm, previously measured 3.7 x 3.9 cm (series 3, image 29). Vasculature: No evidence for aortic aneurysm or aortic dissection. Pulmonary arteries are unremarkable. Pulmonary veins are unremarkable. Bones/joints: No lytic or sclerotic bony lesions. Multiple old right rib fractures. Soft tissues: Mild body wall edema, decreased compared with the previous study. PROCEDURE INFORMATION: Exam: CT Abdomen And Pelvis With Contrast Exam date and time: 09/04/2023 8:18 PM Age: 22 years old Clinical indication: Shortness of breath; Prior surgery; Surgery date: 6+ months; Surgery type: Chest port; Patient HX: Fever with SOB and anemia. 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 TECHNIQUE: Imaging protocol: Computed tomography of the abdomen and pelvis with contrast. Sagittal and coronal reformatted images were created and reviewed. Radiation optimization: All CT scans at this facility use at least one of these dose optimization techniques: automated exposure control; mA and/or kV adjustment per patient size (includes targeted exams where dose is matched to clinical indication); or iterative reconstruction. Contrast material: OMNI 350; Contrast volume: 100 ml; Contrast route: INTRAVENOUS (IV); COMPARISON: CT angio chest w abd pel w con 08/30/2023 1:11 AM RADIATION DOSE METRICS: Total DLP (mGy-cm): 1583.53 FINDINGS: Liver: The liver is moderately enlarged measuring 22.0 cm in length, previously measured 20.1 cm (series 11, image 54). No focal hepatic lesion. Gallbladder and bile ducts: The gallbladder is unremarkable. No biliary ductal dilatation. Pancreas: The pancreas is unremarkable. No pancreatic ductal dilatation. Spleen: Stable ill-defined low-density lesion in the spleen measuring 9.9 x 6.6 mm (series 5, image 30). The spleen is now mildly enlarged measuring 13.3 cm in length, previously measured 11.9 cm (series 11, image 19). Adrenal glands: The right and left adrenal glands are unremarkable. Kidneys and ureters: Stable findings of a horseshoe kidney. Stable dilatation of the superior pole calices in the right kidney with multiple nonobstructing stones, the largest measures 1.2 x 1.8 cm (series 5, image 39). The right and left ureters are unremarkable. Stomach and bowel: No acute abnormality in the colon. No acute abnormality in the small bowel. Ingested contents in the stomach. Appendix: The appendix is visualized and is unremarkable. No findings to suggest acute appendicitis. Intraperitoneal space: Small amount of free fluid in the abdomen and pelvis. No free intraperitoneal air. No loculated fluid collections to suggest an abscess. Vasculature: No evidence for aortic aneurysm or aortic dissection. Hepatic veins, portal veins, splenic vein, and SMV are patent. Lymph nodes: Enlarged celiac, avinash hepatis, and retroperitoneal lymph nodes have decreased in size. The largest in the right retroperitoneum between the aorta and inferior vena cava now measures 5.1 x 2.5 cm, previously measured 6.4 x 3.9 cm (series 5, image 36). Urinary bladder: The bladder is unremarkable for the degree of distension. Reproductive: Unremarkable as visualized. Bones/joints: Mild degenerative changes in the visualized spine. No lytic or sclerotic bony lesions. Soft tissues: Small fat-containing umbilical hernia. No evidence for strangulation. Riqj-rh-kysydydp body wall edema, decreased compared with the prior study. CT/CT chest abdpel w/*[id number] IMPRESSION: 1. Large right and small/moderate left pleural effusions have mildly increased in size. Pleural fluid on the left extends along the left major fissure. 2. Stable smooth interlobular septal thickening in the right upper lobe and right lower lobe that may represent asymmetric pulmonary edema versus lymphangitic spread of tumor. 3. Decreasing lymphadenopathy in the lower neck and chest. Mild to moderate narrowing of the right and left mainstem bronchi and all lobar bronchi bilaterally, decreased compared with the previous study. There is improving alveolar airspace disease bilaterally with multiple foci of patchy opacification again seen in both lungs. Findings suggest an improving post obstructive atelectasis and/or pneumonia. 4. Decrease in size of multiple, bilateral pulmonary nodules. 5. Left internal jugular Port-A-Cath is stable in position with the tip in the lower superior vena cava. 6. Stable mild cardiomegaly. 7. Mild body wall edema, decreased compared with the previous study. 8. Incidental/nonacute findings are listed in the report. IMPRESSION: 1. Decreasing lymphadenopathy in the abdomen and retroperitoneum. 2. Moderate hepatomegaly, the liver has increased in size. 3. Interval development of mild splenomegaly. 4. Stable small indeterminate low-density lesion in the spleen. A metastatic focus can not be ruled out. 5. Stable findings of a horseshoe kidney. 6. Stable dilatation of the superior pole calices in the right kidney with multiple nonobstructing stones, the largest measures 1.2 x 1.8 cm. 7. Small amount of free fluid in the abdomen and pelvis. 8. Xeqz-tw-awyaargy body wall edema, decreased compared with the prior study. 9. Incidental/nonacute findings are listed in the report.
[2023-09-04] MEDS: iohexol 350 mg/mL 500 mL Btl (per mL) IV (21:23)
[2023-09-05] VITALS (12 sets, daily range): BP systolic 126–149; BP diastolic 79–82; PULSE 104–117; RESP 16–18; TEMP 37.3–38.3; O2SAT 97–99
[2023-09-05] MEDS: oxyCODONE 5 mg IR Tab/Cap 10 MG PO ×2 (00:01→04:59)
[2023-09-05] MEDS: vancomycin 2,000 MG/400 ML PIGGYBACK 200 MG IV (00:02)
[2023-09-05] MEDS: enoxaparin 40 mg/0.4 mL Syringe SUBCUT (03:11)
[2023-09-05] MEDS: albuterol 2.5 mg/3 mL Neb INHALATION ×2 (03:13→07:47)
[2023-09-05] MEDS: acetaminophen 325 mg Tablet 650 MG PO ×2 (04:59→13:43)
[2023-09-05 05:01] LABS: ABG PCO2 46.7 mmHg (35-45); ABG PH Result 7.39 (7.35-7.45); Arterial Blood Gas Hematocrit 29.4 % (42-52); Base Excess ABG 2.8 mmol/L (-2.0-2.0); Blood Gas Sample Type Arterial; HCO3 ABG 28.2 mmol/L (22-26); PO2 ABG 75.4 mmHg (80.0-100.0)
[2023-09-05 05:02] LABS: Blood Gas Operator Identificat ED; Blood Gas Sample Site Brachial, right; Oxygen Device NC; PO2 FiO2 Ratio Arterial Blood 0
[2023-09-05] MEDS: ketorolac 30 mg/mL INJ 15 MG IVP ×2 (05:33→11:29)
[2023-09-05] MEDS: piperacillin-tazobactam 3.375 GM in sodium chloride 0.9% (plus) 50 ML IV (05:34)
[2023-09-05 05:43] LABS: Basophils % 0.2 %; Eosinophils # 0.2 10^3/uL (0.0-0.8); Eosinophils % 4.5 %; Hematocrit 27.4 % (37-53); Lymphocytes # 0.5 10^3/uL (0.8-4.8); Lymphocytes % 12.3 %; Mean Corpuscular HGB Conc 29.6 g/dL (30-55); Mean Corpuscular Hemoglobin 23.6 pg (27-33); Mean Corpuscular Volume 79.9 fl (82-101); Mean Platelet Volume 8.8 fL (7.4-10.4); Monocytes # 0.1 10^3/uL (0.2-0.9); Monocytes % 2.6 %; Neutrophils # 3.35 10^3/uL (1.8-7.7); Neutrophils % 79.5 %; Nucleated Red Blood Cells % 0 %; Platelet Count 173 10^3/cmm (157-399); Red Blood Count 3.43 10^6/uL (3.85-5.65); Red Cell Distribution Width 18.2 % (12.1-15.1); White Blood Count 4.22 10^3/uL (3.29-11.43)
[2023-09-05 06:07] LABS: Alanine Aminotransferase 26 U/L (0-41); Albumin Level 2.5 g/dL (3.5-5.2); Alkaline Phosphatase 119 U/L (40-130); Anion Gap 10.8 (5-19); Aspartate Amino Transferase 18 U/L (0-40); Blood Urea Nitrogen 5 mg/dL (6-20); Calcium 7.7 mg/dL (8.5-10.5); Carbon Dioxide 27 mmol/L (22-29); Chloride 99 mmol/L (98-107); Creatinine Clr Calc Pharmacy 369.3488; Glomerular Filtration Rate 264.3 mL/min (90-130); Glucose 110 mg/dL (65-115); Osmolality Calculated 274 mOsm/kg (285-295); Potassium 3.8 mmol/L (3.5-5.1); Sodium 133 mmol/L (136-145); Total Bilirubin 0.3 mg/dL (0.15-1.2); Total Protein 5.5 g/dL (6.6-8.7)
--- NOTE | 2023-09-05 09:51 | PM.DCS ---
Discharge Providers Date of Admission: 09/03/23 23:30 Date of Discharge: September 05, 2023 Attending Provider at Admission: Kyree Bañuelos MD Attending Provider at Discharge: Hilda Alaniz MD Primary Care Provider: Enrrique Fuller MD Diagnoses at Discharge Discharge Diagnosis (1) Fever: Status: Acute Qualifiers: Fever type: unspecified Qualified Code(s): R50.9 - Fever, unspecified (2) Immunocompromised patient: Status: Acute Reason for Visit Reason for Visit: fever Brief History: Naeem Juarez is a 22 year old male with a diagnosis of Hodgkin's lymphoma diagnosed in July 2023 presenting as multiple pulmonary nodules and extensive lymphadenopathy. He started chemotherapy with nivolumab and AVD earlier this month. He was admitted to the hospital on August 29, 2023 after presenting with hypercapnic hypoxic respiratory failure. Gradually he improved with continuous use of BiPAP. Arrangements were made for BiPAP at home however patient was unable to use it consistently after discharge. She was treated with broad-spectrum antibiotics during the course of admission which was discontinued at discharge as there was no gross evidence of infection after extensive workup. CTA of the chest was negative for PE. Bilateral diffuse pulmonary nodules were noted with increased peribronchial opacities in the right middle lobe and lower lobe. There was a large volume right-sided pleural effusion for which she underwent thoracentesis on August 30, 2023. 500 cc fluid was removed. Pleural fluid Gram stain and cultures not available. Pathology showed acute and chronic inflammatory infiltrate.he was also started on Lasix on his previous admission due to signs of hypervolemia. Recent echocardiogram from August 24 showed normal LVEF of 74%, no gross regional wall motion abnormalities, trace to small pericardial effusion. He was discharged from the hospital on September 01, 2023, felt like he was improving over the next 2 days, however yesterday started developing generalized weakness, fatigue, body ache and had a fever up to 102 Fahrenheit. Mother reports that his cough appears to be increased compared to previously, minimal expectoration. No hemoptysis. 3 episodes of diarrhea yesterday. No abdominal pain or nausea. Port site without any obvious changes. No new rashes. Hospital Course Hospital Course Was discharged on August 31 felt better for 2 days and then started developing generalized weakness fatigue body ache and fever up to 102. Also had 3 episodes of loose stools. No further episodes of diarrhea during hospitalization. Labs did indicate iron deficiency anemia. Hemoglobin 7.90, RDW 18.6, MCV 78.8. Patient was given 1 dose of IV iron. Reticulocyte count is low. Possible bone marrow involvement? Patient is also lymphopenic 0.6. Defer further workup to hematology oncology. Blood cultures are negative to date, sputum culture pending at this time. Patient does have a fever of unknown origin. At times low-grade. Initially on admission was 102. Did have another 100.4 overnight. Patient does have a history of night sweats. With history of Hodgkin lymphoma, recent chemotherapy source of fever may be tumor lysis versus B symptoms from Hodgkin's disease. Discussed with Dr. Baldwin over the phone as well who agrees. At this point we will discharge patient home with oral antibiotics to follow-up with oncology as an outpatient. Patient states he feels fine otherwise and only is fatigued. Does have a cough which is chronic at this point secondary to his lung involvement due to malignancy. No other active source of true infection identified. Patient not neutropenic. Patient to have repeat labs done as an outpatient and follow-up with Dr. Baldwin this week. Discussed with patient and patient's mom who agree with the above plan. I did tell them to come back to hospital in case of any worsening symptoms. Physical Exam Narrative: On 4 L nasal cannula No acute distress Laying in bed appearing comfortable at this time Mom at bedside Abdomen soft nontender Lungs clear to auscultation bilaterally No edema bilateral lower extremities Discharge Data Studies Completed and Pending Completed Studies During Hospitalization Category Date Time Status CT chest abdomen pelvis [CT chest abdpel w/*[id number] Cat Scan 09/04/23 20:37 Completed ] Routine XR chest 1V portable [id number] Stat Exams 09/03/23 21:33 Completed Pending at discharge Category Date Time Status Blood Culture Stat Lab 09/03/23 22:18 Results Folic Acid [Folate Level] Routine Lab 09/04/23 06:58 Received MRSA [Methicillin Resistant S.aureu] Routine Lab 09/04/23 06:28 Received Occult Blood Stool [Immunochemical Fecal OCB] Routine Lab 09/04/23 11:46 Uncollected Sputum Culture and Gram Stain Routine Lab 09/04/23 19:44 Results Vancomycin Trough Timed Lab 09/06/23 00:00 Ordered Radiology Impressions Chest X-Ray 09/03/23 21:33 IMPRESSION: 1. Interval improvement in the degree of airspace consolidation in the right perihilar/upper and middle lobes since 08/30/2023. Moderately extensive bilateral airspace opacities remain bilaterally. 2. Small bilateral pleural effusions. Low lung volumes. Numerous lung nodules again demonstrated. Chest/Abdomen/Pelvis CT 09/04/23 20:37 IMPRESSION: 1. Large right and small/moderate left pleural effusions have mildly increased in size. Pleural fluid on the left extends along the left major fissure. 2. Stable smooth interlobular septal thickening in the right upper lobe and right lower lobe that may represent asymmetric pulmonary edema versus lymphangitic spread of tumor. 3. Decreasing lymphadenopathy in the lower neck and chest. Mild to moderate narrowing of the right and left mainstem bronchi and all lobar bronchi bilaterally, decreased compared with the previous study. There is improving alveolar airspace disease bilaterally with multiple foci of patchy opacification again seen in both lungs. Findings suggest an improving post obstructive atelectasis and/or pneumonia. 4. Decrease in size of multiple, bilateral pulmonary nodules. 5. Left internal jugular Port-A-Cath is stable in position with the tip in the lower superior vena cava. 6. Stable mild cardiomegaly. 7. Mild body wall edema, decreased compared with the previous study. 8. Incidental/nonacute findings are listed in the report. IMPRESSION: 1. Decreasing lymphadenopathy in the abdomen and retroperitoneum. 2. Moderate hepatomegaly, the liver has increased in size. 3. Interval development of mild splenomegaly. 4. Stable small indeterminate low-density lesion in the spleen. A metastatic focus can not be ruled out. 5. Stable findings of a horseshoe kidney. 6. Stable dilatation of the superior pole calices in the right kidney with multiple nonobstructing stones, the largest measures 1.2 x 1.8 cm. 7. Small amount of free fluid in the abdomen and pelvis. 8. Jmje-hd-qmukibdv body wall edema, decreased compared with the prior study. 9. Incidental/nonacute findings are listed in the report. Laboratory Results WBC 4.22 10^3/uL (3.29-11.43) 09/05/23 05:31 RBC 3.43 10^6/uL (3.85-5.65) L 09/05/23 05:31 Hgb 8.10 g/dL (11.27-16.99) L 09/05/23 05:31 Hct 27.4 % (37-53) L 09/05/23 05:31 MCV 79.9 fl (82-101) L 09/05/23 05:31 MCH 23.6 pg (27-33) L 09/05/23 05:31 MCHC 29.6 g/dL (30-55) L 09/05/23 05:31 RDW 18.2 % (12.1-15.1) H 09/05/23 05:31 Plt Count 173 10^3/cmm (157-399) 09/05/23 05:31 MPV 8.8 fL (7.4-10.4) 09/05/23 05:31 Neut % (Auto) 79.5 % 09/05/23 05:31 Lymph % (Auto) 12.3 % 09/05/23 05:31 Cherry % (Auto) 2.6 % 09/05/23 05:31 Eos % (Auto) 4.5 % 09/05/23 05:31 Baso % (Auto) 0.2 % 09/05/23 05:31 Reticulocyte % (Auto) 0.3 % (0.5-2.0) L 09/04/23 06:58 Neut # (Auto) 3.35 10^3/uL (1.8-7.7) 09/05/23 05:31 Lymph # (Auto) 0.5 10^3/uL (0.8-4.8) L 09/05/23 05:31 Cherry # (Auto) 0.1 10^3/uL (0.2-0.9) L 09/05/23 05:31 Eos # (Auto) 0.2 10^3/uL (0.0-0.8) 09/05/23 05:31 Baso # (Auto) 0.0 10^3/uL (0.0-0.1) 09/05/23 05:31 Nucleated RBC % (auto) 0 % 09/05/23 05:31 Nucleated RBCs # 0.0 /100WBC 09/05/23 05:31 Specimen Type Arterial 09/05/23 04:21 Sample Site Brachial, right 09/05/23 04:21 ABG pH 7.39 (7.35-7.45) 09/05/23 04:21 ABG pCO2 46.7 mmHg (35-45) H 09/05/23 04:21 ABG pO2 75.4 mmHg (80.0-100.0) L 09/05/23 04:21 ABG PO2/FiO2 Ratio 0 09/05/23 04:21 ABG HCO3 28.2 mmol/L (22-26) H 09/05/23 04:21 ABG Base Excess 2.8 mmol/L (-2.0-2.0) H 09/05/23 04:21 Juan C Test N/a 09/05/23 04:21 Hematocrit 29.4 % (42-52) L 09/05/23 04:21 O2 Delivery Device Nc 09/05/23 04:21 O2 Liters/Min 4.0 % 09/05/23 04:21 FiO2 39.0 % 09/05/23 04:21 Bias Binding Folder ID Ed 09/05/23 04:21 Sodium 133 mmol/L (136-145) L 09/05/23 05:31 Potassium 3.8 mmol/L (3.5-5.1) 09/05/23 05:31 Chloride 99 mmol/L (98-107) 09/05/23 05:31 Carbon Dioxide 27 mmol/L (22-29) 09/05/23 05:31 Anion Gap 10.8 (5-19) 09/05/23 05:31 BUN 5 mg/dL (6-20) L 09/05/23 05:31 Creatinine 0.4 mg/dL (0.7-1.2) L 09/05/23 05:31 GFR Calculation 264.3 mL/min (90-130) H 09/05/23 05:31 Glucose 110 mg/dL (65-115) 09/05/23 05:31 Calculated Osmolality 274 mOsm/kg (285-295) L 09/05/23 05:31 Lactic Acid 0.8 mmol/L (0.5-2.2) 09/03/23 22:18 Calcium 7.7 mg/dL (8.5-10.5) L 09/05/23 05:31 Magnesium 2.0 mg/dL (1.7-2.3) 09/03/23 22:18 Iron 9 ug/dL (59-158) L 09/04/23 06:58 TIBC 174 mcg/dl 09/04/23 06:58 % Saturation 5.1 % (20-50) L 09/04/23 06:58 Unsat Iron Binding 165 ug/dL (112-347) 09/04/23 06:58 Ferritin 834 ng/mL (30-400) H 09/04/23 06:58 Total Bilirubin 0.3 mg/dL (0.15-1.2) 09/05/23 05:31 AST 18 U/L (0-40) 09/05/23 05:31 ALT 26 U/L (0-41) 09/05/23 05:31 Alkaline Phosphatase 119 U/L (40-130) 09/05/23 05:31 Lactate Dehydrogenase 145 U/L (135-225) 09/04/23 12:14 NT-Pro-B Natriuret Pep 426 pg/mL (0-125) H 09/03/23 22:18 Total Protein 5.5 g/dL (6.6-8.7) L 09/05/23 05:31 Albumin 2.5 g/dL (3.5-5.2) L 09/05/23 05:31 Globulin 3.0 g/dL (1.3-4.6) 09/05/23 05:31 Vitamin B12 351 pg/mL (232-1245) 09/04/23 12:14 Urine Color Light yellow (Yellow) 09/03/23 22:46 Urine Appearance Clear (CLEAR) 09/03/23 22:46 Urine pH 9 (5-7) H 09/03/23 22:46 Ur Specific [place] 1.015 (1.005-1.030) 09/03/23 22:46 Urine Protein Neg (Negative) 09/03/23 22:46 Urine Glucose (UA) Norm (Normal) 09/03/23 22:46 Urine Ketones Negative (Negative) 09/03/23 22:46 Urine Blood Neg (Negative) 09/03/23 22:46 Urine Nitrate Negative (Negative) 09/03/23 22:46 Urine Bilirubin Neg (Negative) 09/03/23 22:46 Prot Sulfosalicylic Acd Negative (Negative) 09/03/23 22:46 Urine Urobilinogen Neg mg/dL (Negative) 09/03/23 22:46 Ur Leukocyte Esterase Negative (Negative) 09/03/23 22:46 Adenovirus (PCR) Not detected (NOT DETECT) 09/04/23 06:28 C. pneumoniae DNA (PCR) Not detected (NOT DETECT) 09/04/23 06:28 Coronavirus 229E (PCR) Not detected (NOT DETECT) 09/04/23 06:28 Human Metapneumovir PCR Not detected (NOT DETECT) 09/04/23 06:28 Influenza A (H1) PCR Not detected (NOT DETECT) 09/04/23 06:28 Influ A (H1/09) PCR Not detected (NOT DETECT) 09/04/23 06:28 Influenza A (H3) PCR Not detected (NOT DETECT) 09/04/23 06:28 Influenza Type A Ag negative (Negative) 09/03/23 21:46 Influenza Type A (PCR) Not detected (NOT DETECT) 09/04/23 06:28 Influenza Type B Ag negative (Negative) 09/03/23 21:46 Influenza Type B (PCR) Not detected (NOT DETECT) 09/04/23 06:28 M. pneumoniae (PCR) Not detected (NOT DETECT) 09/04/23 06:28 Parainfluenza 1 (PCR) Not detected (NOT DETECT) 09/04/23 06:28 Parainfluenza 2 (PCR) Not detected (NOT DETECT) 09/04/23 06:28 Parainfluenza 3 (PCR) Not detected (NOT DETECT) 09/04/23 06:28 Parainfluenza 4 (PCR) Not detected (NOT DETECT) 09/04/23 06:28 RSV Type A (PCR) Not detected (NOT DETECT) 09/04/23 06:28 RSV Type B (PCR) Not detected (NOT DETECT) 09/04/23 06:28 Entero/Rhino (PCR) Not detected (NOT DETECT) 09/04/23 06:28 SARS-CoV-2 (PCR) Not detected (NOT DETECT) 09/04/23 06:28 SARS-CoV-2 Ag (Rapid) negative (Negative) 09/03/23 21:46 Blood Type O Positive 09/04/23 12:14 Rho(D) Type Rh positive 09/04/23 12:14 Antibody Screen Negative 09/04/23 12:14 MODE, Poly Interpret Negative 09/04/23 12:14 Crossmatch See Detail 09/04/23 12:14 Vitals Last Vital Signs Temp 99.2 F 09/05/23 08:00 Pulse 104 H 09/05/23 08:00 Resp 16 09/05/23 08:00 BP 149/82 09/05/23 08:00 Pulse Ox 98 09/05/23 08:00 O2 Del Method Nasal Cannula 09/05/23 08:00 O2 Flow Rate 4 09/05/23 07:47 Discharge Plan Discharge Patient Disposition: Home Condition: Stable Prescriptions: New ferrous sulfate 325 mg (65 mg iron) tablet 325 mg PO DAILY Qty: 30 0RF levofloxacin 750 mg tablet 750 mg PO DAILY 7 Days Qty: 7 0RF Continued acetaminophen 500 mg capsule 500 mg PO Q6H PRN (Reason: Pain) lidocaine-prilocaine 2.5-2.5 % cream 1 applic topical .COMPLEX Qty: 30 3RF Rx Instructions: Apply quarter size amount 30-45 minutes prior to port access, cover with cellophane albuterol sulfate [Ventolin HFA] 90 mcg/actuation HFA aerosol inhaler 2 puff inhalation QID Qty: 6.7 0RF oxycodone 10 mg tablet 10 mg PO Q4H PRN (Reason: pain) 30 Days Qty: 120 0RF ondansetron HCl 4 mg Tablet 4 mg PO QID PRN (Reason: Nausea/vomiting) Qty: 30 3RF furosemide [Lasix] 20 mg tablet 20 mg PO DAILY PRN (Reason: edema) Qty: 60 2RF potassium chloride 10 mEq tablet extended release 10 meq PO .As needed PRN (Reason: edema) Qty: 30 1RF Rx Instructions: Only take 1 pill when you take Lasix albuterol sulfate 90 mcg/actuation HFA aerosol inhaler 2 inh inhalation Q8H PRN (Reason: shortness of breath or wheezing) Qty: 6.7 3RF benzonatate 200 mg capsule 200 mg PO TID PRN (Reason: Cough) Protonix 40 mg Tablet,Delayed Release (Dr/Ec) 40 mg PO DAILY ondansetron 4 mg tablet,disintegrating 4 mg PO Q6H PRN (Reason: NAUSEA/VOMITING) Discharge Orders: Discharge Order (Routine); Ordered 09/05/23 Ordered By: Hilda Alaniz Other Ambulatory Orders: Complete Blood Count w/Auto (Routine) Timeframe: 1 Day Location: Determined by Patient Ordered By: Hilda Alaniz Referrals: Enrrique Fuller MD [Primary Care Provider] - 4-7 days Walt Baldiwn MD [Hospitalist] - 1-3 days Discharge Diet: Regular Discharge Activity: Resume usual activity and Increase activity as tolerated Patient Instructions: Opioid Safety Discharge Attestations Time Spent in Discharge Care*: greater than 30 min Quality Metrics Clinical Quality Measures [ No reported AMI, CVA or VTE this stay] Coding Level of Care Code 00559 Total time (in minutes) for Discharge: 42 Diagnoses Fever, unspecified fever cause R50.9 Fever type: unspecified Immunocompromised patient D84.9
[2023-09-05] MEDS: pantoprazole DR 40 mg Tablet PO (10:18)
[2023-09-05] MEDS: benzonatate 100 mg Capsule 200 MG PO (10:18)
[2023-09-05] MEDS: iron sucrose 200 MG in sodium chloride 0.9% (100 ml) 100 ML 220 MG IV (11:30)
[2023-09-05 12:28] LABS: Folate Level 11.5 ng/mL (4.5-32.2)
[2023-09-05 14:45] LABS: Methicillin-Resist S.aureu PCR NOT DETECTED (NOT DETECTED)
== END 2023-09-05 14:29 | disposition home or self-care (01) | DRG 812 ==
LOC: ER 23:18 → MEDSURG 23:30
PROVIDERS: Internal Medicine; Student in an Organized Health Care Education/Training Program; Admitting Provider Student in an Organized Health Care Education/Training Program; Emergency Provider Emergency Medicine; PCP Family Medicine Adult Medicine; Visit Provider Internal Medicine
DX: D50.9 Iron deficiency anemia, unspecified (principal); C81.10 Nodular sclerosis Hodgkin lymphoma, unspecified site; D84.821 Immunodeficiency due to drugs; R50.9 Fever, unspecified; E66.9 Obesity, unspecified; F41.9 Anxiety disorder, unspecified; F32.A Depression, unspecified; T45.1X5A Adverse effect of antineoplastic and immunosuppressive drugs, initial encounter; Z99.81 Dependence on supplemental oxygen; Z79.60 Long term (current) use of unspecified immunomodulators and immunosuppressants; Z11.52 Encounter for screening for COVID-19; Z87.891 Personal history of nicotine dependence; Z68.35 Body mass index [BMI] 35.0-35.9, adult
CPT/HCPCS: 36415; 36430; 36591; 36600; 71045; 71260; 74177; 80053; 81003; 82607; 82728; 82746; 82803; 83540; 83550; 83605; 83615; 83735; 83880; 85025; 85045; 86850; 86880; 86900; 86920; 87040; 87070; 87205; 87426; 87486; 87581; 87633; 87641; 87804; 93005; 94640; 96365; 96367; 96372; 99285; J1650; J1756; J1885; J2543; J3370; J3372; J7030; J7050; J7613; P9016; Q9967

== ENCOUNTER 2023-09-19 12:45 | Oncology outpatient (recurring) (ONCR) | payer OTHER, SELFPAY ==
[2023-09-08 09:54] LABS: Basophils % 0.4 %; Eosinophils # 0.3 10^3/uL (0.0-0.8); Eosinophils % 10.5 %; Lymphocytes # 1.2 10^3/uL (0.8-4.8); Lymphocytes % 44.6 %; Mean Corpuscular HGB Conc 29.7 g/dL (30-55); Mean Corpuscular Hemoglobin 23.4 pg (27-33); Mean Corpuscular Volume 78.7 fl (82-101); Mean Platelet Volume 8.5 fL (7.4-10.4); Monocytes # 0.5 10^3/uL (0.2-0.9); Monocytes % 20.5 %; Neutrophils % 23.6 %; Nucleated Red Blood Cells % 0 %; Platelet Count 327 10^3/cmm (157-399); Red Blood Count 3.81 10^6/uL (3.85-5.65); Red Cell Distribution Width 19.2 % (12.1-15.1); White Blood Count 2.58 10^3/uL (3.29-11.43)
[2023-09-08 10:08] LABS: Alanine Aminotransferase 46 U/L (0-41); Alkaline Phosphatase 264 U/L (40-130); Anion Gap 9.9 (5-19); Aspartate Amino Transferase 42 U/L (0-40); Blood Urea Nitrogen 3 mg/dL (6-20); Calcium 8.4 mg/dL (8.5-10.5); Carbon Dioxide 30 mmol/L (22-29); Chloride 101 mmol/L (98-107); Globulin 3.1 g/dL (1.3-4.6); Glomerular Filtration Rate 204.3 mL/min (90-130); Glucose 88 mg/dL (65-115); Osmolality Calculated 280 mOsm/kg (285-295); Potassium 3.9 mmol/L (3.5-5.1); Sodium 137 mmol/L (136-145); Total Bilirubin 0.3 mg/dL (0.15-1.2); Total Protein 6.1 g/dL (6.6-8.7)
[2023-09-08 10:36] LABS: Neutrophils # 0.61 10^3/uL (1.8-7.7)
[2023-09-08 10:39] LABS: Slide Review Slide Review Perform
[2023-09-12 08:07] LABS: Basophils % 0.4 %; Eosinophils # 0.3 10^3/uL (0.0-0.8); Eosinophils % 6.6 %; Hematocrit 34.7 % (37-53); Lymphocytes # 2.9 10^3/uL (0.8-4.8); Mean Corpuscular HGB Conc 30.5 g/dL (30-55); Mean Corpuscular Hemoglobin 24.1 pg (27-33); Mean Corpuscular Volume 78.9 fl (82-101); Mean Platelet Volume 8.3 fL (7.4-10.4); Monocytes # 1.1 10^3/uL (0.2-0.9); Monocytes % 23.3 %; Neutrophils % 10.5 %; Nucleated Red Blood Cells % 0 %; Platelet Count 532 10^3/cmm (157-399); Red Cell Distribution Width 19.9 % (12.1-15.1); White Blood Count 4.85 10^3/uL (3.29-11.43)
[2023-09-12 08:35] LABS: Neutrophils # 0.51 10^3/uL (1.8-7.7)
[2023-09-12 08:41] LABS: Alanine Aminotransferase 42 U/L (0-41); Albumin Level 3.4 g/dL (3.5-5.2); Alkaline Phosphatase 251 U/L (40-130); Aspartate Amino Transferase 19 U/L (0-40); Blood Urea Nitrogen 12 mg/dL (6-20); Calcium 8.9 mg/dL (8.5-10.5); Carbon Dioxide 30 mmol/L (22-29); Chloride 98 mmol/L (98-107); Glomerular Filtration Rate 165.5 mL/min (90-130); Glucose 103 mg/dL (65-115); Lactate Dehydrogenase 138 U/L (135-225); Osmolality Calculated 286 mOsm/kg (285-295); Sodium 138 mmol/L (136-145); Total Bilirubin 0.2 mg/dL (0.15-1.2); Total Protein 6.4 g/dL (6.6-8.7)
[2023-09-12 08:48] LABS: Creatinine Clr Calc Pharmacy 236.2941
[2023-09-12] MEDS: sodium chloride 0.9% 250 ML 75 ML IV (09:37)
[2023-09-12] MEDS: diphenhydrAMINE 50 mg/mL SDV 1mL 25 MG IVP (09:37)
[2023-09-12] MEDS: famotidine 20 mg/2 mL INJ IVP (09:40)
[2023-09-12] MEDS: acetaminophen 325 mg Tablet 650 MG PO (09:40)
[2023-09-12] MEDS: palonosetron 0.25 mg/5 mL SDV IVP (09:44)
[2023-09-12] MEDS: fosaprepitant 150 MG in sodium chloride 0.9% 150 ML 300 MG IV (09:46)
[2023-09-12] MEDS: DOXOrubicin 2 mg/ml MDV 58 MG IVP (10:43)
[2023-09-12] MEDS: SODIUM CHLORIDE 0.9% IV ×2 (10:53→11:24)
[2023-09-12] MEDS: VINBLASTINE IV (10:53)
[2023-09-12] MEDS: DACARBAZINE IV (11:24)
[2023-09-12 15:24] VITALS: BP 155/97; PULSE 75; TEMP 36.5; O2SAT 99
[2023-09-19 13:06] LABS: Basophils # 0.1 10^3/uL (0.0-0.1); Basophils % 0.8 %; Eosinophils # 0.1 10^3/uL (0.0-0.8); Eosinophils % 1.7 %; Hematocrit 33.9 % (37-53); Lymphocytes # 1.5 10^3/uL (0.8-4.8); Lymphocytes % 23.5 %; Mean Corpuscular HGB Conc 30.7 g/dL (30-55); Mean Corpuscular Hemoglobin 24.4 pg (27-33); Mean Corpuscular Volume 79.4 fl (82-101); Mean Platelet Volume 8.3 fL (7.4-10.4); Monocytes # 0.1 10^3/uL (0.2-0.9); Monocytes % 2.1 %; Neutrophils % 70.5 %; Nucleated Red Blood Cells % 0 %; Platelet Count 385 10^3/cmm (157-399); Red Blood Count 4.27 10^6/uL (3.85-5.65); Red Cell Distribution Width 19.8 % (12.1-15.1); White Blood Count 6.52 10^3/uL (3.29-11.43)
== END 2023-09-25 23:59 | disposition home or self-care (01) ==
PROVIDERS: Internal Medicine Medical Oncology; Nurse Practitioner Family; PCP Family Medicine Adult Medicine; Visit Provider Family Medicine Adult Medicine
DX: Z53.9 Procedure and treatment not carried out, unspecified reason (principal); C78.00 Secondary malignant neoplasm of unspecified lung; C80.1 Malignant (primary) neoplasm, unspecified
CPT/HCPCS: 36591; 80053; 83615; 85025; 96367; 96375; 96409; 96413; 96417; J1100; J1200; J1453; J1642; J2469; J3490; J7040; J7050; J9000; J9130; J9360

== ENCOUNTER 2023-09-26 08:11 | Oncology outpatient (recurring) (ONCR) | payer OTHER, SELFPAY ==
[2023-09-26 08:39] LABS: Basophils % 0.4 %; Eosinophils # 0.1 10^3/uL (0.0-0.8); Eosinophils % 3.4 %; Hematocrit 38.5 % (37-53); Lymphocytes # 1.8 10^3/uL (0.8-4.8); Lymphocytes % 70.5 %; Mean Corpuscular HGB Conc 30.6 g/dL (30-55); Mean Corpuscular Hemoglobin 24.6 pg (27-33); Mean Corpuscular Volume 80.4 fl (82-101); Mean Platelet Volume 8.5 fL (7.4-10.4); Monocytes # 0.5 10^3/uL (0.2-0.9); Monocytes % 19.9 %; Neutrophils % 5.4 %; Nucleated Red Blood Cells % 0 %; Platelet Count 208 10^3/cmm (157-399); Red Blood Count 4.79 10^6/uL (3.85-5.65); Red Cell Distribution Width 21.5 % (12.1-15.1); White Blood Count 2.61 10^3/uL (3.29-11.43)
[2023-09-26 08:44] LABS: Neutrophils # 0.14 10^3/uL (1.8-7.7)
[2023-09-26 09:00] LABS: Alanine Aminotransferase 18 U/L (0-41); Albumin Level 3.8 g/dL (3.5-5.2); Alkaline Phosphatase 94 U/L (40-130); Anion Gap 14.6 (5-19); Aspartate Amino Transferase 12 U/L (0-40); Blood Urea Nitrogen 12 mg/dL (6-20); Calcium 8.9 mg/dL (8.5-10.5); Carbon Dioxide 25 mmol/L (22-29); Chloride 106 mmol/L (98-107); Globulin 2.8 g/dL (1.3-4.6); Glomerular Filtration Rate 138.6 mL/min (90-130); Glucose 89 mg/dL (65-115); Lactate Dehydrogenase 116 U/L (135-225); Osmolality Calculated 293 mOsm/kg (285-295); Potassium 3.6 mmol/L (3.5-5.1); Sodium 142 mmol/L (136-145); Thyroid Stimulating Hormone 1.49 uIU/mL (0.27-4.20); Total Bilirubin 0.2 mg/dL (0.15-1.2); Total Protein 6.6 g/dL (6.6-8.7)
[2023-09-26] MEDS: acetaminophen 325 mg Tablet 650 MG PO (11:14)
[2023-09-26] MEDS: sodium chloride 0.9% 250 ML 75 ML IV (11:14)
[2023-09-26] MEDS: palonosetron 0.25 mg/5 mL SDV IVP (11:18)
[2023-09-26] MEDS: famotidine 20 mg/2 mL INJ IVP (11:21)
[2023-09-26] MEDS: diphenhydrAMINE 50 mg/mL SDV 1mL 25 MG IVP (11:25)
[2023-09-26] MEDS: fosaprepitant 150 MG in sodium chloride 0.9% 150 ML 300 MG IV (11:36)
[2023-09-26] MEDS: nivolumab 480 MG in sodium chloride 0.9% 250 ML 596 MG IV (12:46)
[2023-09-26] MEDS: DOXOrubicin 2 mg/ml MDV 58 MG IVP (13:43)
[2023-09-26] MEDS: VINBLASTINE IV (14:01)
[2023-09-26] MEDS: SODIUM CHLORIDE 0.9% IV ×2 (14:01→14:36)
[2023-09-26] MEDS: DACARBAZINE IV (14:36)
[2023-09-26 16:01] VITALS: BP 151/95; PULSE 72; RESP 16; TEMP 36.6; O2SAT 97
== END 2023-09-26 23:59 | disposition home or self-care (01) ==
PROVIDERS: Internal Medicine Medical Oncology; Nurse Practitioner Family; PCP Family Medicine Adult Medicine; Visit Provider Family Medicine Adult Medicine
DX: C78.00 Secondary malignant neoplasm of unspecified lung; C80.1 Malignant (primary) neoplasm, unspecified; Z51.11 Encounter for antineoplastic chemotherapy
CPT/HCPCS: 80053; 83615; 84443; 85025; 96367; 96375; 96409; 96413; 96417; A4222; J1100; J1200; J1453; J2469; J3490; J7040; J7050; J9000; J9130; J9299; J9360

== ENCOUNTER 2023-10-24 08:17 | Oncology outpatient (recurring) (ONCR) | payer SELFPAY ==
[2023-10-03 12:58] LABS: Basophils % 0.4 %; Eosinophils # 0.2 10^3/uL (0.0-0.8); Eosinophils % 3.7 %; Hematocrit 37.8 % (37-53); Lymphocytes # 2.4 10^3/uL (0.8-4.8); Lymphocytes % 48.6 %; Mean Corpuscular HGB Conc 31.5 g/dL (30-55); Mean Corpuscular Hemoglobin 24.8 pg (27-33); Mean Corpuscular Volume 78.9 fl (82-101); Mean Platelet Volume 8.5 fL (7.4-10.4); Monocytes # 0.1 10^3/uL (0.2-0.9); Monocytes % 1.4 %; Neutrophils # 2.21 10^3/uL (1.8-7.7); Neutrophils % 45.3 %; Nucleated Red Blood Cells % 0 %; Platelet Count 182 10^3/cmm (157-399); Red Blood Count 4.79 10^6/uL (3.85-5.65); Red Cell Distribution Width 20.3 % (12.1-15.1); White Blood Count 4.88 10^3/uL (3.29-11.43)
[2023-10-03 13:15] LABS: Alanine Aminotransferase 15 U/L (0-41); Albumin Level 4.1 g/dL (3.5-5.2); Alkaline Phosphatase 81 U/L (40-130); Anion Gap 14.5 (5-19); Aspartate Amino Transferase 11 U/L (0-40); Blood Urea Nitrogen 13 mg/dL (6-20); Calcium 9.4 mg/dL (8.5-10.5); Carbon Dioxide 26 mmol/L (22-29); Chloride 104 mmol/L (98-107); Globulin 2.6 g/dL (1.3-4.6); Glomerular Filtration Rate 165.5 mL/min (90-130); Glucose 89 mg/dL (65-115); Osmolality Calculated 292 mOsm/kg (285-295); Potassium 3.5 mmol/L (3.5-5.1); Sodium 141 mmol/L (136-145); Total Bilirubin 0.2 mg/dL (0.15-1.2); Total Protein 6.7 g/dL (6.6-8.7)
[2023-10-10 08:30] LABS: Basophils % 0.6 %; Eosinophils # 0.1 10^3/uL (0.0-0.8); Eosinophils % 3.3 %; Hematocrit 39.2 % (37-53); Lymphocytes # 2.2 10^3/uL (0.8-4.8); Lymphocytes % 65.3 %; Mean Corpuscular HGB Conc 31.1 g/dL (30-55); Mean Corpuscular Hemoglobin 25.5 pg (27-33); Mean Platelet Volume 8.2 fL (7.4-10.4); Monocytes # 0.7 10^3/uL (0.2-0.9); Monocytes % 19.6 %; Neutrophils % 10.3 %; Nucleated Red Blood Cells % 0 %; Platelet Count 226 10^3/cmm (157-399); Red Blood Count 4.78 10^6/uL (3.85-5.65); Red Cell Distribution Width 21.8 % (12.1-15.1); White Blood Count 3.31 10^3/uL (3.29-11.43)
[2023-10-10 08:40] LABS: Neutrophils # 0.34 10^3/uL (1.8-7.7)
[2023-10-10 09:21] LABS: Alanine Aminotransferase 15 U/L (0-41); Albumin Level 3.9 g/dL (3.5-5.2); Alkaline Phosphatase 77 U/L (40-130); Anion Gap 14.7 (5-19); Aspartate Amino Transferase 12 U/L (0-40); Blood Urea Nitrogen 11 mg/dL (6-20); Calcium 9.1 mg/dL (8.5-10.5); Carbon Dioxide 25 mmol/L (22-29); Chloride 107 mmol/L (98-107); Creatinine Clr Calc Pharmacy 202.9549; Globulin 2.7 g/dL (1.3-4.6); Glomerular Filtration Rate 138.6 mL/min (90-130); Glucose 106 mg/dL (65-115); Osmolality Calculated 296 mOsm/kg (285-295); Potassium 3.7 mmol/L (3.5-5.1); Sodium 143 mmol/L (136-145); Total Bilirubin 0.2 mg/dL (0.15-1.2); Total Protein 6.6 g/dL (6.6-8.7)
[2023-10-10] MEDS: sodium chloride 0.9% 250 ML 75 ML IV (11:28)
[2023-10-10] MEDS: acetaminophen 325 mg Tablet 650 MG PO (11:31)
[2023-10-10] MEDS: palonosetron 0.25 mg/5 mL SDV IVP (11:32)
[2023-10-10] MEDS: famotidine 20 mg/2 mL INJ IVP (11:34)
[2023-10-10] MEDS: diphenhydrAMINE 50 mg/mL SDV 1mL 25 MG IVP (11:37)
[2023-10-10] MEDS: fosaprepitant 150 MG in sodium chloride 0.9% 150 ML 300 MG IV (11:41)
[2023-10-10] MEDS: DOXOrubicin 2 mg/ml MDV 58 MG IVP (12:34)
[2023-10-10] MEDS: VINBLASTINE IV (12:51)
[2023-10-10] MEDS: SODIUM CHLORIDE 0.9% IV ×2 (12:51→13:15)
[2023-10-10] MEDS: DACARBAZINE IV (13:15)
[2023-10-10 15:12] VITALS: BP 130/80; PULSE 87; RESP 16; TEMP 36; O2SAT 97
[2023-10-17 13:19] LABS: Basophils % 0.2 %; Eosinophils # 0.1 10^3/uL (0.0-0.8); Eosinophils % 2.6 %; Lymphocytes # 2.3 10^3/uL (0.8-4.8); Lymphocytes % 50.3 %; Mean Corpuscular HGB Conc 31.9 g/dL (30-55); Mean Corpuscular Hemoglobin 25.9 pg (27-33); Mean Corpuscular Volume 81.1 fl (82-101); Mean Platelet Volume 8.5 fL (7.4-10.4); Monocytes # 0.1 10^3/uL (0.2-0.9); Neutrophils # 2.04 10^3/uL (1.8-7.7); Neutrophils % 44.5 %; Nucleated Red Blood Cells % 0 %; Platelet Count 191 10^3/cmm (157-399); Red Blood Count 4.56 10^6/uL (3.85-5.65); Red Cell Distribution Width 20.5 % (12.1-15.1); White Blood Count 4.59 10^3/uL (3.29-11.43)
[2023-10-17 13:36] LABS: Alanine Aminotransferase 18 U/L (0-41); Albumin Level 3.9 g/dL (3.5-5.2); Alkaline Phosphatase 71 U/L (40-130); Anion Gap 14.6 (5-19); Aspartate Amino Transferase 12 U/L (0-40); Blood Urea Nitrogen 12 mg/dL (6-20); Carbon Dioxide 26 mmol/L (22-29); Chloride 103 mmol/L (98-107); Creatinine Clr Calc Pharmacy 206.2959; Globulin 2.8 g/dL (1.3-4.6); Glomerular Filtration Rate 138.6 mL/min (90-130); Glucose 99 mg/dL (65-115); Osmolality Calculated 290 mOsm/kg (285-295); Potassium 3.6 mmol/L (3.5-5.1); Sodium 140 mmol/L (136-145); Total Bilirubin 0.2 mg/dL (0.15-1.2); Total Protein 6.7 g/dL (6.6-8.7)
--- NOTE | 2023-10-18 13:00 | PETR_ITS ---
PROCEDURE INFORMATION: Exam: PET/CT Skull Base to Mid-thigh Exam date and time: 10/18/2023 1:18 PM Age: 22 years old Clinical indication: Condition or disease; Primary cancer: Hodgkins lymphoma, nodular sclerosis; Follow-up oncological assessment; Prior surgery; Surgery date: 1-6 months; Surgery type: Port; Additional info: Restaging, schedule prior to cycle 3, 10/24/23 please. LABS AND CLINICAL REPORTS: Glucose: 78 mg/dl Treatment strategy for malignancy (PET staging): Restaging (PS) TECHNIQUE: Imaging protocol: Following at least four-hour fasting and following the injection of radiopharmaceutical, low dose CT images were obtained. Then, PET images were obtained. Attenuation corrected images were constructed using the CT scan. Fused images of PET and CT were reviewed. The standardized uptake values (SUV) reported below are maximum values within a region of interest, expressed in gm/ml. Exam includes orbital meatal line to mid-thigh. Radiopharmaceutical: 13.3 mCi F-18 FDG (Fluorodeoxyglucose), IV. Time of imaging post radiopharmaceutical administration: 1 hour Injection site: Left hand COMPARISON: CT chest, abdomen and pelvis 09/04/2023, [facility] [id number] 08/16/2023 9:26 AM FINDINGS: Limitations: The examination is slightly technically suboptimal secondary to the scan to injection time outside of recommended parameters (45-75 minutes). Reported scan to injection time of 44.2 minutes. Injection to scan times outside of recommended parameters can result in decreased PET sensitivity and limit the utility of comparison of SUV values to prior or subsequent exams. Tubes, catheters and devices: A left subclavian central venous port catheter terminates in the distal SVC. Brain: Visualized brain has normal physiologic uptake. Paranasal sinuses: [id number] non radiotracer avid mucosal thickening of the left maxillary sinus and in the ethmoid sinuses is noted consistent with benign paranasal sinus disease. Salivary glands: There is mild, physiologic appearing uptake in the bilateral submandibular and parotid glands. Pharynx: There is mild, likely physiologic or inflammatory uptake in the bilateral palatine tonsils, SUV max 3.4 on the right and 3.6 on the left. Larynx: No abnormal uptake. Lungs, pleura and trachea: No abnormal uptake. Small right pleural effusion, decreased in size with interval resolution of the previously noted left pleural effusion. Indistinct nodular densities in both lungs are noted which have decreased in size and number since the prior examinations. A dominant solid inferior posteromedial left lower lobe 1.1 cm (previously 1.4 cm on the prior PET-CT) nodule on series 3, image 106 is noted. These nodules are significantly decreased in size and number compared with the prior PET-CT and prior CT chest. Heart: Normal physiologic uptake. Mediastinal space: No abnormal uptake. Liver: No abnormal uptake. Gallbladder and bile ducts: No abnormal uptake. Pancreas: No abnormal uptake. Spleen: No abnormal uptake. No significant splenomegaly. Adrenal glands: No abnormal uptake. Kidneys and ureters: A horseshoe kidney configuration is noted. Numerous calculi in the right kidney component are noted similar to the previous PET-CT measuring up to 1.7 x 1.0 cm on series 3, image 161. Moderate right-sided superior caliectasis/hydronephrosis is similar compared with 09/04/2023. Stomach and bowel: No abnormal uptake. Vasculature: No abnormal uptake. Lymph nodes: No abnormal uptake. Previously noted uptake within lymph nodes in the neck, chest, abdomen and pelvis is no longer identified compared to the previous CT chest, abdomen and pelvis of 09/04/2023 and the prior PET-CT. Comparisons below refer to the prior PET-CT unless otherwise stated. There is been an interval decrease in size of lymph nodes in the neck compared with the prior PET-CT. For example, a lymph node deep to the left sternocleidomastoid muscle on series 3, image 36 measures 1.5 x 0.7 cm (previously 1.8 x 1.3 cm). Interval decrease in size previously noted mediastinal, bilateral hilar and axillary lymphadenopathy compared with the prior PET-CT. Examples: The dominant left axillary lymph node currently measures 3.3 x 1.6 cm on series 3, image 77 (previously 5.3 x 3.0 cm on the prior PET-CT and 4.3 x 2.[address] of 09/04/2023). A right paratracheal 1.9 cm lymph node on series 3, image 81 previously measured 3.8 x 3.0 cm on the prior PET-CT and 2.[address] chest of 09/04/2023. Significant interval decrease in size of abdominal lymph nodes since the prior PET-CT. Examples: A retroperitoneal left periaortic lymph node measures 1.4 cm (previously 3 cm on the prior PET-CT and 2.[address] of 09/04/2023) on series 3, image 160. Bones/joints: In the anterolateral cortex of the distal left femoral shaft and non radiotracer avid circumscribed ovoid region of similar peripheral linear sclerotic density measuring 1.0 x 1.0 cm in the axial plane by 2.9 cm superior to inferior on series 3 image 326 is noted and continues to be non radiotracer avid compatible with a benign finding. Non radiotracer avid partially healed posterolateral left 10th and 11th rib fractures are noted. Degenerative changes in the spine are present. Neural foraminal stenosis appears severe on the left at L4-L5. Soft tissues: Mild uptake in the soft tissues of the posterior nasopharynx is likely inflammatory or infectious in etiology without a discrete mass on the CT images, SUV max 3.6. METRICS: Mediastinal blood pool: SUV max 2.0 Liver uptake: SUV max 2.6, SUV mean 2.0 [facility] SUB[facility] [id number] IMPRESSION: 1. Interval decrease in size of previously noted radiotracer avid lymph nodes in the neck, chest, abdomen and pelvis compared with the prior PET-CT previous lymph nodes are also decreased in size in the chest, abdomen and pelvis compared with the prior CT chest, abdomen and pelvis of 09/04/2023. These lymph nodes are not currently radiotracer avid consistent with an interval response to therapy. 2. Interval decrease in size of bilateral pulmonary nodules, none of which are currently radiotracer avid. 3. Probable infectious or inflammatory uptake in the posterior nasopharyngeal soft tissues and bilateral palatine tonsils. A malignant etiology is less likely. 4. Similar moderate right hydronephrosis/caliectasis associated with right nephrolithiasis. 5. Additional nonurgent findings as detailed above. Deauville Scorin: No uptake 2: Uptake < or = mediastinal blood pool (max SUV) 3: Uptake > mediastinal blood pool (max SUV) but < or = liver (max SUV) 4: Uptake moderately higher than liver (uptake > maximum SUV of the liver) 5: Uptake markedly higher than liver (uptake 2-3x > maximum SUV of the liver) and/or new lesions
[2023-10-18 13:20] LABS: Ferritin 507 ng/mL (30-400); Iron 49 ug/dL (59-158); Percent Saturation 22.7 % (20-50); Total Iron Binding Capacity 215 mcg/dl; Unsaturated Iron Binding 166 ug/dL (112-347)
[2023-10-24 08:58] LABS: Basophils % 0.8 %; Eosinophils # 0.1 10^3/uL (0.0-0.8); Eosinophils % 2.1 %; Hematocrit 39.9 % (37-53); Lymphocytes # 2.7 10^3/uL (0.8-4.8); Lymphocytes % 69.6 %; Mean Corpuscular HGB Conc 31.6 g/dL (30-55); Mean Corpuscular Hemoglobin 25.8 pg (27-33); Mean Corpuscular Volume 81.6 fl (82-101); Mean Platelet Volume 8.8 fL (7.4-10.4); Monocytes # 0.6 10^3/uL (0.2-0.9); Monocytes % 14.9 %; Neutrophils % 9.7 %; Nucleated Red Blood Cells % 0 %; Platelet Count 258 10^3/cmm (157-399); Red Blood Count 4.89 10^6/uL (3.85-5.65); White Blood Count 3.82 10^3/uL (3.29-11.43)
[2023-10-24 09:07] LABS: Neutrophils # 0.37 10^3/uL (1.8-7.7)
[2023-10-24 09:33] LABS: Alanine Aminotransferase 20 U/L (0-41); Albumin Level 4.1 g/dL (3.5-5.2); Alkaline Phosphatase 72 U/L (40-130); Anion Gap 14.6 (5-19); Aspartate Amino Transferase 16 U/L (0-40); Blood Urea Nitrogen 13 mg/dL (6-20); Calcium 9.2 mg/dL (8.5-10.5); Carbon Dioxide 25 mmol/L (22-29); Chloride 103 mmol/L (98-107); Creatinine Clr Calc Pharmacy 208.8018; Globulin 2.8 g/dL (1.3-4.6); Glomerular Filtration Rate 138.6 mL/min (90-130); Glucose 98 mg/dL (65-115); Osmolality Calculated 288 mOsm/kg (285-295); Potassium 3.6 mmol/L (3.5-5.1); Sodium 139 mmol/L (136-145); Total Bilirubin 0.2 mg/dL (0.15-1.2); Total Protein 6.9 g/dL (6.6-8.7)
[2023-10-24] MEDS: sodium chloride 0.9% 250 ML 75 ML IV (11:15)
[2023-10-24] MEDS: palonosetron 0.25 mg/5 mL SDV IVP (11:16)
[2023-10-24] MEDS: acetaminophen 325 mg Tablet 650 MG PO (11:17)
[2023-10-24] MEDS: famotidine 20 mg/2 mL INJ IVP (11:18)
[2023-10-24] MEDS: diphenhydrAMINE 50 mg/mL SDV 1mL 25 MG IVP (11:19)
[2023-10-24 11:33] VITALS: BP 156/108; PULSE 90; RESP 18; O2SAT 98
[2023-10-24] MEDS: fosaprepitant 150 MG in sodium chloride 0.9% 150 ML 300 MG IV (11:41)
[2023-10-24] MEDS: nivolumab 480 MG in sodium chloride 0.9% 250 ML 596 MG IV (12:14)
[2023-10-24] MEDS: DOXOrubicin 2 mg/ml MDV 58 MG IVP (13:40)
[2023-10-24] MEDS: VINBLASTINE IV (13:59)
[2023-10-24] MEDS: SODIUM CHLORIDE 0.9% IV ×2 (13:59→14:23)
[2023-10-24] MEDS: DACARBAZINE IV (14:23)
[2023-10-24 15:40] VITALS: BP 160/101; PULSE 87; RESP 18; O2SAT 98
== END 2023-10-24 23:59 | disposition home or self-care (01) ==
PROVIDERS: Nurse Practitioner Family; PCP Family Medicine Adult Medicine; Visit Provider Family Medicine Adult Medicine
DX: Z53.9 Procedure and treatment not carried out, unspecified reason (principal); C78.00 Secondary malignant neoplasm of unspecified lung; C80.1 Malignant (primary) neoplasm, unspecified; Z51.11 Encounter for antineoplastic chemotherapy; Z51.12 Encounter for antineoplastic immunotherapy; Z79.52 Long term (current) use of systemic steroids; Z79.899 Other long term (current) drug therapy
CPT/HCPCS: 36591; 78815; 80053; 82728; 83540; 83550; 85025; 96367; 96375; 96411; 96413; 96417; A4222; A9552; J1100; J1200; J1453; J1642; J2469; J3490; J7040; J7050; J9000; J9130; J9299; J9360

== ENCOUNTER 2023-11-22 08:00 | Oncology outpatient (recurring) (ONCR) | payer SELFPAY ==
--- NOTE | 2023-10-31 09:46 | XRR_ITS ---
PROCEDURE INFORMATION: Exam: XR Chest Exam date and time: 10/31/2023 9:49 AM Age: 22 years old Clinical indication: Cough; Prior surgery; Surgery date: <1 month; Surgery type: Port; Patient HX: Llymphoma with lung mets TECHNIQUE: Imaging protocol: Radiologic exam of the chest. Views: 2 views. COMPARISON: CT chest abdpel w/*[id number] 09/04/2023 8:18 PM FINDINGS: Tubes, catheters and devices: Left-sided central venous chest port with the distal tip at the cavoatrial junction. Lungs: Persistent mild interstitial prominence could be related to pulmonary edema. No dense confluent lobar opacities. Pleural spaces: No pneumothorax. No large pleural effusion. Heart/Mediastinum: The cardiomediastinal silhouette is within normal limits. Bones/joints: Unremarkable. XR/XR chest 2V* [id number] IMPRESSION: Persistent mild interstitial prominence could be related to pulmonary edema. No dense confluent lobar opacities.
[2023-10-31 09:53] LABS: Basophils % 0.4 %; Eosinophils # 0.1 10^3/uL (0.0-0.8); Eosinophils % 1.6 %; Hematocrit 36.1 % (37-53); Lymphocytes # 1.8 10^3/uL (0.8-4.8); Lymphocytes % 25.7 %; Mean Corpuscular HGB Conc 32.4 g/dL (30-55); Mean Corpuscular Hemoglobin 26.4 pg (27-33); Mean Corpuscular Volume 81.5 fl (82-101); Monocytes # 0.2 10^3/uL (0.2-0.9); Monocytes % 2.3 %; Neutrophils # 4.72 10^3/uL (1.8-7.7); Neutrophils % 69.4 %; Nucleated Red Blood Cells % 0 %; Platelet Count 238 10^3/cmm (157-399); Red Blood Count 4.43 10^6/uL (3.85-5.65); Red Cell Distribution Width 19.7 % (12.1-15.1); White Blood Count 6.81 10^3/uL (3.29-11.43)
[2023-10-31 10:08] LABS: Alanine Aminotransferase 18 U/L (0-41); Alkaline Phosphatase 69 U/L (40-130); Anion Gap 13.9 (5-19); Aspartate Amino Transferase 12 U/L (0-40); Blood Urea Nitrogen 17 mg/dL (6-20); Calcium 8.6 mg/dL (8.5-10.5); Carbon Dioxide 27 mmol/L (22-29); Chloride 105 mmol/L (98-107); Globulin 2.7 g/dL (1.3-4.6); Glomerular Filtration Rate 118.8 mL/min (90-130); Glucose 92 mg/dL (65-115); Osmolality Calculated 295 mOsm/kg (285-295); Potassium 3.9 mmol/L (3.5-5.1); Sodium 142 mmol/L (136-145); Total Bilirubin 0.2 mg/dL (0.15-1.2); Total Protein 6.7 g/dL (6.6-8.7)
[2023-11-07 07:59] LABS: Basophils % 0.8 %; Eosinophils # 0.1 10^3/uL (0.0-0.8); Eosinophils % 3.4 %; Hematocrit 38.8 % (37-53); Lymphocytes # 2.3 10^3/uL (0.8-4.8); Lymphocytes % 61.3 %; Mean Corpuscular HGB Conc 32.2 g/dL (30-55); Mean Corpuscular Hemoglobin 26.8 pg (27-33); Mean Corpuscular Volume 83.3 fl (82-101); Mean Platelet Volume 8.4 fL (7.4-10.4); Monocytes # 0.7 10^3/uL (0.2-0.9); Monocytes % 19.4 %; Neutrophils % 10.9 %; Nucleated Red Blood Cells % 0 %; Platelet Count 267 10^3/cmm (157-399); Red Blood Count 4.66 10^6/uL (3.85-5.65); Red Cell Distribution Width 19.9 % (12.1-15.1); White Blood Count 3.77 10^3/uL (3.29-11.43)
[2023-11-07 08:16] LABS: Alanine Aminotransferase 21 U/L (0-41); Alkaline Phosphatase 72 U/L (40-130); Aspartate Amino Transferase 17 U/L (0-40); Blood Urea Nitrogen 15 mg/dL (6-20); Calcium 9.6 mg/dL (8.5-10.5); Carbon Dioxide 26 mmol/L (22-29); Chloride 103 mmol/L (98-107); Globulin 2.9 g/dL (1.3-4.6); Glomerular Filtration Rate 102.8 mL/min (90-130); Glucose 93 mg/dL (65-115); Osmolality Calculated 289 mOsm/kg (285-295); Sodium 139 mmol/L (136-145); Total Bilirubin 0.2 mg/dL (0.15-1.2); Total Protein 6.9 g/dL (6.6-8.7)
[2023-11-07 08:19] LABS: Anion Gap 13.5 (5-19); Potassium 3.5 mmol/L (3.5-5.1)
[2023-11-07 08:54] LABS: Neutrophils # 0.41 10^3/uL (1.8-7.7)
[2023-11-07] MEDS: sodium chloride 0.9% 250 ML 75 ML IV (11:20)
[2023-11-07] MEDS: acetaminophen 325 mg Tablet 650 MG PO (11:20)
[2023-11-07] MEDS: famotidine 20 mg/2 mL INJ IVP (11:21)
[2023-11-07] MEDS: palonosetron 0.25 mg/5 mL SDV IVP (11:24)
[2023-11-07] MEDS: diphenhydrAMINE 50 mg/mL SDV 1mL 25 MG IVP (11:26)
[2023-11-07] MEDS: fosaprepitant 150 MG in sodium chloride 0.9% 150 ML 300 MG IV (11:29)
[2023-11-07] MEDS: DOXOrubicin 2 mg/ml MDV 58 MG IVP (12:12)
[2023-11-07] MEDS: VINBLASTINE IV (12:33)
[2023-11-07] MEDS: SODIUM CHLORIDE 0.9% IV ×2 (12:33→13:08)
[2023-11-07] MEDS: DACARBAZINE IV (13:08)
[2023-11-07] MEDS: sodium chloride 0.9% (100 ml) 100 ML (14:15)
[2023-11-07 14:31] VITALS: BP 150/88; PULSE 85; RESP 17; TEMP 35.8; O2SAT 99
[2023-11-15 10:16] LABS: Alanine Aminotransferase 21 U/L (0-41); Albumin Level 4.1 g/dL (3.5-5.2); Alkaline Phosphatase 76 U/L (40-130); Anion Gap 15.3 (5-19); Aspartate Amino Transferase 13 U/L (0-40); Blood Urea Nitrogen 18 mg/dL (6-20); Calcium 8.9 mg/dL (8.5-10.5); Carbon Dioxide 27 mmol/L (22-29); Chloride 103 mmol/L (98-107); Creatinine Clr Calc Pharmacy 182.5753; Globulin 2.8 g/dL (1.3-4.6); Glomerular Filtration Rate 117.8 mL/min (90-130); Glucose 87 mg/dL (65-115); Osmolality Calculated 293 mOsm/kg (285-295); Potassium 4.3 mmol/L (3.5-5.1); Sodium 141 mmol/L (136-145); Total Bilirubin 0.2 mg/dL (0.15-1.2); Total Protein 6.9 g/dL (6.6-8.7)
[2023-11-15 10:30] LABS: Basophils % 0.4 %; Eosinophils # 0.1 10^3/uL (0.0-0.8); Eosinophils % 1.8 %; Hematocrit 36.4 % (37-53); Lymphocytes # 1.9 10^3/uL (0.8-4.8); Lymphocytes % 34.7 %; Mean Corpuscular HGB Conc 32.7 g/dL (30-55); Mean Corpuscular Hemoglobin 27.2 pg (27-33); Mean Corpuscular Volume 83.3 fl (82-101); Mean Platelet Volume 8.9 fL (7.4-10.4); Monocytes # 0.2 10^3/uL (0.2-0.9); Monocytes % 3.9 %; Neutrophils # 3.19 10^3/uL (1.8-7.7); Neutrophils % 58.8 %; Nucleated Red Blood Cells % 0 %; Platelet Count 261 10^3/cmm (157-399); Red Blood Count 4.37 10^6/uL (3.85-5.65); Red Cell Distribution Width 18.3 % (12.1-15.1); White Blood Count 5.42 10^3/uL (3.29-11.43)
== END 2023-11-25 23:59 | disposition home or self-care (01) ==
PROVIDERS: Nurse Practitioner Family; PCP Family Medicine Adult Medicine; Visit Provider Family Medicine Adult Medicine
DX: Z53.9 Procedure and treatment not carried out, unspecified reason (principal)
CPT/HCPCS: 36591; 71046; 80053; 85025; 96367; 96375; 96409; 96413; 96417; J1100; J1200; J1453; J2469; J3490; J7040; J7050; J9000; J9130; J9360

== ENCOUNTER 2023-12-12 07:45 | Oncology outpatient (recurring) (ONCR) | payer MEDICAID, SELFPAY ==
[2023-11-28 07:56] LABS: Basophils % 0.3 %; Eosinophils # 0.1 10^3/uL (0.0-0.8); Hematocrit 38.8 % (37-53); Lymphocytes # 2.9 10^3/uL (0.8-4.8); Lymphocytes % 22.8 %; Mean Corpuscular HGB Conc 32.5 g/dL (30-55); Mean Corpuscular Hemoglobin 27.6 pg (27-33); Mean Corpuscular Volume 84.9 fl (82-101); Mean Platelet Volume 8.6 fL (7.4-10.4); Monocytes # 1.6 10^3/uL (0.2-0.9); Monocytes % 12.7 %; Neutrophils # 7.38 10^3/uL (1.8-7.7); Neutrophils % 58.7 %; Nucleated Red Blood Cells % 0 %; Platelet Count 261 10^3/cmm (157-399); Red Blood Count 4.57 10^6/uL (3.85-5.65); Red Cell Distribution Width 18.2 % (12.1-15.1); White Blood Count 12.59 10^3/uL (3.29-11.43)
[2023-11-28 08:28] LABS: Alanine Aminotransferase 23 U/L (0-41); Albumin Level 4.2 g/dL (3.5-5.2); Alkaline Phosphatase 77 U/L (40-130); Anion Gap 16.1 (5-19); Aspartate Amino Transferase 16 U/L (0-40); Blood Urea Nitrogen 14 mg/dL (6-20); Calcium 9.2 mg/dL (8.5-10.5); Carbon Dioxide 26 mmol/L (22-29); Chloride 105 mmol/L (98-107); Globulin 2.7 g/dL (1.3-4.6); Glomerular Filtration Rate 117.8 mL/min (90-130); Glucose 89 mg/dL (65-115); Osmolality Calculated 296 mOsm/kg (285-295); Potassium 4.1 mmol/L (3.5-5.1); Sodium 143 mmol/L (136-145); Total Bilirubin 0.2 mg/dL (0.15-1.2); Total Protein 6.9 g/dL (6.6-8.7)
[2023-11-28] MEDS: sodium chloride 0.9% 250 ML 75 ML IV (09:44)
[2023-11-28] MEDS: palonosetron 0.25 mg/5 mL SDV IVP (09:45)
[2023-11-28] MEDS: diphenhydrAMINE 50 mg/mL SDV 1mL 25 MG IVP (09:45)
[2023-11-28] MEDS: acetaminophen 325 mg Tablet 650 MG PO (09:45)
[2023-11-28] MEDS: famotidine 20 mg/2 mL INJ IVP (09:48)
[2023-11-28] MEDS: levofloxacin-dextrose 5 % 750 MG/150 ML PREMIX 100 MG IV (10:17)
[2023-11-28] MEDS: fosaprepitant 150 MG in sodium chloride 0.9% 150 ML 300 MG IV (12:05)
[2023-11-28] MEDS: nivolumab 480 MG in sodium chloride 0.9% 250 ML 596 MG IV (12:39)
[2023-11-28] MEDS: DOXOrubicin 2 mg/ml MDV 58 MG IVP (13:27)
[2023-11-28] MEDS: SODIUM CHLORIDE 0.9% IV ×2 (13:35→14:23)
[2023-11-28] MEDS: VINBLASTINE IV (13:35)
[2023-11-28] MEDS: DACARBAZINE IV (14:23)
[2023-11-28 15:51] VITALS: BP 156/90; PULSE 87; RESP 18; TEMP 35.8; O2SAT 98
[2023-12-12 08:10] LABS: Basophils % 0.3 %; Eosinophils # 0.2 10^3/uL (0.0-0.8); Eosinophils % 6.5 %; Lymphocytes # 1.7 10^3/uL (0.8-4.8); Lymphocytes % 57.7 %; Mean Corpuscular HGB Conc 32.6 g/dL (30-55); Mean Corpuscular Hemoglobin 28.5 pg (27-33); Mean Corpuscular Volume 87.4 fl (82-101); Mean Platelet Volume 8.5 fL (7.4-10.4); Monocytes # 0.6 10^3/uL (0.2-0.9); Monocytes % 21.3 %; Neutrophils % 12.8 %; Nucleated Red Blood Cells % 0 %; Platelet Count 235 10^3/cmm (157-399); Red Blood Count 4.35 10^6/uL (3.85-5.65); Red Cell Distribution Width 17.2 % (12.1-15.1); White Blood Count 2.91 10^3/uL (3.29-11.43)
[2023-12-12 08:16] LABS: Neutrophils # 0.37 10^3/uL (1.8-7.7)
[2023-12-12 08:22] LABS: Alanine Aminotransferase 27 U/L (0-41); Alkaline Phosphatase 64 U/L (40-130); Anion Gap 14.8 (5-19); Aspartate Amino Transferase 16 U/L (0-40); Blood Urea Nitrogen 17 mg/dL (6-20); Carbon Dioxide 26 mmol/L (22-29); Chloride 104 mmol/L (98-107); Globulin 2.5 g/dL (1.3-4.6); Glomerular Filtration Rate 137.4 mL/min (90-130); Glucose 88 mg/dL (65-115); Osmolality Calculated 293 mOsm/kg (285-295); Potassium 3.8 mmol/L (3.5-5.1); Sodium 141 mmol/L (136-145); Total Bilirubin 0.2 mg/dL (0.15-1.2); Total Protein 6.5 g/dL (6.6-8.7)
[2023-12-12] MEDS: sodium chloride 0.9% 250 ML 75 ML IV (09:19)
[2023-12-12] MEDS: dexamethasone 4 mg/mL INJ 5 mL 12 MG IVP (09:21)
[2023-12-12] MEDS: palonosetron 0.25 mg/5 mL SDV IVP (09:21)
[2023-12-12] MEDS: diphenhydrAMINE 50 mg/mL SDV 1mL 25 MG IVP (09:23)
[2023-12-12] MEDS: famotidine 20 mg/2 mL INJ IVP (09:25)
[2023-12-12] MEDS: acetaminophen 325 mg Tablet 650 MG PO (09:26)
[2023-12-12] MEDS: fosaprepitant 150 MG in sodium chloride 0.9% 150 ML 300 MG IV (09:27)
[2023-12-12] MEDS: DOXOrubicin 2 mg/ml MDV 58 MG IVP (10:06)
[2023-12-12] MEDS: SODIUM CHLORIDE 0.9% IV ×2 (10:17→10:47)
[2023-12-12] MEDS: VINBLASTINE IV (10:17)
[2023-12-12] MEDS: DACARBAZINE IV (10:47)
[2023-12-12 11:59] VITALS: BP 120/81; PULSE 80; TEMP 36.1; O2SAT 97
== END 2023-12-25 23:59 | disposition home or self-care (01) ==
PROVIDERS: Nurse Practitioner Family; PCP Family Medicine Adult Medicine; Visit Provider Family Medicine Adult Medicine
DX: C78.00 Secondary malignant neoplasm of unspecified lung; Z51.11 Encounter for antineoplastic chemotherapy; Z53.9 Procedure and treatment not carried out, unspecified reason
CPT/HCPCS: 80053; 84443; 85025; 96367; 96375; 96409; 96411; 96413; 96417; J1100; J1200; J1453; J1956; J2469; J3490; J7040; J7050; J9000; J9130; J9299; J9360

== ENCOUNTER 2024-01-23 07:45 | Oncology outpatient (recurring) (ONCR) | payer BC, MEDICAID, SELFPAY ==
[2023-12-26 08:03] LABS: Basophils % 0.6 %; Eosinophils # 0.1 10^3/uL (0.0-0.8); Eosinophils % 1.7 %; Hematocrit 39.1 % (37-53); Lymphocytes % 56.9 %; Mean Corpuscular HGB Conc 32.7 g/dL (30-55); Mean Corpuscular Hemoglobin 28.6 pg (27-33); Mean Corpuscular Volume 87.5 fl (82-101); Mean Platelet Volume 8.5 fL (7.4-10.4); Monocytes # 0.9 10^3/uL (0.2-0.9); Monocytes % 25.7 %; Neutrophils % 12.5 %; Nucleated Red Blood Cells % 0 %; Platelet Count 255 10^3/cmm (157-399); Red Blood Count 4.47 10^6/uL (3.85-5.65); White Blood Count 3.43 10^3/uL (3.29-11.43)
[2023-12-26 08:06] LABS: Neutrophils # 0.43 10^3/uL (1.8-7.7)
[2023-12-26 08:44] LABS: Alanine Aminotransferase 24 U/L (0-41); Albumin Level 4.3 g/dL (3.5-5.2); Alkaline Phosphatase 66 U/L (40-130); Aspartate Amino Transferase 17 U/L (0-40); Blood Urea Nitrogen 16 mg/dL (6-20); Calcium 9.2 mg/dL (8.5-10.5); Carbon Dioxide 27 mmol/L (22-29); Chloride 102 mmol/L (98-107); Creatinine Clr Calc Pharmacy 219.0075; Globulin 2.5 g/dL (1.3-4.6); Glomerular Filtration Rate 137.4 mL/min (90-130); Glucose 96 mg/dL (65-115); Osmolality Calculated 291 mOsm/kg (285-295); Sodium 140 mmol/L (136-145); Thyroid Stimulating Hormone 2.63 uIU/mL (0.27-4.20); Total Bilirubin 0.2 mg/dL (0.15-1.2); Total Protein 6.8 g/dL (6.6-8.7)
[2023-12-26 08:54] LABS: Anion Gap 14.9 (5-19); Lactate Dehydrogenase 192 U/L (135-225); Potassium 3.9 mmol/L (3.5-5.1)
[2023-12-26] MEDS: acetaminophen 325 mg Tablet 650 MG PO (09:29)
[2023-12-26] MEDS: sodium chloride 0.9% 250 ML 75 ML IV (09:29)
[2023-12-26] MEDS: palonosetron 0.25 mg/5 mL SDV IVP (09:32)
[2023-12-26] MEDS: famotidine 20 mg/2 mL INJ IVP (09:34)
[2023-12-26] MEDS: diphenhydrAMINE 50 mg/mL SDV 1mL 25 MG IVP (09:37)
[2023-12-26] MEDS: fosaprepitant 150 MG in sodium chloride 0.9% 150 ML 300 MG IV (09:38)
[2023-12-26] MEDS: nivolumab 480 MG in sodium chloride 0.9% 250 ML 596 MG IV (10:24)
[2023-12-26] MEDS: DOXOrubicin 2 mg/ml MDV 58 MG IVP (11:24)
[2023-12-26] MEDS: VINBLASTINE IV (11:38)
[2023-12-26] MEDS: SODIUM CHLORIDE 0.9% IV ×2 (11:38→12:06)
[2023-12-26] MEDS: DACARBAZINE IV (12:06)
[2023-12-26 13:37] VITALS: BP 138/82; PULSE 82; RESP 16; O2SAT 98
[2024-01-03 10:24] LABS: Basophils % 0.4 %; Eosinophils # 0.1 10^3/uL (0.0-0.8); Eosinophils % 2.2 %; Hematocrit 36.8 % (37-53); Lymphocytes # 1.7 10^3/uL (0.8-4.8); Lymphocytes % 37.5 %; Mean Corpuscular HGB Conc 33.2 g/dL (30-55); Mean Corpuscular Volume 87.6 fl (82-101); Mean Platelet Volume 8.7 fL (7.4-10.4); Monocytes # 0.2 10^3/uL (0.2-0.9); Monocytes % 4.6 %; Neutrophils # 2.53 10^3/uL (1.8-7.7); Neutrophils % 54.9 %; Nucleated Red Blood Cells % 0 %; Platelet Count 257 10^3/cmm (157-399); White Blood Count 4.61 10^3/uL (3.29-11.43)
[2024-01-03 10:58] LABS: Alanine Aminotransferase 30 U/L (0-41); Albumin Level 4.1 g/dL (3.5-5.2); Alkaline Phosphatase 66 U/L (40-130); Aspartate Amino Transferase 20 U/L (0-40); Blood Urea Nitrogen 17 mg/dL (6-20); Calcium 9.1 mg/dL (8.5-10.5); Carbon Dioxide 26 mmol/L (22-29); Chloride 103 mmol/L (98-107); Creatinine Clr Calc Pharmacy 191.6315; Globulin 2.7 g/dL (1.3-4.6); Glomerular Filtration Rate 117.8 mL/min (90-130); Glucose 90 mg/dL (65-115); Osmolality Calculated 291 mOsm/kg (285-295); Sodium 140 mmol/L (136-145); Total Bilirubin 0.2 mg/dL (0.15-1.2); Total Protein 6.8 g/dL (6.6-8.7)
[2024-01-09 08:42] LABS: Basophils % 0.3 %; Eosinophils # 0.1 10^3/uL (0.0-0.8); Eosinophils % 2.6 %; Lymphocytes # 1.8 10^3/uL (0.8-4.8); Lymphocytes % 45.5 %; Mean Corpuscular HGB Conc 32.9 g/dL (30-55); Mean Corpuscular Volume 88.2 fl (82-101); Mean Platelet Volume 8.8 fL (7.4-10.4); Monocytes # 0.9 10^3/uL (0.2-0.9); Monocytes % 22.2 %; Neutrophils # 1.09 10^3/uL (1.8-7.7); Neutrophils % 28.1 %; Nucleated Red Blood Cells % 0 %; Platelet Count 244 10^3/cmm (157-399); Red Blood Count 4.31 10^6/uL (3.85-5.65); Red Cell Distribution Width 15.6 % (12.1-15.1); White Blood Count 3.87 10^3/uL (3.29-11.43)
[2024-01-09 09:02] LABS: Alanine Aminotransferase 31 U/L (0-41); Albumin Level 4.2 g/dL (3.5-5.2); Alkaline Phosphatase 63 U/L (40-130); Aspartate Amino Transferase 17 U/L (0-40); Blood Urea Nitrogen 16 mg/dL (6-20); Carbon Dioxide 24 mmol/L (22-29); Chloride 104 mmol/L (98-107); Creatinine Clr Calc Pharmacy 223.5609; Globulin 2.4 g/dL (1.3-4.6); Glomerular Filtration Rate 137.4 mL/min (90-130); Glucose 91 mg/dL (65-115); Osmolality Calculated 291 mOsm/kg (285-295); Sodium 140 mmol/L (136-145); Total Bilirubin 0.2 mg/dL (0.15-1.2); Total Protein 6.6 g/dL (6.6-8.7)
[2024-01-09] MEDS: acetaminophen 325 mg Tablet 650 MG PO (09:15)
[2024-01-09] MEDS: sodium chloride 0.9% 250 ML 75 ML IV (09:15)
[2024-01-09] MEDS: palonosetron 0.25 mg/5 mL SDV IVP (09:16)
[2024-01-09] MEDS: dexamethasone 4 mg/mL INJ 5 mL 12 MG IV (09:17)
[2024-01-09] MEDS: diphenhydrAMINE 50 mg/mL SDV 1mL 25 MG IVP (09:21)
[2024-01-09] MEDS: famotidine 20 mg/2 mL INJ IVP (09:24)
[2024-01-09] MEDS: fosaprepitant 150 MG in sodium chloride 0.9% 150 ML 300 MG IV (09:27)
[2024-01-09] MEDS: DOXOrubicin 2 mg/ml MDV 58 MG IVP (10:16)
[2024-01-09] MEDS: SODIUM CHLORIDE 0.9% IV ×2 (10:25→10:55)
[2024-01-09] MEDS: VINBLASTINE IV (10:25)
[2024-01-09] MEDS: DACARBAZINE IV (10:55)
[2024-01-09 12:19] VITALS: BP 126/83; PULSE 82; TEMP 35.8; O2SAT 97
[2024-01-16 11:44] LABS: Basophils % 0.5 %; Eosinophils # 0.1 10^3/uL (0.0-0.8); Eosinophils % 2.4 %; Hematocrit 35.2 % (37-53); Lymphocytes # 1.3 10^3/uL (0.8-4.8); Lymphocytes % 30.2 %; Mean Corpuscular HGB Conc 33.8 g/dL (30-55); Mean Corpuscular Hemoglobin 29.5 pg (27-33); Mean Corpuscular Volume 87.3 fl (82-101); Mean Platelet Volume 8.5 fL (7.4-10.4); Monocytes # 0.2 10^3/uL (0.2-0.9); Monocytes % 4.3 %; Neutrophils # 2.57 10^3/uL (1.8-7.7); Neutrophils % 62.1 %; Nucleated Red Blood Cells % 0 %; Platelet Count 254 10^3/cmm (157-399); Red Blood Count 4.03 10^6/uL (3.85-5.65); Red Cell Distribution Width 14.6 % (12.1-15.1); White Blood Count 4.14 10^3/uL (3.29-11.43)
[2024-01-16 12:04] LABS: Alanine Aminotransferase 31 U/L (0-41); Alkaline Phosphatase 63 U/L (40-130); Anion Gap 15.1 (5-19); Aspartate Amino Transferase 17 U/L (0-40); Blood Urea Nitrogen 13 mg/dL (6-20); Calcium 8.9 mg/dL (8.5-10.5); Carbon Dioxide 25 mmol/L (22-29); Chloride 104 mmol/L (98-107); Creatinine Clr Calc Pharmacy 223.5609; Globulin 2.5 g/dL (1.3-4.6); Glomerular Filtration Rate 137.4 mL/min (90-130); Glucose 87 mg/dL (65-115); Osmolality Calculated 289 mOsm/kg (285-295); Potassium 4.1 mmol/L (3.5-5.1); Sodium 140 mmol/L (136-145); Total Bilirubin 0.2 mg/dL (0.15-1.2); Total Protein 6.5 g/dL (6.6-8.7)
[2024-01-23 08:09] LABS: Basophils % 0.4 %; Eosinophils # 0.1 10^3/uL (0.0-0.8); Eosinophils % 2.9 %; Hematocrit 37.9 % (37-53); Lymphocytes # 1.3 10^3/uL (0.8-4.8); Lymphocytes % 55.9 %; Mean Corpuscular HGB Conc 33.2 g/dL (30-55); Mean Corpuscular Hemoglobin 29.2 pg (27-33); Mean Corpuscular Volume 87.9 fl (82-101); Mean Platelet Volume 8.6 fL (7.4-10.4); Monocytes # 0.5 10^3/uL (0.2-0.9); Monocytes % 21.4 %; Neutrophils % 17.7 %; Nucleated Red Blood Cells % 0 %; Platelet Count 228 10^3/cmm (157-399); Red Blood Count 4.31 10^6/uL (3.85-5.65); Red Cell Distribution Width 15.2 % (12.1-15.1); White Blood Count 2.38 10^3/uL (3.29-11.43)
[2024-01-23 08:33] LABS: Alanine Aminotransferase 28 U/L (0-41); Alkaline Phosphatase 72 U/L (40-130); Aspartate Amino Transferase 19 U/L (0-40); Blood Urea Nitrogen 18 mg/dL (6-20); Calcium 8.7 mg/dL (8.5-10.5); Carbon Dioxide 23 mmol/L (22-29); Chloride 106 mmol/L (98-107); Creatinine Clr Calc Pharmacy 173.8807; Globulin 2.6 g/dL (1.3-4.6); Glomerular Filtration Rate 102.8 mL/min (90-130); Glucose 105 mg/dL (65-115); Neutrophils # 0.42 10^3/uL (1.8-7.7); Osmolality Calculated 294 mOsm/kg (285-295); Sodium 141 mmol/L (136-145); Total Bilirubin 0.2 mg/dL (0.15-1.2); Total Protein 6.6 g/dL (6.6-8.7)
[2024-01-23 09:15] VITALS: BP 117/76; PULSE 85; RESP 16; TEMP 35.9; O2SAT 96
[2024-01-23] MEDS: sodium chloride 0.9% 250 ML 75 ML IV (09:48)
[2024-01-23] MEDS: palonosetron 0.25 mg/5 mL SDV IVP (09:50)
[2024-01-23] MEDS: OLANZapine 5 mg TABLET PO (09:54)
[2024-01-23] MEDS: famotidine 20 mg/2 mL INJ IVP (09:54)
[2024-01-23] MEDS: diphenhydrAMINE 50 mg/mL SDV 1mL 25 MG IVP (09:59)
[2024-01-23] MEDS: dexamethasone 4 mg/mL INJ 12 MG IVP (10:06)
[2024-01-23] MEDS: fosaprepitant 150 MG in sodium chloride 0.9% 150 ML 300 MG IV (10:35)
[2024-01-23] MEDS: nivolumab 480 MG in sodium chloride 0.9% 250 ML 596 MG IV (11:20)
[2024-01-23] MEDS: DOXOrubicin 2 mg/ml MDV 62 MG IVP (12:04)
[2024-01-23] MEDS: VINBLASTINE IV (12:14)
[2024-01-23] MEDS: SODIUM CHLORIDE 0.9% IV ×2 (12:14→12:36)
[2024-01-23] MEDS: DACARBAZINE IV (12:36)
[2024-01-23] MEDS: sodium chloride 0.9% (100 ml) 100 ML 75 ML (13:00)
[2024-01-23 14:13] VITALS: BP 113/80; PULSE 79; O2SAT 97
== END 2024-01-23 23:59 | disposition home or self-care (01) ==
PROVIDERS: Nurse Practitioner Family; PCP Family Medicine Adult Medicine; Visit Provider Family Medicine Adult Medicine
DX: Z51.12 Encounter for antineoplastic immunotherapy (principal); Z53.9 Procedure and treatment not carried out, unspecified reason; Z51.11 Encounter for antineoplastic chemotherapy; Z79.899 Other long term (current) drug therapy; C78.00 Secondary malignant neoplasm of unspecified lung; C80.1 Malignant (primary) neoplasm, unspecified
CPT/HCPCS: 36591; 80053; 83615; 84443; 85025; 96365; 96367; 96375; 96409; 96411; 96413; 96417; A4222; J1100; J1200; J1453; J2469; J3490; J7040; J7050; J9000; J9130; J9299; J9360

== ENCOUNTER 2024-02-06 08:07 | Oncology outpatient (recurring) (ONCR) | payer BC, MEDICAID, SELFPAY ==
[2024-02-06 08:56] LABS: Basophils % 0.7 %; Eosinophils # 0.1 10^3/uL (0.0-0.8); Eosinophils % 3.2 %; Hematocrit 37.8 % (37-53); Lymphocytes # 1.4 10^3/uL (0.8-4.8); Lymphocytes % 51.2 %; Mean Corpuscular HGB Conc 32.8 g/dL (30-55); Mean Corpuscular Hemoglobin 29.2 pg (27-33); Mean Corpuscular Volume 89.2 fl (82-101); Mean Platelet Volume 9.3 fL (7.4-10.4); Monocytes # 0.8 10^3/uL (0.2-0.9); Monocytes % 27.4 %; Neutrophils % 15.7 %; Nucleated Red Blood Cells % 0 %; Platelet Count 250 10^3/cmm (157-399); Positive M 1; Red Blood Count 4.24 10^6/uL (3.85-5.65); Red Cell Distribution Width 15.2 % (12.1-15.1); White Blood Count 2.81 10^3/uL (3.29-11.43)
[2024-02-06 09:01] LABS: Neutrophils # 0.44 10^3/uL (1.8-7.7)
[2024-02-06 09:14] LABS: Alanine Aminotransferase 31 U/L (0-41); Albumin Level 4.2 g/dL (3.5-5.2); Alkaline Phosphatase 73 U/L (40-130); Aspartate Amino Transferase 20 U/L (0-40); Blood Urea Nitrogen 15 mg/dL (6-20); Calcium 8.7 mg/dL (8.5-10.5); Carbon Dioxide 23 mmol/L (22-29); Chloride 105 mmol/L (98-107); Creatinine Clr Calc Pharmacy 200.6878; Globulin 2.8 g/dL (1.3-4.6); Glomerular Filtration Rate 117.8 mL/min (90-130); Glucose 102 mg/dL (65-115); Osmolality Calculated 293 mOsm/kg (285-295); Sodium 141 mmol/L (136-145); Total Bilirubin 0.2 mg/dL (0.15-1.2)
[2024-02-06 09:41] LABS: Anion Gap 16.7 (5-19); Potassium 3.7 mmol/L (3.5-5.1)
[2024-02-06] MEDS: OLANZapine 5 mg TABLET PO (09:55)
[2024-02-06] MEDS: sodium chloride 0.9% 250 ML 75 ML IV (09:56)
[2024-02-06] MEDS: diphenhydrAMINE 50 mg/mL SDV 1mL 25 MG IVP (09:57)
[2024-02-06] MEDS: palonosetron 0.25 mg/5 mL SDV IVP (09:58)
[2024-02-06] MEDS: famotidine 20 mg/2 mL INJ IVP (10:01)
[2024-02-06] MEDS: dexamethasone 4 mg/mL INJ 12 MG IVP (10:02)
[2024-02-06] MEDS: fosaprepitant 150 MG in sodium chloride 0.9% 150 ML 300 MG IV (10:07)
[2024-02-06] MEDS: DOXOrubicin 2 mg/ml MDV 62 MG IVP (11:26)
[2024-02-06] MEDS: VINBLASTINE IV (11:38)
[2024-02-06] MEDS: SODIUM CHLORIDE 0.9% IV ×2 (11:38→12:22)
[2024-02-06] MEDS: sodium chloride 0.9% (100 ml) 100 ML 75 ML (11:39)
[2024-02-06] MEDS: DACARBAZINE IV (12:22)
[2024-02-06 13:57] VITALS: BP 129/78; PULSE 93; RESP 16; TEMP 36.6; O2SAT 98
== END 2024-02-25 23:59 | disposition home or self-care (01) ==
LOC: ONCMED 08:07
PROVIDERS: Internal Medicine Medical Oncology; PCP Family Medicine Adult Medicine; Visit Provider Family Medicine Adult Medicine
DX: C78.00 Secondary malignant neoplasm of unspecified lung; Z51.11 Encounter for antineoplastic chemotherapy; C81.10 Nodular sclerosis Hodgkin lymphoma, unspecified site; Z79.899 Other long term (current) drug therapy; Z79.52 Long term (current) use of systemic steroids
CPT/HCPCS: 80053; 85025; 96367; 96375; 96411; 96413; 96417; J1100; J1200; J1453; J2469; J3490; J7040; J7050; J9000; J9130; J9360

== ENCOUNTER 2024-02-21 08:12 | Outpatient (CLI) | payer BC, MEDICAID, SELFPAY ==
--- NOTE | 2024-02-21 08:30 | PETR_ITS ---
PROCEDURE INFORMATION: Exam: PET/CT Skull Base to Mid-thigh Exam date and time: 02/21/2024 9:07 AM Age: 23 years old Clinical indication: Condition or disease; Primary cancer: Hodgkins lymphoma, nodular sclerosis; Follow-up oncological assessment; Prior surgery; Surgery date: 6+ months; Surgery type: Port; Additional info: Restaging LABS AND CLINICAL REPORTS: Glucose: 85 mg/dl Treatment strategy for malignancy (PET staging): Restaging (PS) TECHNIQUE: Imaging protocol: Following at least four-hour fasting and following the injection of radiopharmaceutical, low dose CT images were obtained. Then, PET images were obtained. Attenuation corrected images were constructed using the CT scan. Fused images of PET and CT were reviewed. The standardized uptake values (SUV) reported below are maximum values within a region of interest, expressed in gm/ml. Exam includes orbital meatal line to mid-thigh. Radiopharmaceutical: 11.55 mCi F-18 FDG (Fluorodeoxyglucose), IV. Time of imaging post radiopharmaceutical administration: 1 hour Injection site: Right hand COMPARISON: PT PET skull to thigh SUBS [id number] 10/18/2023 FINDINGS: Tubes, catheters and devices: Port catheter placed via the left subclavian vein terminates in the superior vena cava. Brain: Visualized brain has normal physiologic uptake. Paranasal sinuses: No abnormal uptake. Mucosal thickening in bilateral maxillary sinuses with no air-fluid levels increased since prior exam suggestive of progressive chronic sinusitis. Pharynx: No abnormal uptake. Larynx: No abnormal uptake. Lungs, pleura and trachea: No abnormal uptake. Innumerable peribronchial nodules present on the prior exam decreased in size and partially resolved. Subtle areas of secondary lobe thickening in the lower lobes are less prominent since prior exam. Previously present right pleural effusion has resolved. Heart: Normal physiologic uptake. There is no cardiomegaly. There is no pericardial effusion. Mediastinal space: No abnormal uptake. There is a small hiatal hernia. Liver: No abnormal uptake. Gallbladder and biliary ducts: No abnormal uptake. No calcified gallstones. Pancreas: No abnormal uptake. Spleen: No abnormal uptake. No splenomegaly. Adrenal glands: No abnormal uptake. No nodules. Kidneys and ureters: Stable horseshoe kidney with moderately dilated calyces in the upper aspect of the right moiety associated with multiple large stones measuring up to 2 cm. No hydronephrosis in the left moiety. Stomach and bowel: No abnormal uptake. Vasculature: No abnormal uptake. Lymph nodes: No abnormal uptake. Persistent non FDG avid mediastinal and right hilar lymphadenopathy with slight interval decrease in size. At the anterior-posterior diameter of the right subcarinal lymph node on axial image 263 decreased from 2.4 cm to 2 cm. Short axis of the right anterior hilar lymph node on axial image 274 decreased from 2.2 cm to 1.4 cm. Bilateral supraclavicular lymph nodes decreased in size. For example, the left supraclavicular lymph node on axial image 301 decreased in short axis from 1.6 cm to 1.3 cm. Previously mildly enlarged retroperitoneal lymph nodes decreased to subcentimeter size in the short axis. No pelvic or inguinal lymphadenopathy. Skeleton: No abnormal uptake in the visualized axial and appendicular skeleton. Soft tissues: No abnormal uptake in the visualized head, neck, chest, abdomen, pelvis, and extremities. PET/PET skull to thigh SUBS [id number] IMPRESSION: Persistent lack of abnormal radiotracer uptake suggestive of complete metabolic response to treatment. In comparison with 10/18/2023 there is further morphologic response with interval decreased size of supraclavicular, mediastinal and right hilar lymph nodes with mild enlargement of the residual nodes. Previously mildly enlarged retroperitoneal lymph nodes decreased to normal size. Abnormal findings in the lungs suggestive of lymphomatous involvement have significantly partially resolved with only minimal residual nodularity and thickening of the secondary pulmonary lobules.
== END 2024-02-21 08:13 | disposition home or self-care (01) ==
PROVIDERS: PCP Family Medicine Adult Medicine; Visit Provider Nurse Practitioner Family
DX: C81.10 Nodular sclerosis Hodgkin lymphoma, unspecified site (principal); Z95.828 Presence of other vascular implants and grafts; J32.0 Chronic maxillary sinusitis; J92.9 Pleural plaque without asbestos; K44.9 Diaphragmatic hernia without obstruction or gangrene; N20.0 Calculus of kidney; R59.0 Localized enlarged lymph nodes; R93.89 Abnormal findings on diagnostic imaging of other specified body structures
CPT/HCPCS: 78815; A9552

== ENCOUNTER 2024-03-01 07:38 | Oncology outpatient (recurring) (ONCR) | payer BC, MEDICAID, SELFPAY ==
[2024-03-01 08:00] LABS: Basophils % 0.3 %; Eosinophils # 0.1 10^3/uL (0.0-0.8); Eosinophils % 1.5 %; Hematocrit 39.6 % (37-53); Lymphocytes # 1.6 10^3/uL (0.8-4.8); Lymphocytes % 17.1 %; Mean Corpuscular HGB Conc 32.6 g/dL (30-55); Mean Corpuscular Hemoglobin 29.8 pg (27-33); Mean Corpuscular Volume 91.5 fl (82-101); Mean Platelet Volume 9.1 fL (7.4-10.4); Monocytes % 10.4 %; Neutrophils # 6.54 10^3/uL (1.8-7.7); Neutrophils % 69.4 %; Nucleated Red Blood Cells % 0 %; Platelet Count 259 10^3/cmm (157-399); Red Blood Count 4.33 10^6/uL (3.85-5.65); Red Cell Distribution Width 14.8 % (12.1-15.1); White Blood Count 9.42 10^3/uL (3.29-11.43)
[2024-03-01 08:20] LABS: Alanine Aminotransferase 25 U/L (0-41); Albumin Level 4.1 g/dL (3.5-5.2); Alkaline Phosphatase 78 U/L (40-130); Blood Urea Nitrogen 15 mg/dL (6-20); Calcium 8.4 mg/dL (8.5-10.5); Carbon Dioxide 25 mmol/L (22-29); Chloride 104 mmol/L (98-107); Globulin 2.5 g/dL (1.3-4.6); Glomerular Filtration Rate 117.8 mL/min (90-130); Glucose 84 mg/dL (65-115); Osmolality Calculated 294 mOsm/kg (285-295); Sodium 142 mmol/L (136-145); Total Bilirubin 0.2 mg/dL (0.15-1.2); Total Protein 6.6 g/dL (6.6-8.7)
[2024-03-01 08:24] LABS: Anion Gap 16.9 (5-19); Aspartate Amino Transferase 20 U/L (0-40); Lactate Dehydrogenase 216 U/L (135-225); Potassium 3.9 mmol/L (3.5-5.1)
== END 2024-03-26 23:59 | disposition home or self-care (01) ==
PROVIDERS: Internal Medicine Medical Oncology; PCP Family Medicine Adult Medicine; Visit Provider Family Medicine Adult Medicine
DX: C81.10 Nodular sclerosis Hodgkin lymphoma, unspecified site; C78.00 Secondary malignant neoplasm of unspecified lung; Z79.899 Other long term (current) drug therapy; Z79.52 Long term (current) use of systemic steroids
CPT/HCPCS: 36591; 80053; 83615; 85025

== ENCOUNTER 2024-04-26 14:15 | Oncology outpatient (recurring) (ONCR) | payer BC, MEDICAID, SELFPAY | END 2024-04-26 23:59 | disposition home or self-care (01) | PROVIDERS: PCP Family Medicine Adult Medicine; Visit Provider Family Medicine Adult Medicine | DX: Z45.2 Encounter for adjustment and management of vascular access device (principal) | CPT/HCPCS: 96523 ==

== ENCOUNTER 2024-05-30 10:10 | Outpatient (CLI) | payer BC, MEDICAID, SELFPAY ==
--- NOTE | 2024-05-30 10:15 | CT_ITS ---
WS: [id number] CT CHEST, ABDOMEN AND PELVIS WITH CONTRAST HISTORY: Follow-up Hodgkin's lymphoma. TECHNIQUE: Contiguous 5 mm axial imaging performed through the chest, abdomen and pelvis with IV cont rast, oral contrast has been provided. Coronal and sagittal reformats chest. Coronal and sagittal ref ormats through the abdomen and pelvis. All CT scans at [facility] use at least one of these d ose optimization techniques: automated exposure control; mA and/or kV adjustment per patient size (in cludes targeted exams where dose is matched to clinical indication); or iterative reconstruction. CONTRAST: Omnipaque 350; 100 mL IV. DLP: 1964.68 mGy.cm COMPARISON: PET/CT 02/21/2024, prior CT 09/04/[address]: LEFT subclavian Mediport remains in good position with tip in the distal SVC. As compared t o the prior CT of 09/04/2023 there has been a marked improvement in the axillary, mediastinal and lux r adenopathy. Small LEFT axillary lymph nodes with the largest measuring 17 mm. There are small media stinal and hilar lymph nodes which are close to the size of the lymph nodes on 02/21/2024 PET/CT. Mild bilateral peribronchial wall thickening at the hilum. Small perihilar lymph nodes measuring up to 1. 3 cm. Heart remains normal size. No pericardial or pleural effusions. Marked improvement of airspace disease and the pulmonary consolidations as compared to 09/04/2023. There are a few scattered very sma ll pulmonary nodules. No pulmonary mass. Abdomen CT: Significant decrease in size of the liver since 09/04/2023. Coronal measurement has decrea sed from 20.7 cm to 16.7 cm. Both the RIGHT and LEFT lobes of the liver have returned to normal calib er. Normal hepatic enhancement. Normal portal vein. Normal gallbladder. No adrenal mass. Normal pancr eas. Spleen has significantly decreased in size. Prior measurement 17.0 cm. Today's measurement 11.7 cm. Horseshoe kidneys are identified. There are dilated RIGHT upper pole calyces with calcifications laye ring in the calyces this has been previously described. No obstruction of either ureter. Normal abdom inal aorta. Normal stomach and small bowel. No colon obstruction. Normal appendix. Previously described mesenteric and retroperitoneal adenopathy has significantly improved. There are a few small retroperitoneal lymph nodes no pelvic adenopathy. No retrocrural lymph nodes. Pelvic CT: No free fluid. No adenopathy. Normal urinary bladder. No inguinal lymph nodes. No lytic or sclerotic bone lesions. Degenerative changes are noted within the thoracic and lumbar spi ne. Components of central stenosis are noted in the thoracic and lumbar spine which is probably conge nital. CT/CT chest abdpel w/*[id number] IMPRESSION: 1. Significant interval improvement of adenopathy in the chest, abdomen and pe lvis since 09/04/2023. On the recent PET/CT of 02/21/2024 no FDG avid lymph nodes were identified. 2. Complete interval resolution of the previously described bilateral pleural effusions and the extensive pulmonary opacifications. 3. There are a few scattered very small pulmonary nodules remaining. These can be reevaluated on follow-up CT of examinations. 4. Significant improvement in size of the spleen and liver since 09/04/2023. 5. Calyceal dilatation with layering calcifications upper pole RIGHT kidney. 6. Horseshoe kidneys.
[2024-05-30] MEDS: iohexol 350 mg/mL 500 mL Btl (per mL) PO (10:23)
[2024-05-30] MEDS: iohexol 350 mg/mL 500 mL Btl (per mL) IV (11:32)
== END 2024-05-30 10:11 | disposition home or self-care (01) ==
LOC: RAD 10:11
PROVIDERS: PCP Family Medicine Adult Medicine; Visit Provider Internal Medicine Medical Oncology
DX: C81.13 Nodular sclerosis Hodgkin lymphoma, intra-abdominal lymph nodes (principal); R59.0 Localized enlarged lymph nodes; R91.8 Other nonspecific abnormal finding of lung field; N20.0 Calculus of kidney; Q63.1 Lobulated, fused and horseshoe kidney; M48.04 Spinal stenosis, thoracic region; M48.061 Spinal stenosis, lumbar region without neurogenic claudication
CPT/HCPCS: 71260; 74177

== ENCOUNTER 2024-05-31 11:11 | Oncology outpatient (recurring) (ONCR) | payer BC, MEDICAID, SELFPAY ==
[2024-05-31 11:40] LABS: Basophils % 0.3 %; Eosinophils # 0.1 10^3/uL (0.0-0.8); Eosinophils % 1.8 %; Hematocrit 42.8 % (37-53); Lymphocytes # 1.4 10^3/uL (0.8-4.8); Lymphocytes % 17.9 %; Mean Corpuscular HGB Conc 33.6 g/dL (30-55); Mean Corpuscular Hemoglobin 29.2 pg (27-33); Mean Corpuscular Volume 86.8 fl (82-101); Mean Platelet Volume 8.8 fL (7.4-10.4); Monocytes # 0.6 10^3/uL (0.2-0.9); Monocytes % 7.3 %; Neutrophils # 5.56 10^3/uL (1.8-7.7); Neutrophils % 72.4 %; Nucleated Red Blood Cells % 0 %; Platelet Count 230 10^3/cmm (157-399); Red Blood Count 4.93 10^6/uL (3.85-5.65); Red Cell Distribution Width 12.9 % (12.1-15.1); White Blood Count 7.67 10^3/uL (3.29-11.43)
[2024-05-31 12:29] LABS: Alanine Aminotransferase 38 U/L (0-41); Albumin Level 4.2 g/dL (3.5-5.2); Alkaline Phosphatase 104 U/L (40-130); Aspartate Amino Transferase 20 U/L (0-40); Blood Urea Nitrogen 11 mg/dL (6-20); Calcium 9.1 mg/dL (8.5-10.5); Carbon Dioxide 25 mmol/L (22-29); Chloride 103 mmol/L (98-107); Creatinine Clr Calc Pharmacy 191.5907; Globulin 3.1 g/dL (1.3-4.6); Glomerular Filtration Rate 102.8 mL/min (90-130); Glucose 114 mg/dL (65-115); Iron 39 ug/dL (59-158); Lactate Dehydrogenase 156 U/L (135-225); Osmolality Calculated 288 mOsm/kg (285-295); Percent Saturation 14.1 % (20-50); Sodium 139 mmol/L (136-145); Total Bilirubin 0.3 mg/dL (0.15-1.2); Total Iron Binding Capacity 275 mcg/dl; Total Protein 7.3 g/dL (6.6-8.7); Unsaturated Iron Binding 236 ug/dL (112-347)
== END 2024-06-26 23:59 | disposition home or self-care (01) ==
PROVIDERS: Internal Medicine Medical Oncology; PCP Family Medicine Adult Medicine; Visit Provider Family Medicine Adult Medicine
DX: C81.10 Nodular sclerosis Hodgkin lymphoma, unspecified site; E61.1 Iron deficiency
CPT/HCPCS: 36591; 80053; 83540; 83550; 83615; 85025

== ENCOUNTER 2024-07-12 15:02 | Oncology outpatient (recurring) (ONCR) | payer BC, MEDICAID, SELFPAY | END 2024-07-27 23:59 | disposition home or self-care (01) | PROVIDERS: PCP Family Medicine Adult Medicine; Visit Provider Family Medicine Adult Medicine | DX: Z53.9 Procedure and treatment not carried out, unspecified reason; Z45.2 Encounter for adjustment and management of vascular access device; Z95.828 Presence of other vascular implants and grafts | CPT/HCPCS: 96523 ==

== ENCOUNTER 2024-09-05 08:30 | Oncology outpatient (recurring) (ONCR) | payer BC, MEDICAID, SELFPAY ==
[2024-08-29 12:37] LABS: Basophils % 0.2 %; Eosinophils # 0.1 10^3/uL (0.0-0.8); Eosinophils % 0.9 %; Hematocrit 43.8 % (37-53); Lymphocytes # 1.9 10^3/uL (0.8-4.8); Lymphocytes % 21.1 %; Mean Corpuscular HGB Conc 32.9 g/dL (30-55); Mean Platelet Volume 8.9 fL (7.4-10.4); Monocytes # 0.5 10^3/uL (0.2-0.9); Monocytes % 5.6 %; Neutrophils # 6.49 10^3/uL (1.8-7.7); Neutrophils % 71.9 %; Nucleated Red Blood Cells % 0 %; Platelet Count 239 10^3/cmm (157-399); Red Blood Count 5.15 10^6/uL (3.85-5.65); Red Cell Distribution Width 13.3 % (12.1-15.1); White Blood Count 9.04 10^3/uL (3.29-11.43)
[2024-08-29 12:58] LABS: Alanine Aminotransferase 41 U/L (0-41); Albumin Level 4.1 g/dL (3.5-5.2); Alkaline Phosphatase 125 U/L (40-130); Anion Gap 13.9 (5-19); Aspartate Amino Transferase 20 U/L (0-40); Blood Urea Nitrogen 14 mg/dL (6-20); Carbon Dioxide 23 mmol/L (22-29); Chloride 103 mmol/L (98-107); Ferritin 299 ng/mL (30-400); Glomerular Filtration Rate 102.8 mL/min (90-130); Glucose 100 mg/dL (65-115); Iron 44 ug/dL (59-158); Lactate Dehydrogenase 198 U/L (135-225); Osmolality Calculated 283 mOsm/kg (285-295); Percent Saturation 16.2 % (20-50); Potassium 3.9 mmol/L (3.5-5.1); Sodium 136 mmol/L (136-145); Total Bilirubin 0.2 mg/dL (0.15-1.2); Total Iron Binding Capacity 270 mcg/dl; Total Protein 7.1 g/dL (6.6-8.7); Unsaturated Iron Binding 226 ug/dL (112-347)
== END 2024-09-24 23:59 | disposition home or self-care (01) ==
PROVIDERS: Nurse Practitioner Family; PCP Family Medicine Adult Medicine; Visit Provider Internal Medicine
DX: Z45.2 Encounter for adjustment and management of vascular access device (principal)
CPT/HCPCS: 36591; 80053; 82728; 83540; 83550; 83615; 85025; 96523

== ENCOUNTER 2024-09-05 08:42 | Outpatient (CLI) | payer BC, MEDICAID, SELFPAY ==
--- NOTE | 2024-09-05 08:44 | CTR_ITS ---
PROCEDURE INFORMATION: Exam: CT Chest With Contrast; Diagnostic Exam date and time: 09/05/2024 9:30 AM Age: 23 years old Clinical indication: Condition or disease; Other: Hodgkin's lymphoma; Prior surgery; Surgery date: 6+ months; Surgery type: Port; Additional info: Surveillance TECHNIQUE: Imaging protocol: Diagnostic computed tomography of the chest with contrast. Radiation optimization: All CT scans at this facility use at least one of these dose optimization techniques: automated exposure control; mA and/or kV adjustment per patient size (includes targeted exams where dose is matched to clinical indication); or iterative reconstruction. Contrast material: OMNI 350; Contrast volume: 100 ml; Contrast route: INTRAVENOUS (IV); COMPARISON: CT chest abdpel w/*[id number] 05/30/2024 11:21 AM RADIATION DOSE METRICS: Total DLP (mGy-cm): 2443.53 FINDINGS: Tubes, catheters and devices: Left chest wall port tip terminates in the upper SVC. Lungs: No focal consolidation. Similar scattered reticular and tree-in-bud opacities in the left upper and lower lobes. Pleural spaces: Unremarkable. No pneumothorax. No pleural effusion. Heart: Unremarkable. No cardiomegaly. No pericardial effusion. Coronary arteries: No coronary artery calcifications. Lymph nodes: Slightly interval decreased size of left axillary lymph nodes now measuring up to 1 cm in short axis, previously 1.2 cm. Similar appearance of small mediastinal and hilar lymph nodes/soft tissue. Vasculature: Unremarkable. No aortic aneurysm. Bones/joints: Unremarkable. No acute fracture. Soft tissues: See Lymph nodes finding. PROCEDURE INFORMATION: Exam: CT Abdomen And Pelvis With Contrast Exam date and time: 09/05/2024 9:30 AM Age: 23 years old Clinical indication: Condition or disease; Other: Hodgkin's lymphoma; Prior surgery; Surgery date: 6+ months; Surgery type: Port; Additional info: Surveillance TECHNIQUE: Imaging protocol: Computed tomography of the abdomen and pelvis with contrast. Radiation optimization: All CT scans at this facility use at least one of these dose optimization techniques: automated exposure control; mA and/or kV adjustment per patient size (includes targeted exams where dose is matched to clinical indication); or iterative reconstruction. Contrast material: OMNI 350; Contrast volume: 100 ml; Contrast route: INTRAVENOUS (IV); COMPARISON: CT chest abdpel w/*[id number] 05/30/2024 11:21 AM RADIATION DOSE METRICS: Total DLP (mGy-cm): 2443.53 FINDINGS: Liver: Normal appearance of the liver. Gallbladder and biliary ducts: No calcified stones or ductal dilation. Pancreas: No ductal dilation. Spleen: Unremarkable. Adrenal glands: Unremarkable. Kidneys and ureters: Redemonstrated horseshoe kidney. Similar dilated right upper pole calices with layering calculi. Similar horseshoe kidney with dilated right upper pole calices. Stomach and bowel: No obstruction. No mucosal thickening. Appendix: No evidence of appendicitis. Intraperitoneal space: No free air. No significant fluid collection. Vasculature: Unremarkable. Lymph nodes: No enlarged lymph nodes. Urinary bladder: Unremarkable as visualized. Reproductive: Unremarkable as visualized. Bones/joints: Unremarkable. No acute fracture. Soft tissues: Unremarkable. CT/CT chest abdpel w/*[id number] IMPRESSION: 1. No lymphadenopathy in the chest. 2. Similar scattered reticular and tree-in-bud opacities in the left upper and lower lobes. IMPRESSION: No lymphadenopathy in the abdomen or pelvis.
[2024-09-05] MEDS: iohexol 350 mg/mL 500 mL Btl (per mL) PO (09:08)
[2024-09-05] MEDS: iohexol 350 mg/mL 500 mL Btl (per mL) IV (09:40)
== END 2024-09-05 08:43 | disposition home or self-care (01) ==
LOC: RAD 08:43
PROVIDERS: Visit Provider Nurse Practitioner Family
DX: C81.10 Nodular sclerosis Hodgkin lymphoma, unspecified site (principal); R91.8 Other nonspecific abnormal finding of lung field; Z98.890 Other specified postprocedural states; Z96.89 Presence of other specified functional implants; R59.0 Localized enlarged lymph nodes; N28.89 Other specified disorders of kidney and ureter
CPT/HCPCS: 71260; 74177

== ENCOUNTER 2024-10-24 14:30 | Oncology outpatient (recurring) (ONCR) | payer BC, MEDICAID, SELFPAY ==
[2024-10-01 15:36] LABS: Ferritin 260 ng/mL (30-400); Iron 56 ug/dL (59-158); Percent Saturation 19.5 % (20-50); Total Iron Binding Capacity 286 mcg/dl; Unsaturated Iron Binding 230 ug/dL (112-347)
== END 2024-10-24 23:59 | disposition home or self-care (01) ==
PROVIDERS: Nurse Practitioner Family; PCP Family Medicine Adult Medicine; Visit Provider Internal Medicine
DX: Z53.9 Procedure and treatment not carried out, unspecified reason; Z45.2 Encounter for adjustment and management of vascular access device
CPT/HCPCS: 36591; 82728; 83540; 83550; 96523

== ENCOUNTER 2024-11-28 10:10 | Oncology outpatient (recurring) (ONCR) | payer BC, MEDICAID, SELFPAY ==
[2024-11-28 11:10] LABS: Basophils % 0.1 %; Eosinophils # 0.1 10^3/uL (0.0-0.8); Eosinophils % 1.2 %; Hematocrit 41.2 % (37-53); Lymphocytes # 1.9 10^3/uL (0.8-4.8); Lymphocytes % 27.2 %; Mean Corpuscular Hemoglobin 28.3 pg (27-33); Mean Corpuscular Volume 85.8 fl (82-101); Mean Platelet Volume 8.8 fL (7.4-10.4); Monocytes # 0.7 10^3/uL (0.2-0.9); Monocytes % 9.4 %; Neutrophils # 4.26 10^3/uL (1.8-7.7); Neutrophils % 61.8 %; Nucleated Red Blood Cells % 0 %; Platelet Count 214 10^3/cmm (157-399); Red Cell Distribution Width 13.2 % (12.1-15.1)
[2024-11-28 11:15] LABS: LAB Peripheral Smear Sent for Review
[2024-11-28 11:24] LABS: Alanine Aminotransferase 39 U/L (0-41); Alkaline Phosphatase 106 U/L (40-130); Anion Gap 14.9 (5-19); Aspartate Amino Transferase 26 U/L (0-40); Blood Urea Nitrogen 18 mg/dL (6-20); Carbon Dioxide 25 mmol/L (22-29); Chloride 103 mmol/L (98-107); Glucose 83 mg/dL (65-115); Osmolality Calculated 289 mOsm/kg (285-295); Potassium 3.9 mmol/L (3.5-5.1); Sodium 139 mmol/L (136-145); Total Bilirubin 0.4 mg/dL (0.15-1.2)
== END 2024-12-24 23:59 | disposition home or self-care (01) ==
PROVIDERS: Nurse Practitioner Family; PCP Family Medicine; Visit Provider Internal Medicine
DX: C81.10 Nodular sclerosis Hodgkin lymphoma, unspecified site (principal)
CPT/HCPCS: 36591; 80053; 80503; 85025

== ENCOUNTER 2025-01-04 10:56 | Oncology outpatient (recurring) (ONCR) | payer BC, MEDICAID, SELFPAY | END 2025-01-24 23:59 | disposition home or self-care (01) | PROVIDERS: PCP Family Medicine; Visit Provider Internal Medicine | DX: Z45.2 Encounter for adjustment and management of vascular access device (principal); Z95.828 Presence of other vascular implants and grafts | CPT/HCPCS: 96523 ==

== ENCOUNTER 2025-02-01 11:07 | Oncology outpatient (recurring) (ONCR) | payer BC, MEDICAID, SELFPAY | END 2025-02-24 23:59 | disposition home or self-care (01) | LOC: ONCMED 11:07 | PROVIDERS: PCP Family Medicine; Visit Provider Internal Medicine | DX: Z45.2 Encounter for adjustment and management of vascular access device (principal); Z95.828 Presence of other vascular implants and grafts | CPT/HCPCS: 96523 ==

== ENCOUNTER 2025-03-22 17:30 | Oncology outpatient (recurring) (ONCR) | payer BC, MEDICAID, SELFPAY ==
[2025-03-06 11:29] LABS: Hematocrit 41.7 % (37-53); Hemoglobin 14.00 g/dL (11.27-16.99); Mean Corpuscular HGB Conc 33.6 g/dL (30-55); Mean Corpuscular Hemoglobin 28.8 pg (27-33); Mean Corpuscular Volume 85.8 fl (82-101); Nucleated Red Blood Cells % 0 %; Platelet Count 200 10^3/cmm (157-399); Red Blood Count 4.86 10^6/uL (3.85-5.65); White Blood Count 7.74 10^3/uL (3.29-11.43)
--- NOTE | 2025-03-06 12:00 | CTR_ITS ---
PROCEDURE INFORMATION: Exam: CT Neck With Contrast Exam date and time: 03/06/2025 12:17 PM Age: 24 years old Clinical indication: Condition or disease; Other: Hodgkin lymphoma, prior surgery; Surgery date: 6+ months; Surgery type: Port TECHNIQUE: Imaging protocol: Computed tomography of the neck with contrast. Radiation optimization: All CT scans at this facility use at least one of these dose optimization techniques: automated exposure control; mA and/or kV adjustment per patient size (includes targeted exams where dose is matched to clinical indication); or iterative reconstruction. Contrast material: OMNI 350; Contrast volume: 100 ml; Contrast route: INTRAVENOUS (IV); COMPARISON: PT PET skull to thigh SUBS [id number] 02/21/2024 9:07 AM RADIATION DOSE METRICS: Total DLP (mGy-cm): 335.8 FINDINGS: Salivary glands: Normal. Glands are normal in size. Pharynx: Unremarkable. No significant tonsillar enlargement. Larynx: Unremarkable. Epiglottis is normal. Thyroid: Normal. No enlarged or calcified nodules. Trachea: Visualized trachea is unremarkable. Lungs: Unremarkable as visualized. Lymph nodes: There is a prominent right cervical level 2 lymph node measuring 1.6 x 1.3 x 2 cm. It has fatty hilum. Additional bilateral shotty cervical lymph nodes. The largest is seen on the left side measures 1.7 x 0.8 x 2.3 cm. It has fatty hilum as well. Shotty mediastinal lymph nodes. Bones/joints: Unremarkable. No acute fracture. Soft tissues: Unremarkable. No significant soft tissue swelling. CT/CT neck w con* [id number] IMPRESSION: 1. Prominent right cervical level 2 lymph node. PET-CT scanning can be obtained for further evaluation. 2. Additional findings as described.
--- NOTE | 2025-03-06 12:00 | CTR_ITS ---
PROCEDURE INFORMATION: Exam: CT Chest With Contrast; Diagnostic Exam date and time: 03/06/2025 12:10 PM Age: 24 years old Clinical indication: Condition or disease; Other: Hodgkin lymphoma; Prior surgery; Surgery date: 6+ months; Surgery type: Port TECHNIQUE: Imaging protocol: Diagnostic computed tomography of the chest with contrast. Radiation optimization: All CT scans at this facility use at least one of these dose optimization techniques: automated exposure control; mA and/or kV adjustment per patient size (includes targeted exams where dose is matched to clinical indication); or iterative reconstruction. Contrast material: OMNI 350; Contrast volume: 100 ml; Contrast route: INTRAVENOUS (IV); COMPARISON: CT chest abdpel w/*[id number] 09/05/2024 9:30 AM RADIATION DOSE METRICS: Total DLP (mGy-cm): 2326.98 FINDINGS: Lungs: Stable lingular branching nodular lesions. Multiple stable left upper lobe subcentimeter nodules. Largest measures 6 mm. No significant change of right basilar pleural-based 8 mm nodule. Pleural spaces: Unremarkable. No pneumothorax. No pleural effusion. Heart: Unremarkable. No cardiomegaly. No pericardial effusion. Lymph nodes: Paratracheal lymph node 1 cm is smaller when compared to the previous study. Bilateral hilar shotty lymph nodes are smaller as well. Vasculature: Unremarkable. No aortic aneurysm. Bones/joints: Mild diffuse thoracic spine degenerative changes. Soft tissues: Unremarkable. PROCEDURE INFORMATION: Exam: CT Abdomen And Pelvis With Contrast Exam date and time: 03/06/2025 12:10 PM Age: 24 years old Clinical indication: Condition or disease; Other: Hodgkin lymphoma; Prior surgery; Surgery date: 6+ months; Surgery type: Port TECHNIQUE: Imaging protocol: Computed tomography of the abdomen and pelvis with contrast. Radiation optimization: All CT scans at this facility use at least one of these dose optimization techniques: automated exposure control; mA and/or kV adjustment per patient size (includes targeted exams where dose is matched to clinical indication); or iterative reconstruction. Contrast material: OMNI 350; Contrast volume: 100 ml; Contrast route: INTRAVENOUS (IV); COMPARISON: CT chest abdpel w/*[id number] 05/30/2024 11:21 AM RADIATION DOSE METRICS: Total DLP (mGy-cm): 2326.98 FINDINGS: Liver: Normal. No mass. Gallbladder and biliary ducts: Normal. No calcified stones. No ductal dilation. Pancreas: Normal. No ductal dilation. Spleen: Normal. No splenomegaly. Adrenal glands: Normal. No mass. Kidneys and ureters: Horseshoe kidney. No significant change of dilated calices in the upper pole of the right moiety. Multiple stones are seen in the dilated calyces. Largest measures 1.7 x 1.5 cm. Stomach and bowel: No small bowel loop dilatation. Appendix: Appendix is normal. Intraperitoneal space: Unremarkable. No free air. No significant fluid collection. Vasculature: Unremarkable. No abdominal aortic aneurysm. Lymph nodes: Unremarkable. No enlarged lymph nodes. Urinary bladder: Unremarkable as visualized. Reproductive: Unremarkable as visualized. Bones/joints: Mild lumbar spine degenerative changes. Soft tissues: Unremarkable. CT/CT chest abdpel w/*[id number] IMPRESSION: 1. Interval improvement of mediastinal and bilateral hilar adenopathy. 2. Stable pulmonary parenchymal findings. 3. Mild diffuse thoracic spine degenerative changes. IMPRESSION: 1. Horseshoe kidney. No significant change of dilated calices in the upper pole of the right moiety. Multiple stones are seen in the dilated calyces. Largest measures 1.7 x 1.5 cm. 2. Mild lumbar spine degenerative changes.
[2025-03-06] MEDS: iohexol 350 mg/mL 500 mL Btl (per mL) PO (12:29)
[2025-03-06] MEDS: iohexol 350 mg/mL 500 mL Btl (per mL) IV ×2 (12:30)
[2025-03-06 12:43] LABS: Alanine Aminotransferase 33 U/L (0-41); Albumin Level 4.2 g/dL (3.5-5.2); Alkaline Phosphatase 94 U/L (40-130); Anion Gap 14.7 (5-19); Aspartate Amino Transferase 23 U/L (0-40); Blood Urea Nitrogen 14 mg/dL (6-20); Calcium 9.0 mg/dL (8.5-10.5); Carbon Dioxide 24 mmol/L (22-29); Chloride 105 mmol/L (98-107); Ferritin 242 ng/mL (30-400); Globulin 3.1 g/dL (1.3-4.6); Glucose 90 mg/dL (65-115); Iron 84 ug/dL (59-158); Osmolality Calculated 290 mOsm/kg (285-295); Potassium 3.7 mmol/L (3.5-5.1); Sodium 140 mmol/L (136-145); Total Iron Binding Capacity 258 mcg/dl; Total Protein 7.3 g/dL (6.6-8.7); Unsaturated Iron Binding 174 ug/dL (112-347); Uric Acid 6.9 mg/dL (3.4-7.0)
--- NOTE | 2025-03-22 17:30 | PETR_ITS ---
PROCEDURE INFORMATION: Exam: PET/CT Skull Base to Mid-thigh Exam date and time: 03/22/2025 6:17 PM Age: 24 years old Clinical indication: Condition or disease; Primary cancer: Nodular sclerosis hodkin lymphoma; Additional info: Nodular sclerosis hodkin lymphoma, Dr hyatt would like this on 03/22/25 LABS AND CLINICAL REPORTS: Glucose: 86 mg/dl Treatment strategy for malignancy (PET staging): Restaging (PS) TECHNIQUE: Imaging protocol: Following at least four-hour fasting and following the injection of radiopharmaceutical, low dose CT images were obtained. Then, PET images were obtained. Attenuation corrected images were constructed using the CT scan. Fused images of PET and CT were reviewed. The standardized uptake values (SUV) reported below are maximum values within a region of interest, expressed in gm/ml. Exam includes orbital meatal line to mid-thigh. SUV normalization method: BodyWeight Radiopharmaceutical: 12.57 mCi F-18 FDG (Fluorodeoxyglucose), IV. Time of imaging post radiopharmaceutical administration: 45 minutes Injection site: L WRIST COMPARISON: 1. PT PET skull to thigh SUBS [id number] 02/21/2024 9:[address] neck w con* [id number] 03/06/2025 12:[address] chest abdpel w/*[id number] 03/06/2025 12:10 PM FINDINGS: Tubes, catheters and devices: Left chest port terminates at the superior cavoatrial junction with focal FDG uptake at the subclavian vein showing SUV max 11.6 on axial image 113. Brain: Visualized brain has normal physiologic uptake. Pharynx: Similar symmetric tonsillar uptake without underlying CT abnormality is likely benign physiologic or inflammatory. Larynx: Symmetric uptake without underlying CT abnormality is likely benign activation. Lungs, pleura and trachea: No abnormal uptake. Heart: Normal physiologic uptake. Mediastinal space: No abnormal uptake. Liver: No abnormal uptake. Gallbladder and biliary ducts: No abnormal uptake. Pancreas: No abnormal uptake. Spleen: No abnormal uptake. Adrenal glands: No abnormal uptake. 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 Stomach and bowel: No abnormal uptake. Vasculature: No abnormal uptake. Lymph nodes: Mildly prominent FDG avid right submandibular node measures 6 mm in the short axis on axial image 78 with SUV max 4.4, previously 8 mm in the short axis on 03/06/[address] and 4 mm in the short axis in January 2024. Skeleton: No abnormal uptake in the visualized axial and appendicular skeleton. Mild degenerative change along the spine. Soft tissues: No abnormal uptake in the visualized head, neck, chest, abdomen, pelvis, and extremities. Small fat containing umbilical hernia. METRICS: Mediastinal blood pool: SUV mean 1.9 Liver uptake: SUV mean 3.0 PET/PET skull to thigh SUBS [id number] IMPRESSION: 1. Mildly prominent FDG avid right submandibular lymph node, mildly decreased compared to 03/06/2025. Favor reactive with neoplastic involvement thought less likely given decreased size, although remains mildly larger than comparison PET-CT from January 2024 when it was non FDG avid. 2. Focal FDG uptake at left subclavian vein along chest port catheter. This may be inflammatory, possibly thrombus. 3. Additional chronic and incidental findings as above.
== END 2025-03-26 23:59 | disposition home or self-care (01) ==
LOC: ONCMED 03-25 09:03
PROVIDERS: PCP Family Medicine; Visit Provider Internal Medicine
DX: C81.10 Nodular sclerosis Hodgkin lymphoma, unspecified site; R59.0 Localized enlarged lymph nodes; R93.89 Abnormal findings on diagnostic imaging of other specified body structures; Z96.89 Presence of other specified functional implants; N28.89 Other specified disorders of kidney and ureter; N20.0 Calculus of kidney; M47.9 Spondylosis, unspecified; K42.9 Umbilical hernia without obstruction or gangrene; Z53.9 Procedure and treatment not carried out, unspecified reason
CPT/HCPCS: 36591; 70491; 71260; 74177; 78815; 80053; 82728; 83010; 83540; 83550; 83615; 84550; 85025; A9552

== ENCOUNTER 2025-04-12 14:30 | Oncology outpatient (recurring) (ONCR) | payer BC, MEDICAID, SELFPAY ==
--- NOTE | 2025-04-12 14:30 | USCV_ITS ---
Naeem Juarez Age: 24 Gender: M : 2000 Exam Date: 04/12/2025 14:39 Ordering Phys: Loco West MD Technologist: Exam Location: [facility] – [place] Indication: check port for blood clot HISTORY: check for blood clot in port PROCEDURES: Venous duplex imaging was performed in only the left upper extremity. Serial compression, augmentation maneuvers, and spectral Doppler flow evaluation were performed. FINDINGS: Normal 2-D, color Doppler and phasicity noted in the left upper extremity venous system extending from the left internal jugular vein through the main forearm. No thrombosis or occlusion noted. CONCLUSIONS No left upper extremity DVT. Dr. Zunilda Vázquez DO (Electronically Signed) Final Date: 12 April 2025 15:25 S
== END 2025-04-26 23:59 | disposition home or self-care (01) ==
LOC: RAD 04-13 → ONCMED 04-15 09:53
PROVIDERS: PCP Family Medicine; Visit Provider Internal Medicine
DX: C81.10 Nodular sclerosis Hodgkin lymphoma, unspecified site (principal); Z95.828 Presence of other vascular implants and grafts
CPT/HCPCS: 93971

== ENCOUNTER 2025-04-29 06:01 | Day surgery (SDC) | payer BC, MEDICAID, SELFPAY ==
--- NOTE | 2025-04-27 10:51 | ANES.PREANE2 ---
Pre-Anesthetic Assessment Height/Weight: Height 5 ft 11 in Preop Diagnosis: Completed chemotherapy Operation Date: 04/29/25 07:00 Proposed Procedures p Portacath Removal 56431 Z95.828(Not Applicable) - Shaheed Varela MD Was Beta Ronnie taken within 24 hours: N/A Was Clonidine taken within 24 hours: N/A Social No alcohol and No tobacco Exam alert, oriented x 3, clear to auscultation bilaterally and regular rate & rhythm Airway Submandibular: within normal limits Cervical ROM: within normal limits Mallampati: Class I Dentition: full Comments: Comments: [place] Anesthetic Plan ASA status: 3 Anesthesia: Choice Other: No prior issues with anesthesia Patient completed lymphoma treatment and now requires port removed History of hypertension on valsartan Suspected PAU, no treatment BMI 49.9 GERD, controlled with Protonix Labs reviewed 03/06/2025 acceptable for procedure Prior EKG showing sinus tachycardia Medications/Allergies Home Medications ?Medication ?Instructions ?Recorded ?Confirmed ?Last Taken ?Type pantoprazole 40 mg tablet,delayed 40 mg PO DAILY #90 tabs 02/27/25 04/29/25 04/28/25 Rx release (Protonix) dicyclomine 20 mg tablet 20 mg PO TID PRN abdominal pain 04/10/25 04/25/25 Unknown Rx #30 tabs ondansetron 8 mg disintegrating 8 mg PO TID PRN nausea and 04/10/25 04/25/25 Unknown Rx tablet vomiting #30 tabs valsartan 160 mg tablet 160 mg PO DAILY #90 tabs 04/12/25 04/29/25 04/28/25 Rx fluoxetine 40 mg capsule 40 mg PO DAILY 04/25/25 04/29/25 04/28/25 History Allergies Allergy/AdvReac Type Severity Reaction Status Date / Time No Known Allergies Allergy Verified 04/29/25 06:11 [facility] Anesthesia Medical History Lumbar paraspinal muscle spasm Chronic GERD without esophagitis Hypertension, essential Obstructive sleep apnea treated with BiPAP Nodular sclerosis Hodgkin lymphoma, unspecified site see Oncology at [facility] Excessive weight loss Last 110 pounds in last 6 to 8 weeks Allergic rhinitis due to allergen Obesity (BMI 30-39.9) Anxiety and depression Surgical History History of lymph node biopsy Port-A-Cath in place Family History Father Stroke Hypertension Mother Thyroid disease Social History Smoking and tobacco/nicotine status: never used tobacco/nicotine Quit status (tobacco/nicotine): has quit using Year quit tobacco: 2021 Former quit date comment: 2 years vaping Alcohol intake: current Alcohol intake frequency: holidays/special occasions only Substance/Drug Use: never Household members: other Details: lives with mother Marital status: Single Number of children: 0 Highest education level completed: High School Graduate Current occupation: manager part; works at [employer] Anesthesia Cardiac Studies: Echocardiogram 08/24/23
[2025-04-29] VITALS (7 sets, daily range): BP systolic 120–146; BP diastolic 77–105; PULSE 73–87; RESP 16–20; TEMP 36.4–37.1; O2SAT 97–100; BMI 49.9
--- NOTE | 2025-04-29 06:50 | P.HPUD_ITS ---
Surgery/Procedure H&P Update DATE OF PROCEDURE: April 29, 2025 DATE H&P PERFORMED: 04/16/25 H&P UPDATE INFORMATION: I have reviewed H&P completed within last 30 days, I have examined patient prior to procedure, No changes to prior documentation, H&P is in [facility] EMR on date indicated and Risks and benefits of the procedure reviewed PREOP DIAGNOSIS: Completed chemotherapy PLANNED PROCEDURE: Operation Date: 04/29/25 07:00 Proposed Procedures p Portacath Removal 50395 [id number](Not Applicable) - Shaheed Varela MD
[2025-04-29] MEDS: ceFAZolin 3,000 MG in sodium chloride 0.9% (plus) 100 ML 200 MG IV (07:00)
[2025-04-29] MEDS: BUPivacaine 0.25% INJ 10 mL INJECTION (07:25)
[2025-04-29] MEDS: lidocaine-epi 1% 20 mL INJ 10 ML INJECTION (07:26)
--- NOTE | 2025-04-29 07:33 | P.OP_ITS ---
Operative Report Date of procedure: April 29, 2025 Pre-op diagnosis: History of hodking lymphoma Post-op diagnosis: Same Post-op findings: Port-A-Cath in place in the left upper chest Procedure done: Excision of Port-A-Cath Specimens removed/disposition: Port-A-Cath Surgeon: Shaheed Varela MD Chartered Accountant: [facility] OR Staff Estimated blood loss: 5 Complications: None apparent Brief History: 24-year-old male who presented to my office for evaluation for removal of Port-A-Cath after completing chemotherapy. Discussion of risk benefits was done and we decided to proceed Procedure: patient was brought into the OR, he was placed in a supine position. General anesthesia was given. The abdomen was prepped and draped in the usual sterile fashion. A timeout was conducted. Local anesthesia was infiltrated. I made a 3.5 cm incisions overlying the previous surgical scar, the incision was deepened into the subcutaneous tissue entered the port was identified. The capsule around the port was opened with electrocautery, scar tissue around the cuff of the catheter was also opened up with electrocautery. The port was delivered through the skin and removed while steady pressure was held in the subclavian vein. The tract was obliterated with a #3-0 Vicryl [id number] suture. The capsule was excised using a Metzenbaum scissor. Hemostasis was achieved. The wound was closed in layers using #3-0 Vicryl for the subcutaneous tissue and #4- 0 Monocryl for the skin, Dermabond was applied and a sterile dressing was placed on top. At the end of the procedure all counts were correct the patient tolerated well the procedure was transferred to the PACU in stable condition
--- NOTE | 2025-04-29 08:36 | ANE.PACU2 ---
Inpatient post-anesthesia follow up: Airway intact: Yes Vital signs: Temperature 97.7 F Pulse Rate 75 Respiratory Rate 16 Blood Pressure 131/81 Pulse Oximetry 100 Oxygen Delivery Me thod Room Air Oxygen Flow Rate Fraction of Inspir ed Oxygen Hydration adequate: Yes Nausea and vomiting: No Pain level: 1 Mental status: Baseline
== END 2025-04-29 08:35 | disposition home or self-care (01) ==
PROVIDERS: PCP Family Medicine; Visit Provider Surgery
PROC: (CPT 36589; principal; 2025-04-29 07:00)
DX: C81.9A Hodgkin lymphoma, unspecified, in remission (principal); I10 Essential (primary) hypertension; G47.33 Obstructive sleep apnea (adult) (pediatric); K21.9 Gastro-esophageal reflux disease without esophagitis; E66.9 Obesity, unspecified; Z68.42 Body mass index [BMI] 45.0-49.9, adult; F41.8 Other specified anxiety disorders; Z87.891 Personal history of nicotine dependence
CPT/HCPCS: 36590; J0690; J2250; J2704; J3490; J7030; J9999

== ENCOUNTER → 2025-05-16 11:45 | Outpatient (BNVA) | payer BC, MEDICAID, SELFPAY | PROVIDERS: PCP Family Medicine; Visit Provider Family Medicine | DX: Z00.00 Encounter for general adult medical examination without abnormal findings (principal) | CPT/HCPCS: 80053; 80061; 84443; 85025 ==